=== PATIENT | male | born 1975 | race Caucasian/White ===

== ENCOUNTER 2017-04-09 15:12 | Emergency (ER) | payer SELFPAY ==
[~2017-04-09] VITALS: Ht 177.8 cm; Wt 60.9 kg
[~2017-04-09 15:12] MED LIST: ALBU1AER9 INH
[2017-04-09 15:14] VITALS: TEMP 36.5; Ht 177.8 cm; Wt 60.9 kg
[2017-04-09] MEDS ORDERED: XYLOCAINE 1%/SOD BICARB 20 ML VIAL INFIL ONE ×2 (15:40→15:45)
--- NOTE | 2017-04-09 16:11 | EMERGENCY ROOM VISIT NOTE ---
ED Visit Note First contact with patient: 15:21 CHIEF COMPLAINT: Left forearm laceration HISTORY OF PRESENT ILLNESS: This 41-year-old male patient presents to the emergency department approximately one hour after cutting the left posterior forearm. The patient states his friend was using a chain saw to cut underbrush , when the chainsaw kicked up and cut his posterior left forearm. The bleeding has not stopped, but has slowed significantly. Denies weakness or numbness of the right arm or fingers. The patient rates the pain as throbbing and 9.5/10. The patient denies any other injuries. The patient's Tetanus shot is up to date. REVIEW OF SYSTEMS: A 6 system review of systems was completed with positives and pertinent negatives listed in the HPI. ALLERGIES: None MEDICATIONS: None PMH: None SOCIAL HISTORY: The patient lives locally with family. He denies drug, alcohol use. He does report smoking 1 pack cigarettes per day. PHYSICAL EXAM: Vital Signs: Reviewed Nurse's notes, vital signs stable. GENERAL : 41-year-old male, in no acute distress, well-developed, well-nourished. SKIN : There is a 4 cm long laceration on the posterior aspect of the middle of the left forearm. The edges gape apart with and without traction. There is no foreign material in the wound and it looks clean. There is minimal active bleeding. There is a visible vein noted in the wound, however the vein remains in tact. Muscle is visible, however, the wound did not cut below the fascia. No other deep structures such as tendons or bones are seen in the base of the wound. 2 smaller, 1.5 cm lacerations just proximal to the wound on the forearm. These are not down to the muscle or fascia. Normal strength and movement of the right upper extremity, elbow, wrist, hand. Capillary refill less than 2 seconds. Normal sensation to light and sharp touch. EMERGENCY DEPARTMENT COURSE: I examined the patient. Verbal consent was obtained to perform the procedure. Using sterile technique the wound was cleansed with Betadine. The area was sterilely draped. 10 ml of 1% buffered lidocaine was used to anesthetize the laceration on the posterior left forearm. Once the patient was anesthetized, the wound was copiously irrigated under pressure with sterile saline. The wound was explored and was as described above. The laceration was repaired by our PA student under my direct supervision using 20 simple interrupted 5-0 nylon sutures with the wound edges being well approximated. The patient tolerated the procedure well. Hemostasis was achieved. The area was cleaned with sterile saline and dressed with bacitracin ointment and bandage. The patient was discharged home in good condition. DIFFERENTIAL DIAGNOSIS: Laceration with muscle or tendon involvement, forearm fracture, FB in laceration, laceration with blood vessel involvement, and others. DIAGNOSIS: Left posterior forearm laceration DISCHARGE INSTRUCTIONS & TREATMENT: You have received 20 sutures on your right arm. These sutures are NOT dissolvable and WILL need to be removed by a health care provider in 8-10 days. You can return to the Emergency Department or contact your Primary Care Provider to have the sutures removed. Proper wound care is essential for adequate wound healing and infection prevention. You can shower and clean the wound with soap and water. Do not scour over the wound, pat dry with a towel. Do not submerse the wound (i.e. bathe or dish wash) until the sutures have been removed. You can use an antibiotic ointment with a dressing over the wound for the next 3-4 days. After this time you may leave the wound dry and open to the air. If crust develops over the wound you can use a Q-tip to apply a 1:1 peroxide:water solution to clean the wound. Look for signs of infection of the wound including: increased pain, swelling, foul discharge, streaking, or increased temperature. If any of these are noticed you should return to the Emergency Department for further assessment and treatment. As with any laceration you may have received nerve damage to the surrounding tissues. This damage may or may not be permanent. You should keep the area covered with sunscreen for the first 6 months to 1 year when at risk for exposure to help minimize scarring. You can also use scar reducing creams or Vitamin E oil to help minimize scarring. For pain control, you can use the following kzze-bkn-mevajkh medicines (if >12 yo): - Regular strength (325mg/tab) Tylenol (acetaminophen) 2 tabs every 4-6 hours as needed. Do not exceed 9 tablets in a 24 hour period. Avoid taking more than 3 grams (3000 mg) of Tylenol per day. This includes any other sources of acetaminophen you may take on a regular basis. - Regular strength (200 mg/tab) Advil (ibuprofen) 1-2 tabs every 4-6 hours as needed. Do not exceed a dose of 3200 mg per day. Return to the emergency department if your symptoms worsen despite treatment course outlined above. Current/Historical Medications No Active Prescriptions or Reported Meds Allergies Coded Allergies: No Known Allergies (Unverified , 08/07/15) Vital Signs Date Time Temp Pulse Resp B/P (MAP) Pulse Ox O2 Delivery O2 Flow Rate FiO2 04/09/17 17:20 71 16 136/87 96 04/09/17 15:14 36.5 91 16 131/85 97 Room Air Departure Information Impression Primary Impression: Laceration of upper extremity Dispostion Home / Self-Care Condition GOOD Prescriptions No Active Prescriptions or Reported Meds Referrals No Doctor, Assigned (PCP) Patient Instructions ED Laceration Ext Sutr Stap Tape, DancingAnchovy Additional Instructions You have received 20 sutures on your right arm. These sutures are NOT dissolvable and WILL need to be removed by a health care provider in 8-10 days. You can return to the Emergency Department or contact your Primary Care Provider to have the sutures removed. Proper wound care is essential for adequate wound healing and infection prevention. You can shower and clean the wound with soap and water. Do not scour over the wound, pat dry with a towel. Do not submerse the wound (i.e. bathe or dish wash) until the sutures have been removed. You can use an antibiotic ointment with a dressing over the wound for the next 3-4 days. After this time you may leave the wound dry and open to the air. If crust develops over the wound you can use a Q-tip to apply a 1:1 peroxide:water solution to clean the wound. Look for signs of infection of the wound including: increased pain, swelling, foul discharge, streaking, or increased temperature. If any of these are noticed you should return to the Emergency Department for further assessment and treatment. As with any laceration you may have received nerve damage to the surrounding tissues. This damage may or may not be permanent. You should keep the area covered with sunscreen for the first 6 months to 1 year when at risk for exposure to help minimize scarring. You can also use scar reducing creams or Vitamin E oil to help minimize scarring. For pain control, you can use the following vcwd-kdr-ddwtqdn medicines (if >12 yo): - Regular strength (325mg/tab) Tylenol (acetaminophen) 2 tabs every 4-6 hours as needed. Do not exceed 9 tablets in a 24 hour period. Avoid taking more than 3 grams (3000 mg) of Tylenol per day. This includes any other sources of acetaminophen you may take on a regular basis. - Regular strength (200 mg/tab) Advil (ibuprofen) 1-2 tabs every 4-6 hours as needed. Do not exceed a dose of 3200 mg per day. Return to the emergency department if your symptoms worsen despite treatment course outlined above. Problem Qualifiers Primary Impression: Laceration of upper extremity Encounter type: initial encounter Laterality: left Qualified Codes: S41.112A - Laceration without foreign body of left upper arm, initial encounter
[2017-04-09 17:20] VITALS: BP 136/87; PULSE 71; O2SAT 96
== END 2017-04-09 17:22 | disposition home or self-care (01) ==
LOC: C.EDB 15:14 → C.EDD 17:22
DX: S41.112A Laceration without foreign body of left upper arm, initial encounter (principal); W29.3XXA Contact with powered garden and outdoor hand tools and machinery, initial encounter; F17.200 Nicotine dependence, unspecified, uncomplicated

== ENCOUNTER 2017-04-25 18:47 | Emergency (ER) | payer SELFPAY ==
[~2017-04-25] VITALS: Ht 177.8 cm; Wt 58.5 kg
[2017-04-25 18:49] VITALS: TEMP 36.5; Ht 177.8 cm; Wt 58.5 kg
--- NOTE | 2017-04-25 19:06 | EMERGENCY ROOM VISIT NOTE ---
ED Visit Note First contact with patient: 18:52 CHIEF COMPLAINT: Suture removal HPI: This patient returns to the ED today for removal of sutures that were placed 16 days ago. There has been no swelling, redness, or drainage from the wound. The patient feels like the laceration is healing well. The patient denies fevers, chills, nausea, vomiting, pus, or other concerning symptoms. He states he has late coming in to have the sutures removed because he has been very busy at work. REVIEW OF SYSTEMS: A complete 6 point review of systems was reviewed with the patient with pertinent positives and negatives as per history of present illness. All else were negative. PMH: None MEDS: None Allergies: None SOCIAL HISTORY: The patient lives locally with family. He denies drug, tobacco use. The patient does report socially drinking alcohol. PHYSICAL EXAM: Vital Signs: Reviewed Nurse's notes. There is a sutured wound on the left forearm with no signs of infection. There is no erythema, swelling , or tenderness. EMERGENCY DEPARTMENT COURSE: The 20 sutures were removed without any difficulty and there was no separation of the wound edges. There was a mild amount of drainage from a portion of the wound as the scab came up with the sutures. The wound was bandaged with bacitracin ointment and a Band-Aid. The patient was discharged home in good condition. DIAGNOSIS: Healing laceration and suture removal DISCHARGE INSTRUCTIONS AND TREATMENT: Wash any remaining crusts off of the wound today and resume your normal activities. Current/Historical Medications No Active Prescriptions or Reported Meds Allergies Coded Allergies: No Known Allergies (Unverified , 08/07/15) Vital Signs Date Time Temp Pulse Resp B/P (MAP) Pulse Ox O2 Delivery O2 Flow Rate FiO2 04/25/17 18:49 36.5 98 18 120/79 95 Room Air Departure Information Impression Primary Impression: Encounter for removal of sutures Additional Impression: Laceration of left forearm Dispostion Home / Self-Care Condition GOOD Prescriptions No Active Prescriptions or Reported Meds Referrals No Doctor, Assigned (PCP) Patient Instructions [facility] Additional Instructions Proper wound care is essential for adequate wound healing and infection prevention. You can shower and clean the wound with soap and water. Do not scour over the wound, pat dry with a towel. Do not submerse the wound (i.e. bathe or dish wash) until the wound has fully healed. You can use an antibiotic ointment with a dressing over the wound for the next 3-4 days. After this time you may leave the wound dry and open to the air.\ For pain control, you can use the following tiiz-csg-dgioohm medicines (if >12 yo): - Regular strength (325mg/tab) Tylenol (acetaminophen) 2 tabs every 4-6 hours as needed. Do not exceed 9 tablets in a 24 hour period. Avoid taking more than 3 grams (3000 mg) of Tylenol per day. This includes any other sources of acetaminophen you may take on a regular basis. - Regular strength (200 mg/tab) Advil (ibuprofen) 1-2 tabs every 4-6 hours as needed. Do not exceed a dose of 2400 mg per day. Please return to the emergency department for worsening symptoms including pus, redness, fever, chills, nausea, vomiting, body aches, or other associated symptoms. Problem Qualifiers Additional Impression: Laceration of left forearm Encounter type: subsequent encounter Qualified Codes: S51.812D - Laceration without foreign body of left forearm, subsequent encounter
[2017-04-25 19:17] VITALS: BP 129/89; PULSE 89; O2SAT 93
== END 2017-04-25 19:18 | disposition home or self-care (01) ==
LOC: C.EDB 18:47 → C.EDD 19:18
DX: S51.812D Laceration without foreign body of left forearm, subsequent encounter (principal); X58.XXXD Exposure to other specified factors, subsequent encounter

== ENCOUNTER 2017-11-03 22:48 | Emergency (ER) | payer SELFPAY ==
[~2017-11-03] VITALS: Ht 177.8 cm; Wt 63.8 kg
[2017-11-03 23:03] VITALS: TEMP 36.7; Ht 177.8 cm; Wt 63.8 kg
[2017-11-03] MEDS ORDERED: SODIUM CHLORIDE 0.9% 1000ML 1,000 ML IV STA (23:15)
[2017-11-03 23:30] VITALS: O2SAT 98
[2017-11-03 23:36] LABS: BASO % 0.5 %; BASO ABS # 0.04 K/uL (0-0.2); EOS ABS # 0.45 K/uL (0-0.5); HEMATOCRIT 39.1 % (42-52); HEMOGLOBIN 13.7 g/dL (14.0-18.0); IG# 0.01 K/uL (0.00-0.02); MEAN CELL VOLUME 93.3 fL (80-100); MEAN CORPUSCULAR HEMOGLOBIN 32.7 pg (25-34); MEAN PLATELET VOLUME 9.4 fL (7.4-10.4); MONO % 9.7 %; MONO ABS # 0.72 K/uL (0.11-0.59); NEUT % 44.7 %; NEUT ABS # 3.32 K/uL (1.4-6.5); PLATELET COUNT 270 K/uL (130-400); RED CELL DISTRIBUTION WIDTH CV 12.9 % (11.5-14.5); RED CELL DISTRIBUTION WIDTH SD 43.5 fL (36.4-46.3); WHITE BLOOD COUNT 7.44 K/uL (4.8-10.8)
--- NOTE | 2017-11-03 23:41 | DIAGNOSTIC IMAGING REPORT ---
CT SCAN OF THE BRAIN WITHOUT IV CONTRAST CLINICAL HISTORY: Headache. Blurry vision. COMPARISON STUDY: CT of the brain dated 03/25/2011. TECHNIQUE: Unenhanced axial CT scan of the brain is performed from the vertex to the skull base. A dose lowering technique was utilized adhering to the principles of ALARA. CT DOSE: 537.48 mGy.cm FINDINGS: Brain parenchyma: The brain parenchyma is normal in appearance. There is no hemorrhage, mass effect, or evidence of acute territorial ischemia by CT criteria. Rivero-white matter is preserved. No extra-axial fluid collection is seen. Ventricles, sulci, cisterns: Normal in configuration. Intracranial vasculature: The visualized intracranial vasculature at the skull base is normal in appearance. Calvarium: Unremarkable. Sinuses and mastoids: There is moderate mucosal thickening within air-fluid level seen in the left maxillary antrum. Mild mucosal thickening is seen in the left sphenoid sinus. The remaining visualized paranasal sinuses are clear. The mastoid air cells are well pneumatized. Orbits: The bony orbits are grossly intact. IMPRESSION: 1. No acute intracranial abnormality. 2. Left maxillary sinus disease as above. Electronically signed by: Kelton Thomas M.D. 11/03/2017 11:40 PM Dictated Date/Time: 11/03/2017 11:38 PM
[2017-11-03 23:56] LABS: ALBUMIN 3.7 gm/dl (3.4-5.0); CALCIUM 8.3 mg/dl (8.5-10.1); CREATININE 0.76 mg/dl (0.60-1.40); POTASSIUM 3.7 mmol/L (3.5-5.1)
[2017-11-03 23:59] LABS: TOTAL PROTEIN 7.7 gm/dl (6.4-8.2)
[2017-11-04] MEDS ORDERED: AMOXICIL/CLAVU 875MG HOME PACK PO ONE (00:45)
[2017-11-04] MEDS ORDERED: AMOX875T PO (00:52)
[2017-11-04 01:09] VITALS: BP 110/78; PULSE 78; O2SAT 96
--- NOTE | 2017-11-04 05:45 | EMERGENCY ROOM VISIT NOTE ---
History First contact with patient: 23:08 Chief Complaint: HEADACHE Stated Complaint: HEADACHE,BLURRED VISION,PAIN History of Present Illness The patient is a 42 year old male who presents to the Emergency Room with complaints of intermittent headaches for the past week who drinks alcohol and smokes heavily. Patient also claims of left sinus pain and congestion. Headache described as throbbing, ranging in severity 3 out of 10 that comes and goes. Patient states has been intermittent all week. Patient denies chest pain , dyspnea, fever, chills, localized weakness, numbness, tingling, sore throat, cold symptoms, abdominal pain, earache. Patient is tolerating p.o. fluids and food. Patient states he is only had 3 alcoholic beers before coming in. Review of Systems An 10 system review of systems was completed with positives and pertinent negatives listed in the HPI. Past Medical/Surgical History None Social History Smoking Status: Current Every Day Smoker Alcohol Use: heavy Drug Use: none Marital Status: single Housing Status: lives alone Occupation Status: employed Current/Historical Medications Scheduled Amoxicillin & Pot Clavulanate (Augmentin 875-125 mg), 1 TAB PO BID Physical Exam Vital Signs Date Time Temp Pulse Resp B/P (MAP) Pulse Ox O2 Delivery O2 Flow Rate FiO2 11/04/17 01:09 78 18 110/78 96 Room Air 11/04/17 00:26 72 18 111/80 100 Room Air 11/03/17 23:48 87 11/03/17 23:30 88 18 105/91 96 Room Air 11/03/17 23:30 98 Room Air 11/03/17 23:03 36.7 102 18 130/74 96 Room Air Physical Exam VITALS: Vitals are noted on the nurse's note and reviewed by myself. Vital signs stable. GENERAL: Disheveled white male with EtOH odor and tobacco odor, in no acute distress, nondiaphoretic, well-developed well-nourished. SKIN: The skin was without rashes, erythema, edema, or bruising. There is no tenting of the skin. Capillary reflex less than 2 seconds. HEAD: Normocephalic atraumatic. EARS: External auditory canals clear, tympanic membranes pearly rivero without erythema or effusion bilaterally. EYES: Pupils equal round and reactive to light and accommodation. Conjunctivae without injection, sclerae without icterus. Extraocular movements intact. NOSE: Patent, turbinates without inflammation or discharge. Left maxillary sinus tenderness. MOUTH: Mucous membranes mildly dry. Pharynx without erythema or exudate. Uvula midline. Airway patent. Tongue does not deviate. NECK: Supple without nuchal rigidity. No lymphadenopathy. No thyromegaly. Cervical spine is nontender. No JVD. No meningeal signs HEART: Regular rate and rhythm without murmurs gallops or rubs. LUNGS: Clear to auscultation bilaterally without wheezes, rales or rhonchi. No dullness to percussion. No retractions or accessory muscle use. ABDOMEN: Positive bowel sounds x 4. Normal tympanic percussion. Soft, nontender, without masses or organomegaly. Adhikari sign negative. No guarding or rebound tenderness. MUSCULOSKELETAL: No muscle atrophy, erythema, or edema noted. NEURO: Patient was alert and oriented to person place and time. Normal sensation to light and sharp touch. No focal neurological deficits. Medical Decision & Procedures Laboratory Results 11/03/17 23:25 Red Blood Count 4.19, Mean Corpuscular Volume 93.3, Mean Corpuscular Hemoglobin 32.7, Mean Corpuscular Hemoglobin Concent 35.0, Mean Platelet Volume 9.4, Neutrophils (%) (Auto) 44.7, Lymphocytes (%) (Auto) 39.0, Monocytes (%) (Auto) 9.7, Eosinophils (%) (Auto) 6.0, Basophils (%) (Auto) 0.5, Neutrophils # (Auto) 3.32, Lymphocytes # (Auto) 2.90, Monocytes # (Auto) 0.72, Eosinophils # (Auto) 0.45, Basophils # (Auto) 0.04 11/03/17 23:25 Test 11/03/17 23:25 White Blood Count 7.44 K/uL (4.8-10.8) Red Blood Count 4.19 M/uL (4.7-6.1) Hemoglobin 13.7 g/dL (14.0-18.0) Hematocrit 39.1 % (42-52) Mean Corpuscular Volume 93.3 fL (80-100) Mean Corpuscular Hemoglobin 32.7 pg (25-34) Mean Corpuscular Hemoglobin Concent 35.0 g/dl (32-36) Platelet Count 270 K/uL (130-400) Mean Platelet Volume 9.4 fL (7.4-10.4) Neutrophils (%) (Auto) 44.7 % Lymphocytes (%) (Auto) 39.0 % Monocytes (%) (Auto) 9.7 % Eosinophils (%) (Auto) 6.0 % Basophils (%) (Auto) 0.5 % Neutrophils # (Auto) 3.32 K/uL (1.4-6.5) Lymphocytes # (Auto) 2.90 K/uL (1.2-3.4) Monocytes # (Auto) 0.72 K/uL (0.11-0.59) Eosinophils # (Auto) 0.45 K/uL (0-0.5) Basophils # (Auto) 0.04 K/uL (0-0.2) RDW Standard Deviation 43.5 fL (36.4-46.3) RDW Coefficient of Variation 12.9 % (11.5-14.5) Immature Granulocyte % (Auto) 0.1 % Immature Granulocyte # (Auto) 0.01 K/uL (0.00-0.02) Anion Gap 10.0 mmol/L (3-11) Est Creatinine Clear Calc Drug Dose 113.1 ml/min Estimated GFR () 129.5 Estimated GFR (Non- 111.7 BUN/Creatinine Ratio 10.3 (10-20) Calcium Level 8.3 mg/dl (8.5-10.1) Total Bilirubin 0.6 mg/dl (0.2-1) Direct Bilirubin 0.1 mg/dl (0-0.2) Aspartate Amino Transf (AST/SGOT) 22 U/L (15-37) Alanine Aminotransferase (ALT/SGPT) 24 U/L (12-78) Alkaline Phosphatase 67 U/L (45-117) Total Protein 7.7 gm/dl (6.4-8.2) Albumin 3.7 gm/dl (3.4-5.0) Ethyl Alcohol mg/dL 229.0 mg/dl (0-3) Medications Administered Medications (Trade) Dose Ordered Sig/Donnie Route Start Time Stop Time Status Last Admin Dose Admin Sodium Chloride 1,000 ml @ 999 mls/hr Q1H1M STAT IV 11/03/17 23:15 11/04/17 00:15 DC 11/03/17 23:15 999 MLS/HR Amoxicillin/ Clavulanate Potassium (Augmentin 875MG Home Pack) 1 [facility] UD ONCE PO 11/04/17 00:45 11/04/17 00:49 DC 11/04/17 01:00 1 [facility] ED Course Prior records/ancillary studies reviewed. Additional history obtained from family. Triage Nursing notes reviewed. The patient's history was concerning for headache. Differential diagnosis: Etiologies such as migraine headache, dehydration, alcoholism, meningitis, sinusitis, CO exposure, ICH, SAH, infection, tumor, headache, sinus thrombosis, arterial dissection, as well as others were entertained. Physical examination findings: As above. Non-focal. ER treatment provided: IV fluids, Augmentin On reassessment the patient felt better. Diagnostics interpreted by me: The labs revealed no worrisome leukocytosis. Elevated alcohol Imaging studies: CT SCAN OF THE BRAIN WITHOUT IV CONTRAST CLINICAL HISTORY: Headache. Blurry vision. COMPARISON STUDY: CT of the brain dated 03/25/2011. TECHNIQUE: Unenhanced axial CT scan of the brain is performed from the vertex to the skull base. A dose lowering technique was utilized adhering to the principles of ALARA. CT DOSE: 537.48 mGy.cm FINDINGS: Brain parenchyma: The brain parenchyma is normal in appearance. There is no hemorrhage, mass effect, or evidence of acute territorial ischemia by CT criteria. Rivero-white matter is preserved. No extra-axial fluid collection is seen. Ventricles, sulci, cisterns: Normal in configuration. Intracranial vasculature: The visualized intracranial vasculature at the skull base is normal in appearance. Calvarium: Unremarkable. Sinuses and mastoids: There is moderate mucosal thickening within air-fluid level seen in the left maxillary antrum. Mild mucosal thickening is seen in the left sphenoid sinus. The remaining visualized paranasal sinuses are clear. The mastoid air cells are well pneumatized. Orbits: The bony orbits are grossly intact. IMPRESSION: 1. No acute intracranial abnormality. 2. Left maxillary sinus disease as above. Electronically signed by: Kelton Thomas M.D. This appears to be consistent with dehydration from alcoholism and sinus headache. Patient was tender so he was started on antibiotics for sinus infection. He was strongly encouraged to quit drinking alcohol and smoking. He was advised to follow-up family care for further evaluation and treatment for his ongoing tobacco abuse and alcohol problem. Patient was neurovascular and neurologic intact. His girlfriend was here felt comfortable taking him home. No other complaints were noted by the patient. He was advised to return to ER immediately for headache, fevers, confusion, worsening sinus symptoms or as needed. Patient does have the meningitis. He was stable appearing. By the evaluation outlined above emergent etiologies such as meningitis CO exposure, ICH, SAH, infection, temporal arteritis, tumor, sinus thrombosis, arterial dissection, as well as others were deemed relatively unlikely. The pt informed about the findings as listed above. All questions were answered and pleased with the treatment. Return instructions were outlined and the patient was discharged in stable condition. Outpatient prescription management: Augmentin Referral: The patient was referred back to their primary care physician for follow-up in 2 to 3 days for a recheck of the current condition. Case reviewed with my attending Medical Decision as above Medication Reconcilliation Current Medication List: was personally reviewed by me Blood Pressure Screening Patient's blood pressure: Normal blood pressure Impression Primary Impression: Alcohol intoxication Additional Impression: Sinus headache Departure Information Dispostion Home / Self-Care Condition GOOD Prescriptions Amoxicillin & Pot Clavulanate (Augmentin 875-125 mg) 1 Tab Tab 1 TAB PO BID for 9 Days, #18 TAB Prov: Lennie Valdes .FANY 11/04/17 Forms HOME CARE DOCUMENTATION FORM, IMPORTANT VISIT INFORMATION Patient Instructions Headaches Sinus, My [facility] Additional Instructions Strongly recommend that you quit drinking alcohol in excess and smoking. You need to get checked for COPD/emphysema. Amoxicillin Clavulanate (Augmentin) 875mg: Take one pill twice daily for 10 days for your infection. All antibiotics can cause diarrhea. If this occurs and you feel worse or it does not resolve in 1-2 days follow up with your doctor or return to the Emergency Department as this could be signs of serious underlying problems. Any medication can cause an allergic reaction, stop the pills immediately and return to the ER for rash, hives, breathing difficulties, or swelling. Acetaminophen(Tylenol) may be used for fever or pain. Use 1000mg every six hours as needed. Avoid using more than 3000mg in a 24 hour period. (AND/OR) Ibuprofen(Motrin, Advil) may be used for fever or pain. Use 600mg every six hours as needed. Take with food. Avoid using more than 2400mg in a 24 hour period. Do not use 2400mg per day for more than three consecutive days without physician direction. Prolonged inappropriate use can lead to stomach upset or ulcers. Afrin nasal spray: 2-3 sprays to each nostril twice daily as needed for congestion. Do not use for more than 3-4 days because it can lead to worsening rebound congestion. Pseudoephedrine(Sudaphed): 30-60mg every 6 hours as needed for nasal congestion. Do not take this with other stimulant products or supplements. Rest and drink plenty of fluids. Controlling your fever with Tylenol and Ibuprofen as above will make you feel better. Wash your hands after nose blowing, sneezing, or coughing. Most germs are spread through contact, therefore improper hygiene may result in your close contacts and loved ones becoming ill just like you. Continue current medications. Return to the ER for severe headache, neck stiffness, chest pain, difficulty breathing, fevers, vomiting, worsening of your condition, or as needed. Follow up with your primary physician this week for a recheck of your current condition. Problem Qualifiers
== END 2017-11-04 01:18 | disposition home or self-care (01) ==
LOC: C.EDB 22:51
DX: F10.920 Alcohol use, unspecified with intoxication, uncomplicated (principal); R51 Headache; F17.200 Nicotine dependence, unspecified, uncomplicated

== ENCOUNTER 2021-04-14 16:06 | Inpatient (IN) ==
[2021-04-14] MEDS ORDERED: PANTOprazole 80 MG in DEXTROSE 5% 100 ML IV ONE (16:50)
[2021-04-14] MEDS ORDERED: ONDANSETRON INJ 2 MG/ML 2 ML VIAL IV STA ×2 (16:50→20:03)
[2021-04-14] MEDS ORDERED: cefTRIAXone SODIUM 1,000 MG/50 ML BAG IV STA (16:50)
[2021-04-14] MEDS ORDERED: PANTOPRAZOLE BOLUS/DRIP 1 EA IV STA (16:50)
[2021-04-14 16:52] LABS: Basophils # (auto) 0.03 K/uL (0-0.2); Basophils % (auto) 0.2 %; Eosinophils % (auto) 0.7 %; Hemoglobin 15.3 g/dL (14.0-18.0); Immature Granulocytes # (auto) 0.02 K/uL (0.00-0.02); Immature Granulocytes % (auto) 0.1 %; Lymphocytes # (auto) 1.13 K/uL (1.2-3.4); Lymphocytes % (auto) 8.2 %; Mean Corpuscular Hemoglobin 33.3 pg (25-34); Mean Corpuscular Hgb Conc 34.8 g/dL (32-36); Mean Corpuscular Volume 95.9 fL (80-100); Mean Platelet Volume 9.5 fL (7.4-10.4); Monocytes # (auto) 0.71 K/uL (0.11-0.59); Monocytes % (auto) 5.1 %; Neutrophils % (auto) 85.7 %; Platelet Count 321 K/uL (130-400); RDW Coefficient of Variation 12.9 % (11.5-14.5); RDW Standard Deviation 44.5 fL (36.4-46.3); Red Blood Count 4.59 M/uL (4.7-6.1); White Blood Count 13.79 K/uL (4.8-10.8)
[2021-04-14 16:55] LABS: iSTAT Creatinine 0.9 mg/dl (0.6-1.3); iSTAT Hemoglobin 16.3 g/dl (14.0-18.0); iSTAT Ionized Calcium 1.09 mmol/l (1.12-1.32); iSTAT Potassium 3.6 mmol/L (3.3-5.0)
[2021-04-14 17:10] LABS: Alanine Aminotransferase 56 U/L (12-78); Albumin Level 4.2 gm/dl (3.4-5.0); Aspartate Aminotransferase 66 U/L (15-37); BUN Creatinine Ratio 14.5 (10-20); Blood Urea Nitrogen 14 mg/dl (7-18); Calcium 9.6 mg/dl (8.5-10.1); Carbon Dioxide 25 mmol/L (21-32); Chloride 104 mmol/L (98-107); Creatinine Clr Calc Pharmacy 92.2 ml/min; Est GFR (African American) 112.2 ml/min; Est GFR (Non-African American) 96.8 ml/min; Glucose 94 mg/dl (70-99); Lipase 93 U/L (73-393); Potassium 3.5 mmol/L (3.5-5.1); Sodium 140 mmol/L (136-145)
--- NOTE | 2021-04-14 17:11 | Emergency Department Note ---
Impression & Plan Acute upper gastrointestinal bleeding, Alcohol abuse, Leukocytosis ED Provider Note NAME: CLEMENCIA SIBLEY AGE: 45 SEX: M : 1975 ARRIVES VIA: Walk-In INFORMANT: Patient ED PROVIDER(S): Geovanni Roberts DO CHIEF COMPLAINT: Hematemesis HPI: Patient is a 45-year-old gentleman who drinks about 6 beers a day for the past 20 to 30 years who presents to the ER for vomiting up blood. He notes this started over the past 24 hours. He notes nausea and epigastric abdominal pain. He stopped taking his Eliquis 3 days ago. He notes intermittently when he vomited he noticed some streaks of blood. Denies any dark tarry stools or black stools. No previous endoscopies. No chest pain but mild shortness of breath with the vomiting. He notes his throat is also sore with the vomiting. No dysuria, urgency, or frequency. No other exacerbating or remitting factors. ROS: See above HPI for pertinent positives & negatives. A total of 10 systems reviewed and were otherwise negative. PAST MEDICAL HISTORY:See Below PAST SURGICAL HISTORY:See Below FAMILY HISTORY:See Below SOCIAL HISTORY:See Below HOME MEDICATIONS:See Below ALLERGIES:See Below VITALS:See Below PHYSICAL EXAMINATION: GENERAL: Sitting up in bed, alert, ill-appearing, disheveled EYE EXAM: normal conjunctiva. OROPHARYNX: no exudate, no erythema, lips, buccal mucosa, and tongue normal and mucous membranes are moist NECK: supple, no nuchal rigidity, no adenopathy, non-tender LUNGS: Clear to auscultation. Normal chest wall mechanics HEART: no murmurs, S1 normal and S2 normal ABDOMEN: abdomen soft, tender in the epigastric region, normo-active bowel sounds, no masses, no rebound or guarding. UPPER EXTREMITIES: upper extremities are grossly normal. LOWER EXTREMITIES: No pitting edema. NEURO EXAM: Normal sensorium, cranial nerves II-XII grossly intact, normal speech, no gross weakness of arms, no gross weakness of legs. MEDICAL DECISION MAKING: Patient is a 45-year-old gentleman the presents the ER for hematemesis which is going on for the past 24 hours. He is on a NOAC but stopped his Eliquis about 3 days ago. IV was established blood work was obtained. Labs show leukocytosis of 13,000. No significant anemia. BMP with LFTs was remarkable for slightly elevated T bili at 1.5 and AST of 66. Troponin was negative. Lipase is unremarkable. Patient was typed and screened. Covid was negative. CT abdomen pelvis showed collapsed large Sams with some inflammatory stranding. Patient was placed on a Protonix drip and bolus, given Rocephin and placed on octreotide after discussion with Jonathan Stover from gastroenterology. N.p.o. after midnight and will scope in the morning unless clinical status changes. Triage Nursing notes reviewed. Limited review of prior medical records performed Vital Signs: reviewed and remarkable for HTN Differential diagnosis: Differential diagnoses includes but is not limited to gastritis, peptic ulcer disease, GERD, gallbladder disease, pancreatitis, small bowel obstruction, acute coronary syndrome, pericarditis, ischemic bowel, irritable bowel disease, irrita ble bowel syndrome, appendicitis, diverticulitis, malignancy, hernia, urinary tract infection, torsion, perforation, trauma, infectious. ER treatment provided: See below Diagnostics interpreted by me: ECG: Sinus rhythm rate of 70 Normal axis No PVCs QTC 434 Cardiac Monitoring: An order was placed for continuous cardiac monitoring. The monitor shows a rate of 83 with sinus rhythm. Laboratory studies: As stated above and show below. Imaging studies: CT abdomen pelvis as discussed above Consultation(s): Discussed with Jonathan Stover from GI as discussed above Discussed with the hospitalist Dr. Ramses Castorena and eventually Dr. Kvng Sandhu for admission Critical Care: I have personally spent minutes of critical care time in the direct management of this patient. This includes bedside care, interpretation of diagnostic studies, and testing, discussion with consultants, patient, and family members, and other required patient management activities. This minutes is in excess of all separately billable procedures. Past Med/Surg History Medical History (Updated 04/14/21 @ 21:18 by Geovanni Roberts DO) Acute transient psychotic disorder (03/31/11) Alcohol intoxication Bronchitis Closed cervical spine fracture (2011) Sinus headache Wheezy bronchitis Surgical History (Updated 02/04/21 @ 10:39 by KAUSHIK Corbin) History of neck surgery Family History (Updated 02/04/21 @ 10:40 by KAUSHIK Corbin) Aunt Breast cancer Myocardial infarction Uncle Myocardial infarction Brother Myocardial infarction Denies family history of Ovarian cancer Prostate cancer Colorectal cancer Social History (Updated 02/04/21 @ 10:42 by KAUSHIK Corbin) Smoking Status: Current every day smoker Tobacco Type: Cigarettes packs per day: 0.5; Hx Alcohol Use: Yes Alcohol Intake Frequency: 2-3 x/Week Hx Substance Use: No Preferred Language: Slovenian marital status: Single Current Living Situation: Family current occupational status: employed Feels Safe at Home: Yes caffeine: Yes Dental Care, Regularly: No Physical Activity Frequency: Daily Seatbelt Use: always Sunscreen Use: No Allergies Allergies Allergy/AdvReac Type Severity Reaction Status Date / Time No Known Allergies Allergy Mild Verified 04/14/21 18:08 Home Meds Home Medications Medication Instructions Recorded Confirmed multivitamin 1 tab PO QAM 07/03/20 04/14/21 apixaban 5 mg (74 tabs) tablets in 5 mg PO BID ea 10/08/20 04/14/21 a dose pack (Eliquis) Previous Rx's Medication Instructions Recorded nicotine (polacrilex) 4 mg buccal 4 mg BUCCAL Q8H PRN #72 ea 11/19/20 lozenge clonidine HCl 0.1 mg tablet 0.1 mg PO BID #60 tab 02/04/21 umeclidinium 62.5 mcg-vilanterol 1 ea INHALATION DAILY #60 ea 02/04/21 25 mcg/actuation powdr for inhalation (Anoro Ellipta) varenicline 1 mg tablet (Chantix 1 mg PO BID #56 tab 02/04/21 Continuing Month Box) albuterol sulfate 90 mcg/actuation 2 puff INHALATION Q6H PRN #18 g 04/05/21 aerosol inhaler metoprolol tartrate 25 mg tablet 25 mg PO BID PRN #60 tab 04/05/21 omeprazole 40 mg capsule,delayed 40 mg PO BID #180 cap 04/05/21 release Results & Data (ED) Vital Signs Vital Signs - 24 hr 04/14/21 16:17 04/14/21 16:20 04/14/21 16:30 Temperature 36.1 C L Temperature Source Temporal Artery Scan Pulse Rate 83 72 Pulse Rate [Apical] 75 Pulse Rate [Finger] Pulse Rate from SpO2 Sensor 73 Pulse Rhythm [Apical] Regular Respiratory Rate 20 16 19 Respiratory Effort / Characteristics Non-Labored Spontaneous Non-Labored Respiratory Depth Normal Normal Respiratory Pattern Regular Blood Pressure 149/93 H 155/101 H Blood Pressure [Left Arm] 155/101 H Blood Pressure Mean 111 119 Blood Pressure Mean [Left Arm] 119 Pulse Oximetry 98 99 95 Oxygen Delivery Method Room Air Room Air Sepsis Recent Fever Within 48 Hours No Sepsis New/Unexplained Change in Mental Status No Sepsis Action Taken by Nursing No Action Required 04/14/21 16:42 04/14/21 17:06 04/14/21 17:36 Temperature Temperature Source Pulse Rate 68 Pulse Rate [Apical] 82 Pulse Rate [Finger] Pulse Rate from SpO2 Sensor Pulse Rhythm [Apical] Respiratory Rate 16 Respiratory Effort / Characteristics Non-Labored Respiratory Depth Normal Respiratory Pattern Blood Pressure Blood Pressure [Left Arm] 145/94 H Blood Pressure Mean Blood Pressure Mean [Left Arm] 111 Pulse Oximetry 99 96 Oxygen Delivery Method Room Air Room Air Sepsis Recent Fever Within 48 Hours Sepsis New/Unexplained Change in Mental Status Sepsis Action Taken by Nursing 04/14/21 18:00 04/14/21 18:30 04/14/21 19:00 Temperature Temperature Source Pulse Rate 84 85 81 Pulse Rate [Apical] 80 Pulse Rate [Finger] Pulse Rate from SpO2 Sensor 86 88 75 Pulse Rhythm [Apical] Regular Respiratory Rate 16 24 18 Respiratory Effort / Characteristics Non-Labored Respiratory Depth Normal Respiratory Pattern Blood Pressure 152/101 H 161/105 H 167/104 H Blood Pressure [Left Arm] 161/105 H Blood Pressure Mean 118 123 125 Blood Pressure Mean [Left Arm] 123 Pulse Oximetry 97 100 98 Oxygen Delivery Method Room Air Sepsis Recent Fever Within 48 Hours Sepsis New/Unexplained Change in Mental Status Sepsis Action Taken by Nursing 04/14/21 19:30 04/14/21 19:43 04/14/21 20:01 Temperature Temperature Source Pulse Rate 90 107 H Pulse Rate [Apical] Pulse Rate [Finger] 80 Pulse Rate from SpO2 Sensor 92 H 112 H Pulse Rhythm [Apical] Respiratory Rate 26 H 20 19 Respiratory Effort / Characteristics Non-Labored Spontaneous Respiratory Depth Respiratory Pattern Blood Pressure 152/93 H Blood Pressure [Left Arm] Blood Pressure Mean 112 Blood Pressure Mean [Left Arm] Pulse Oximetry 100 99 93 Oxygen Delivery Method Room Air Sepsis Recent Fever Within 48 Hours Sepsis New/Unexplained Change in Mental Status Sepsis Action Taken by Nursing Laboratory Data Result diagrams: 04/14/21 16:32 04/14/21 16:32 Lab Results 04/14/21 04/14/21 04/14/21 Range/Units 16:32 16:32 16:32 WBC 13.79 H (4.8-10.8) K/uL RBC 4.59 L (4.7-6.1) M/uL Hgb 15.3 (14.0-18.0) g/dL POC Hgb (14.0-18.0) g/dl Hct 44.0 (42-52) % POC Hct (42-52) % MCV 95.9 (80-100) fL MCH 33.3 (25-34) pg MCHC 34.8 (32-36) g/dL RDW Std Deviation 44.5 (36.4-46.3) fL RDW Coeff of Marguerite 12.9 (11.5-14.5) % Plt Count 321 (130-400) K/uL MPV 9.5 (7.4-10.4) fL Immature Gran % (Auto) 0.1 % Neut % (Auto) 85.7 % Lymph % (Auto) 8.2 % Morgan % (Auto) 5.1 % Eos % (Auto) 0.7 % Baso % (Auto) 0.2 % Neut # (Auto) 11.80 H (1.4-6.5) K/uL Lymph # (Auto) 1.13 L (1.2-3.4) K/uL Morgan # (Auto) 0.71 H (0.11-0.59) K/uL Eos # (Auto) 0.10 (0-0.5) K/uL Baso # (Auto) 0.03 (0-0.2) K/uL Immature Gran # (Auto) 0.02 (0.00-0.02) K/uL POC Sodium (135-144) mmol/L Sodium 140 (136-145) mmol/L POC Potassium (3.3-5.0) mmol/L Potassium 3.5 (3.5-5.1) mmol/L POC Chloride (101-112) mmol/L Chloride 104 (98-107) mmol/L Carbon Dioxide 25 (21-32) mmol/L POC Total CO2 (24-31) mmol/L Anion Gap 11.0 (3-11) POC Anion Gap (16-25) mmol/L POC BUN (7-18) mg/dl BUN 14 (7-18) mg/dl Creatinine 0.94 (0.6-1.4) mg/dl POC Creatinine (0.6-1.3) mg/dl Est Cr Clr Drug Dosing 92.2 ml/min Est GFR ( Amer) 112.2 ml/min Est GFR (Non-Af Amer) 96.8 ml/min BUN/Creatinine Ratio 14.5 (10-20) Glucose 94 (70-99) mg/dl POC Glucose (other) (70-99) mg/dl Calcium 9.6 (8.5-10.1) mg/dl POC Ioniz Calcium Paloma (1.12-1.32) mmol/l Total Bilirubin 1.5 H (0.2-1) mg/dl AST 66 H (15-37) U/L ALT 56 (12-78) U/L Alkaline Phosphatase 92 (45-117) U/L Troponin I < 0.015 (0-0.045) ng/ml Total Protein 8.7 H (6.4-8.2) gm/dl Albumin 4.2 (3.4-5.0) gm/dl Globulin 4.5 H (2.5-4.0) gm/dl Albumin/Globulin Ratio 0.9 (0.9-2) Lipase 93 (73-393) U/L COVID-19 Eval Order SARS-CoV-2 (PCR) (Negative) Blood Type O Negative Antibody Screen NEGATIVE 04/14/21 04/14/21 04/14/21 Range/Units 16:42 18:14 18:14 WBC (4.8-10.8) K/uL RBC (4.7-6.1) M/uL Hgb (14.0-18.0) g/dL POC Hgb 16.3 (14.0-18.0) g/dl Hct (42-52) % POC Hct 48 (42-52) % MCV (80-100) fL MCH (25-34) pg MCHC (32-36) g/dL RDW Std Deviation (36.4-46.3) fL RDW Coeff of Marguerite (11.5-14.5) % Plt Count (130-400) K/uL MPV (7.4-10.4) fL Immature Gran % (Auto) % Neut % (Auto) % Lymph % (Auto) % Morgan % (Auto) % Eos % (Auto) % Baso % (Auto) % Neut # (Auto) (1.4-6.5) K/uL Lymph # (Auto) (1.2-3.4) K/uL Morgan # (Auto) (0.11-0.59) K/uL Eos # (Auto) (0-0.5) K/uL Baso # (Auto) (0-0.2) K/uL Immature Gran # (Auto) (0.00-0.02) K/uL POC Sodium 143 (135-144) mmol/L Sodium (136-145) mmol/L POC Potassium 3.6 (3.3-5.0) mmol/L Potassium (3.5-5.1) mmol/L POC Chloride 101 (101-112) mmol/L Chloride (98-107) mmol/L Carbon Dioxide (21-32) mmol/L POC Total CO2 22 L (24-31) mmol/L Anion Gap (3-11) POC Anion Gap 24.0 (16-25) mmol/L POC BUN 14 (7-18) mg/dl BUN (7-18) mg/dl Creatinine (0.6-1.4) mg/dl POC Creatinine 0.9 (0.6-1.3) mg/dl Est Cr Clr Drug Dosing ml/min Est GFR ( Amer) ml/min Est GFR (Non-Af Amer) ml/min BUN/Creatinine Ratio (10-20) Glucose (70-99) mg/dl POC Glucose (other) 96 (70-99) mg/dl Calcium (8.5-10.1) mg/dl POC Ioniz Calcium Paloma 1.09 L (1.12-1.32) mmol/l Total Bilirubin (0.2-1) mg/dl AST (15-37) U/L ALT (12-78) U/L Alkaline Phosphatase (45-117) U/L Troponin I (0-0.045) ng/ml Total Protein (6.4-8.2) gm/dl Albumin (3.4-5.0) gm/dl Globulin (2.5-4.0) gm/dl Albumin/Globulin Ratio (0.9-2) Lipase (73-393) U/L COVID-19 Eval Order Covid19 at [facility] SARS-CoV-2 (PCR) NEGATIVE (Negative) Blood Type Antibody Screen Administered Medications Pantoprazole Sodium 40 mg/ (Dextrose) 100 mls @ 20 mls/hr IV Q5H KEMAR Stop: 05/14/21 17:14 Last Admin: 04/14/21 18:11 Dose: 8 mg/hr, 20 mls/hr Documented by: [id number] Octreotide Acetate 500 mcg/ (Sodium Chloride) 105 mls @ 10.5 mls/hr IV .Q10H KEMAR Stop: 05/14/21 17:29 Last Admin: 04/14/21 18:50 Dose: 50 mcg/hr, 10.5 mls/hr Documented by: [id number] Discontinued Medications Al Hydrox/Mg Hydrox/Simethicone (Gi Cocktail Ed Use) 1 dose PO ONE ONE Stop: 04/14/21 18:55 Last Admin: 04/14/21 19:40 Dose: 1 dose Documented by: [id number] Albuterol (Albut/Ipratrop 3mg/0.5mg Neb 3 Ml Vial) 3 ml NEB NOW STA Stop: 04/14/21 19:30 Last Admin: 04/14/21 19:40 Dose: 3 ml Documented by: [id number] Pantoprazole Sodium 80 mg/ (Dextrose) 120 mls @ 400 mls/hr IV NOW ONE Stop: 04/14/21 17:07 Last Infusion: 04/14/21 18:13 Dose: 0 mls/hr Documented by: [id number] Admin: 04/14/21 17:43 Dose: 400 mls/hr Documented by: [id number] Ceftriaxone Sodium (Rocephin) 1,000 mg in 50 mls @ 100 mls/hr IV NOW STA Stop: 04/14/21 17:19 Last Infusion: 04/14/21 18:13 Dose: 0 mls/hr Documented by: [id number] Admin: 04/14/21 17:42 Dose: 100 mls/hr Documented by: [id number] Sodium Chloride (Nss 1000ml) 2,000 mls @ 999 mls/hr IV .Q2H1M ONE Stop: 04/14/21 19:20 Last Infusion: 04/14/21 19:46 Dose: 0 mls/hr Documented by: [id number] Admin: 04/14/21 17:39 Dose: 999 mls/hr Documented by: [id number] Octreotide Acetate 50 mcg/ (Syringe) 10 mls @ 3 mls/min IV ONE STA Stop: 04/14/21 17:23 Last Admin: 04/14/21 18:50 Dose: 3 mls/min Documented by: [id number] Ioversol (Optiray 320 100ml) 94 ml IV ONCE ONE Stop: 04/14/21 17:28 Last Admin: 04/14/21 17:28 Dose: 94 ml Documented by: [id number] Methylprednisolone (Methylprednisolone 40 Mg/Ml Vial) 40 mg IV NOW STA Stop: 04/14/21 18:54 Last Admin: 04/14/21 19:40 Dose: 40 mg Documented by: [id number] Morphine Sulfate (Morphine Sulfate 4 Mg/Ml 1 Ml Carp\Vial) 4 mg IV NOW STA Stop: 04/14/21 17:22 Last Admin: 04/14/21 17:44 Dose: 4 mg Documented by: [id number] Ondansetron HCl (Ondansetron Inj 2 Mg/Ml 2 Ml Vial) 4 mg IV NOW STA Stop: 04/14/21 16:51 Last Admin: 04/14/21 16:56 Dose: 4 mg Documented by: [id number] Ondansetron HCl (Ondansetron Inj 2 Mg/Ml 2 Ml Vial) 4 mg IV NOW STA Stop: 04/14/21 20:04 Last Admin: 04/14/21 20:06 Dose: 4 mg Documented by: [id number] Ondansetron HCl (Ondansetron Inj 2 Mg/Ml 2 Ml Vial) Confirm Administered Dose 4 mg .ROUTE .STK-MED ONE Stop: 04/14/21 20:05 Last Admin: 04/14/21 20:06 Dose: Not Given Documented by: [id number] Imaging Data Radiologist's Impression: Abdomen/Pelvis CT 04/14/21 16:50 CT abd pelvis IV con only CLINICAL HISTORY: abd pain vomiting blood COMPARISON STUDY: None. TECHNIQUE: A dose lowering technique was utilized adhering to the principles of ALARA. CT DOSE: 379.44 mGycm FINDINGS: Lower chest: Limited evaluation of lung bases shows no evidence of acute abnormalities.. Liver: The contrast-enhanced liver is normal in size and contour. Diffuse decrease in attenuation of the hepatic parenchyma is seen without focal lesions or intrahepatic biliary dilatation.. Gallbladder: Unremarkable. Spleen: Normal in size and attenuation. Pancreas: Unremarkable. Adrenal glands: Unremarkable. Kidneys: There is symmetric renal cortical enhancement. The kidneys are normal in size without hydronephrosis. Pelvic viscera: The bladder, and pelvic viscera are unremarkable. Bowel: Small hiatal hernia is seen. Bowel loops are nondilated. Appendix is nondilated. Large bowel is collapsed. Mild diffuse hypoattenuating thickening of the colonic wall might represent sequela from prior inflammatory process. Mild fat stranding is seen surrounding the transverse and proximal descending loop of bowel and might represent inflammatory process/developing colitis. Large amount of stool is seen within rectum. Peritoneum: There is no intraperitoneal free air or abdominal ascites. Vasculature: The abdominal aorta is normal in course and caliber. Incidental findings of left retroaortic renal vein. Adenopathy: None. Skeletal structures: No destructive osseous lesions are seen. IMPRESSION: 1. Collapsed large bowel with fatty prominence of its wall which could represent sequela from prior inflammatory process. Focal areas of surrounding fat stranding is seen at the focal portion of the transverse colon and in proximal aspect of descending colon which might represent developing colitis. 2. Normal appendix. 3. Small hiatal hernia. 4. Hepatic steatosis. 5. The rest of findings as above. ACT 112: Negative or not required by law. The above report was generated using voice recognition software. It may contain grammatical, syntax or spelling errors. Electronically signed by: Jennifer Connolly DO 04/14/2021 5:59 PM Discharge Plan Visit Data Chief Complaint: Vomiting Stated Complaint: VOMITING BLOOD ALL DAY ED Provider: Geovanni Roberts Discharge Problem: Acute upper gastrointestinal bleeding, Alcohol abuse, Leukocytosis Forms Stand Alone Forms: [facility] Prescriptions Prescriptions: No Action omeprazole 40 mg capsule,delayed release(DR/EC) 40 mg PO BID Qty: 180 RF: 3 metoprolol tartrate 25 mg tablet 25 mg PO BID PRN (Reason: palpitations) Qty: 60 RF: 8 albuterol sulfate 90 mcg/actuation HFA aerosol inhaler 2 puff inhalation Q6H PRN (Reason: Shortness Of Breath Or Wheezing) Qty: 18 RF: 3 clonidine HCl 0.1 mg tablet 0.1 mg PO BID Qty: 60 RF: 5 Eliquis 5 mg (74 tabs) tablets,dose pack 5 mg PO BID RF: 0 Chantix Continuing Month Box 1 mg tablet 1 mg PO BID Qty: 56 RF: 5 Anoro Ellipta 62.5-25 mcg/actuation blister with device 1 ea INHALATION DAILY Qty: 60 RF: 11 nicotine (polacrilex) 4 mg lozenge 4 mg buccal Q8H PRN (Reason: nicotine cravings) Qty: 72 RF: 1 multivitamin [One A Day] Tablet 1 tab PO QAM RF: 0 Referrals Referrals: Eddy Wylie DO [Primary Care Provider] - Discharge Problem: Leukocytosis Qualifiers: Leukocytosis type: unspecified Qualified Code(s): D72.829 - Elevated white blood cell count, unspecified
[2021-04-14 17:14] LABS: Albumin Globulin Ratio 0.9 (0.9-2); Alkaline Phosphatase 92 U/L (45-117); Bilirubin,Total 1.5 mg/dl (0.2-1); Globulin 4.5 gm/dl (2.5-4.0); Total Protein 8.7 gm/dl (6.4-8.2); Troponin I < 0.015 ng/ml (0-0.045)
[2021-04-14] MEDS ORDERED: SODIUM CHLORIDE 0.9% 1000ML 2,000 ML IV ONE (17:20)
[2021-04-14] MEDS ORDERED: OCTREOTIDE ACETATE 50 MCG in SYRINGE 9.5 ML IV STA (17:20)
[2021-04-14] MEDS ORDERED: MoRPHine SULFATE 4 MG/ML 1 ML CARP\\VIAL IV STA (17:21)
[2021-04-14] MEDS ORDERED: OPTIRAY 320 100ml IV ONE (17:27)
--- NOTE | 2021-04-14 18:01 | CT Scan Report ---
CT abd pelvis IV con only CLINICAL HISTORY: abd pain vomiting blood COMPARISON STUDY: None. TECHNIQUE: A dose lowering technique was utilized adhering to the principles of ALARA. CT DOSE: 379.44 mGycm FINDINGS: Lower chest: Limited evaluation of lung bases shows no evidence of acute abnormalities.. Liver: The contrast-enhanced liver is normal in size and contour. Diffuse decrease in attenuation of the hepatic parenchyma is seen without focal lesions or intrahepatic biliary dilatation.. Gallbladder: Unremarkable. Spleen: Normal in size and attenuation. Pancreas: Unremarkable. Adrenal glands: Unremarkable. Kidneys: There is symmetric renal cortical enhancement. The kidneys are normal in size without hydron ephrosis. Pelvic viscera: The bladder, and pelvic viscera are unremarkable. Bowel: Small hiatal hernia is seen. Bowel loops are nondilated. Appendix is nondilated. Large bowel i s collapsed. Mild diffuse hypoattenuating thickening of the colonic wall might represent sequela fro m prior inflammatory process. Mild fat stranding is seen surrounding the transverse and proximal desc ending loop of bowel and might represent inflammatory process/developing colitis. Large amount of sto ol is seen within rectum. Peritoneum: There is no intraperitoneal free air or abdominal ascites. Vasculature: The abdominal aorta is normal in course and caliber. Incidental findings of left retroaortic renal vein. Adenopathy: None. Skeletal structures: No destructive osseous lesions are seen. IMPRESSION: 1. Collapsed large bowel with fatty prominence of its wall which could represent sequela from prior inflammatory process. Focal areas of surrounding fat stranding is seen at the focal portion of the tr ansverse colon and in proximal aspect of descending colon which might represent developing colitis. 2. Normal appendix. 3. Small hiatal hernia. 4. Hepatic steatosis. 5. The rest of findings as above. ACT 112: Negative or not required by law. The above report was generated using voice recognition software. It may contain grammatical, syntax o r spelling errors. Electronically signed by: Jennifer Connolly DO 04/14/2021 5:59 PM
[2021-04-14] MEDS: PANTOprazole 40 MG in DEXTROSE 5% 100 ML IV SCH ×2 (18:11→22:55)
[2021-04-14] MEDS: OCTREOTIDE ACETATE 500 MCG in 0.9 % SODIUM CHLORIDE 100 ML IV SCH (18:50)
[2021-04-14] MEDS ORDERED: GI COCKTAIL ED USE PO ONE (18:54)
[2021-04-14] MEDS ORDERED: ALBUT/IPRATROP 3MG/0.5MG NEB 3 ML VIAL NEB STA (19:29)
--- NOTE | 2021-04-14 19:34 | History & Physical Report ---
Date of Service April 14, 2021 Assessment & Plan (1) Hematemesis: Plan: Mr. Quintero is a 45 yo gentleman who presented for evaluation of hematemesis. - Hemodynamically stable - Hgb normal at 15.3. Trend Q4h. Transfuse < 7 - Previously on eliquis, however this was discontinued 72 hours QUANTITATIVE CONSULTANT - Given concurrent liver disease and alcohol use disorder, suspect etiology is esophageal varices - GI consult placed, NPO in the event of possible endoscopy - continue PPI drip and octreotide - avoid NDSAIDs (2) COPD with emphysema: Plan: - diffuse wheezing present on exam - 40mg IV methylprednisolone given in ED - DuoNeb ordered - continue home Anoro inhaler (3) Liver disease, alcoholic: Plan: - hepatic steatosis noted on A/P cat scan - Total bili elevated to 1.5 - AST elevated to 66 - suspect secondary to alcohol, as patient has consumed at least 6 beers per day for the last 20-30 years. Recommend discussion on cessation - MELD score 8 (4) Current smoker: Plan: - recommend cessation - continue home dose varenicline - nicotine patch prn while inpatient (5) GERD (gastroesophageal reflux disease): Plan: - hold home omeprazole on while PPI drip (6) HTN (hypertension): Plan: - hold home metoprolol tartrate and clonidine given acute GI bleed - will order catapres patch to replace clonidine (7) Leukocytosis: Plan: - WBC elevated to 13 - suspect reactive to vomiting - trend CBC (8) Alcohol use disorder: Plan: - 6 beers per day - AWSS protocol ordered with oral ativan Dvt ppx: chemo contraindicated in setting of acute GI bleed Diet: NPO in the event of possible endoscopy Dispo: Med/Surg with tele Code: Full, I discussed with patient History of Present Illness Primary Care Provider: Eddy Wylie, Mr. Quintero is a 45 yo gentleman with a PMHx of alcohol use disorder who presented for evaluation of hematemesis. Mr. Quintero reports at least 8 episodes of vomiting over the past 24 hours- he estimates he threw up ~ 32 ounces of blood. He did vomit once in the emergency department. Of note, he had been on Eliquis for a pulmonary embolism, but this was discont inued [address] Watkins. His PCP sent him to Dr. Watkins for hematologic evaluation - ie because his pulmonary embolism was unexpected. He is not on an anti-platelet agent. He denies any dark, tarry stools. No hematuria, or nosebleeds. He denies any chest pain, but does report being mildly short of breath. No fevers/chills, congestion, diarrhea, urinary symptoms. This is his first time every vomiting blood. He has never had an endoscopy. He denies any sick contacts. Social Hx: He drinks 6 beers per day. He denies ever going into alcohol withdrawal. He is a current, everyday smoker. In the ED, he was afebrile and hemodynamically stable. His Hgb was 15.3. Platelets were WNL. WBC was mildly elevated to 13. Cr at 0.94, BUN at 14. AST at 66, ALT at 56. T bili at 1.5. Lipase not elevated. COVID 19 neg. A cat scan of his abdomen and pelvis showed a possible developing colitis, hepatic steatosis and a small hiatal hernia. He was give a protonix bolus followed by a drip. He was placed on octreotide. He was given a dose of Ceftriaxone, 40mg IV methylprednisone and 4mg of morphine. Allergies Allergy/AdvReac Type Severity Reaction Status Date / Time No Known Allergies Allergy Mild Verified 04/14/21 18:08 Home Medications Medication Instructions Recorded Confirmed Type multivitamin 1 tab PO QAM 07/03/20 04/14/21 History apixaban 5 mg (74 tabs) tablets in 5 mg PO BID ea 10/08/20 04/14/21 History a dose pack (Eliquis) nicotine (polacrilex) 4 mg buccal 4 mg BUCCAL Q8H PRN #72 ea 11/19/20 04/14/21 Rx lozenge clonidine HCl 0.1 mg tablet 0.1 mg PO BID #60 tab 02/04/21 04/14/21 Rx umeclidinium 62.5 mcg-vilanterol 1 ea INHALATION DAILY #60 ea 02/04/21 04/14/21 Rx 25 mcg/actuation powdr for inhalation (Anoro Ellipta) varenicline 1 mg tablet (Chantix 1 mg PO BID #56 tab 02/04/21 04/14/21 Rx Continuing Month Box) albuterol sulfate 90 mcg/actuation 2 puff INHALATION Q6H PRN #18 g 04/05/21 04/14/21 Rx aerosol inhaler metoprolol tartrate 25 mg tablet 25 mg PO BID PRN #60 tab 04/05/21 04/14/21 Rx omeprazole 40 mg capsule,delayed 40 mg PO BID #180 cap 04/05/21 04/14/21 Rx release pantoprazole 40 mg tablet,delayed 40 mg PO BID 30 Days #60 tab 04/15/21 Rx release (Protonix) Past Med/Surg History Medical History (Updated 04/15/21 @ 11:12 by Malathi Carey PA-C) Acute transient psychotic disorder (03/31/11) Acute upper gastrointestinal bleeding Alcohol abuse Alcohol intoxication Bronchitis Closed cervical spine fracture (2011) COPD with emphysema Current smoker GERD (gastroesophageal reflux disease) Hematemesis HTN (hypertension) Labile hypertension Liver disease, alcoholic Pulmonary embolism Sinus headache Wheezy bronchitis Surgical History (Updated 02/04/21 @ 10:39 by KAUSHIK Corbin) History of neck surgery Family History (Updated 02/04/21 @ 10:40 by KAUSHIK Corbin) Aunt Breast cancer Myocardial infarction Uncle Myocardial infarction Brother Myocardial infarction Denies family history of Ovarian cancer Prostate cancer Colorectal cancer Social History (Updated 02/04/21 @ 10:42 by KAUSHIK Corbin) Smoking Status: Current every day smoker Tobacco Type: Cigarettes packs per day: 0.5; Cigarettes Per Day: 10; Hx Alcohol Use: Yes Alcohol type: beer Alcohol Intake Frequency: 2-3 x/Week Hx Substance Use: No Preferred Language: Portuguese Communication Ability: Effective Beliefs That Will Affect Care: None marital status: Current Living Situation: Significant Other current occupational status: employed Feels Safe at Home: Yes caffeine: Yes Dental Care, Regularly: No Physical Activity Frequency: Daily Seatbelt Use: always Sunscreen Use: No Assistive Devices: None Review of Systems Review of Systems: as per HPI Physical Exam Constitutional: WD/WN, vitals as above cooperative and comfortable; no acute distress Eyes: + anicteric sclerae ENMT: external ear and nose normal, oropharynx normal Neck: trachea midline Respiratory: normal respiratory effort; no respiratory distress, no labored breathing, no cough and not tachypneic Auscultation: + wheezes (diffusely throughout lung eli) Cardiovascular: RRR, no murmur, no edema Heart Sounds: normal S1 and normal S2 Extremities: no pedal edema Gastrointestinal (Abdomen): normal bowel sounds, soft, nontender, no hepatosplenomegaly Musculoskeletal: Head/Neck/Chest: normocephalic and head atraumatic Skin: no rashes, warm and dry Neurologic: moves all extremities Psychiatric: A+Ox3, euthymic affect Results & Data Results & Data ([facility]) Vital Signs (Past 12 Hours) Vital Signs Temp Pulse Pulse Resp BP BP Pulse Ox 04/14/21 18:00 80 16 161/105 H 98 04/14/21 17:06 82 16 145/94 H 96 04/14/21 16:42 99 04/14/21 16:20 75 16 155/101 H 99 04/14/21 16:17 36.1 C L 83 20 149/93 H 98 Supervising Physician Co-Signing Physician Notes Attending addendum: I have physically seen this patient, have supervised the medical residents activities, and agree with the H&P unless as otherwise noted. Assessment and Plan: Hematemesis- Hemoglobin normal at 15.3 upon admission H&H's every 4 hours Previously on Eliquis, which has been discontinued 3 days ago, continue to hold NPO Consult gastroenterology PPI drip and octreotide started in ED due to concern regarding possible variceal bleeding due to alcoholic history Alcoholic liver disease//hepatic steatosis- Meld score 8 Follow labs serially COPD exacerbation- Duonebs every 4 hours while awake and every 2 hours when necessary. Methylprednisolone 40 mg IV every 8 hours Azithromycin 500 mg IV daily Remaining orders and notations as noted Resident Activity Tracking Resident Involvement: Resident Care Provided Care Provided: Adult Hospital Medicine
[2021-04-14] MEDS ORDERED: ONDANSETRON INJ 2 MG/ML 2 ML VIAL ONE (20:04)
[2021-04-14] MEDS ORDERED: LORazepam 1 MG TAB PO PRN ×2 (22:03)
[2021-04-14] MEDS ORDERED: ALBUTEROL HFA 8 GM INHALER INH PRN (22:03)
[2021-04-14] MEDS ORDERED: cloNIDine HCL 0.1 MG/24 HR TRANSDERM SYS TD SCH (22:30)
[2021-04-14] MEDS: NSS + 20MEQ KCL 20 MEQ/1,000 ML BAG IV SCH (22:55)
[2021-04-14] MEDS: VARENICLINE 1 MG TAB PO SCH (22:57)
[2021-04-14 23:33] LABS: Hematocrit (blood only) 42.5 % (42-52); Hemoglobin 14.6 g/dL (14.0-18.0)
[2021-04-14 23:42] LABS: Prothrombin Time 10.2 Seconds (9.0-12.0)
[2021-04-15] MEDS: CHECK CLONIDINE PATCH PLACEMENT SCH ×3 (01:02→16:04)
[2021-04-15] MEDS: OCTREOTIDE ACETATE 500 MCG in 0.9 % SODIUM CHLORIDE 100 ML IV SCH ×2 (03:37→15:53)
[2021-04-15] MEDS: PANTOprazole 40 MG in DEXTROSE 5% 100 ML IV SCH ×4 (03:37→21:14)
[2021-04-15 04:19] LABS: Appearance Urine Clear (Clear); Bacteria Urine Automated Negative (Negative); Bilirubin Urine Negative (Negative); Blood Urine Negative (Negative); Color Urine Dark Yellow; Glucose Urine UA Negative (Negative); Ketones Urine 3+ (Negative); Leukocyte Esterase Urine Negative (Negative); Nitrite Urine Negative (Negative); Protein Urine 1+ (Negative); RBC Urine Automated 0-4 /hpf (0-4); Specific Gravity Urine > 1.045 (1.000-1.030); Urobilinogen Urine Negative (Negative)
[2021-04-15] MEDS ORDERED: MoRPHine SULFATE 2 MG/ML CARP IV STA (05:50)
[2021-04-15 06:04] LABS: Basophils # (auto) 0.01 K/uL (0-0.2); Basophils % (auto) 0.1 %; Hematocrit (blood only) 40.5 % (42-52); Hemoglobin 13.7 g/dL (14.0-18.0); Immature Granulocytes # (auto) 0.05 K/uL (0.00-0.02); Immature Granulocytes % (auto) 0.3 %; Lymphocytes # (auto) 0.52 K/uL (1.2-3.4); Lymphocytes % (auto) 3.4 %; Mean Corpuscular Hemoglobin 33.7 pg (25-34); Mean Corpuscular Hgb Conc 33.8 g/dL (32-36); Mean Corpuscular Volume 99.8 fL (80-100); Monocytes # (auto) 0.29 K/uL (0.11-0.59); Monocytes % (auto) 1.9 %; Neutrophils # (auto) 14.52 K/uL (1.4-6.5); Neutrophils % (auto) 94.3 %; Platelet Count 241 K/uL (130-400); RDW Coefficient of Variation 13.2 % (11.5-14.5); RDW Standard Deviation 47.9 fL (36.4-46.3); Red Blood Count 4.06 M/uL (4.7-6.1); White Blood Count 15.39 K/uL (4.8-10.8)
[2021-04-15] MEDS: NSS + 20MEQ KCL 20 MEQ/1,000 ML BAG IV SCH (06:06)
[2021-04-15 06:42] LABS: Albumin Globulin Ratio 0.8 (0.9-2); BUN Creatinine Ratio 16.4 (10-20); Bilirubin,Total 1.5 mg/dl (0.2-1); Calcium 7.9 mg/dl (8.5-10.1); Creatinine Clr Calc Pharmacy 91.9 ml/min; Est GFR (African American) 112.2 ml/min; Est GFR (Non-African American) 96.8 ml/min; Globulin 3.8 gm/dl (2.5-4.0); Potassium 4.7 mmol/L (3.5-5.1); Total Protein 6.8 gm/dl (6.4-8.2)
[2021-04-15] MEDS: UMECLIDINIUM/VILANTEROL 62.5/25MCG 7 PUFFS/INHALER INH SCH (08:23)
--- NOTE | 2021-04-15 10:17 | Gastrointestinal Consultation ---
Date of Consultation April 15, 2021 Assessment & Plan (1) Hematemesis: -Keep NPO for EGD today -Continue Protonix gtt -Continue to monitor H/H -Further recommendations pending results of testing (2) Abnormal CT scan, colon: -If patient develops diarrhea, consider stool studies -Continue to monitor symptoms, suspect viral given nausea & vomiting as well Supervising Physician Co-Signing Physician Notes I personally evaluated the patient and agree with the findings as documented by Malathi Carey, PAC Exam: abd: soft, nt, nd Proceed with EGD. History of Present Illness Attending Physician: Geovanni Dumas DO History of Present Illness Patient is a 45 yo male with a PMH of alcohol abuse, tobacco abuse, DVT & PE, GERD, COPD, & HTN. Patient notes that he has been experiencing nausea & vomiting for 24 hours prior to presenting to the ER. The patient notes that yesterday he began experiencing hematemesis. Patient notes he had been on Eliquis for a PE but this was discontinued 4 days ago. He reports worsening acid reflux. He denies melena. He drinks 6-10 alcohol beverages daily x 20 years. He is a daily smoker. He denies a history of endoscopy. He does not use NSAIDs. H/H is 13.7/40.5. WBC 15,390. A CT scan of the abdomen/pelvis indicated fatty liver, and questioned a developing colitis. Patient denies diarrhea or lower abdominal cramping. No pertinent family history. Cr at 0.94, BUN at 14. AST at 66, ALT at 56. T bili at 1.5. Lipase not elevated. COVID 19 neg. He was given a Protonix bolus followed by a drip in the ED. He was placed on octreotide. He is NPO. Allergies Allergy/AdvReac Type Severity Reaction Status Date / Time No Known Allergies Allergy Mild Verified 04/14/21 18:08 Home Medications Medication Instructions Recorded Confirmed Type multivitamin 1 tab PO QAM 07/03/20 04/14/21 History apixaban 5 mg (74 tabs) tablets in 5 mg PO BID ea 10/08/20 04/14/21 History a dose pack (Eliquis) nicotine (polacrilex) 4 mg buccal 4 mg BUCCAL Q8H PRN #72 ea 11/19/20 04/14/21 Rx lozenge clonidine HCl 0.1 mg tablet 0.1 mg PO BID #60 tab 02/04/21 04/14/21 Rx umeclidinium 62.5 mcg-vilanterol 1 ea INHALATION DAILY #60 ea 02/04/21 04/14/21 Rx 25 mcg/actuation powdr for inhalation (Anoro Ellipta) varenicline 1 mg tablet (Chantix 1 mg PO BID #56 tab 02/04/21 04/14/21 Rx Continuing Month Box) albuterol sulfate 90 mcg/actuation 2 puff INHALATION Q6H PRN #18 g 04/05/21 04/14/21 Rx aerosol inhaler metoprolol tartrate 25 mg tablet 25 mg PO BID PRN #60 tab 04/05/21 04/14/21 Rx omeprazole 40 mg capsule,delayed 40 mg PO BID #180 cap 04/05/21 04/14/21 Rx release Patient History Medical History (Updated 04/15/21 @ 11:12 by Malathi Carey PA-C) Acute transient psychotic disorder (03/31/11) Acute upper gastrointestinal bleeding Alcohol abuse Alcohol intoxication Bronchitis Closed cervical spine fracture (2011) COPD with emphysema Current smoker GERD (gastroesophageal reflux disease) Hematemesis HTN (hypertension) Labile hypertension Liver disease, alcoholic Pulmonary embolism Sinus headache Wheezy bronchitis Surgical History (Updated 02/04/21 @ 10:39 by KAUSHIK Corbin) History of neck surgery Family History (Updated 02/04/21 @ 10:40 by KAUSHIK Corbin) Aunt Breast cancer Myocardial infarction Uncle Myocardial infarction Brother Myocardial infarction Denies family history of Ovarian cancer Prostate cancer Colorectal cancer Social History (Updated 02/04/21 @ 10:42 by KAUSHIK Corbin) Smoking Status: Current every day smoker Tobacco Type: Cigarettes packs per day: 0.5; Cigarettes Per Day: 10; Hx Alcohol Use: Yes Alcohol type: beer Alcohol Intake Frequency: 2-3 x/Week Hx Substance Use: No Preferred Language: Urdu Communication Ability: Effective Beliefs That Will Affect Care: None marital status: Current Living Situation: Significant Other current occupational status: employed Feels Safe at Home: Yes caffeine: Yes Dental Care, Regularly: No Physical Activity Frequency: Daily Seatbelt Use: always Sunscreen Use: No Assistive Devices: None Review of Systems Constitutional: no fever and no chills Respiratory: no cough and no dyspnea Cardiovascular: no chest pain Gastrointestinal: + abdominal pain, + heartburn, + nausea, + vomiting and + hematemesis Musculoskeletal: no problem reported Psychiatric: + substance abuse Physical Exam Constitutional: WD/WN, vitals as above Respiratory: normal respiratory effort, lungs clear to auscultation Cardiovascular: RRR, no murmur, no edema Gastrointestinal (Abdomen): Inspection/Auscultation: abdomen normal to inspection and normal bowel sounds Percussion/Palpation: + abdomen tender and abdomen soft Musculoskeletal: Head/Neck/Chest: normocephalic Psychiatric: Orientation: alert and oriented x 3 Results & Data ([facility]) Vital Signs (Past 12 Hours) Vital Signs Temp Pulse Pulse Resp BP BP Pulse Ox 04/15/21 09:53 66 04/15/21 07:52 36.7 C 69 18 130/81 96 04/15/21 04:00 37.3 C 71 18 115/66 93 04/15/21 00:34 76 04/14/21 22:12 37.5 C 87 16 155/88 H 94 PG Care Time/CCT Total # of Minutes Spent Total Time Spent with Patient: Total time spent is greater than 50% in coordination of care (as documented) at patient's floor/unit and/or counseling patient: Coding Level of Care Code 52779 Inpt Consult Level 4 Diagnoses Hematemesis K92.[address] scan, colon R93.3
--- NOTE | 2021-04-15 10:56 | Anesthesiology Consultation ---
Date of Service April 15, 2021 Assessment & Plan (1) Encounter for pre-operative examination: Chart Review Chart Review: Acceptable Risk for Surgery, Patient NOT seen in Pre Admission Testing and entry level sales consultant initiated Consults Requested none Proposed Anesthesia Risk / Benefits Reviewed With: PT / POA / Parent / Guardian, Accepts Plan and Informed Consent Obtained History Surgery Operation Date: 04/15/21 16:45 Proposed Procedures p Esophagogastroduodenoscopy Dr. Damian - Juan Damian MD Height/Weight Height: 5 ft 10 in Weight: 66.2 kg Allergies Allergy/AdvReac Type Severity Reaction Status Date / Time No Known Allergies Allergy Mild Verified 04/14/21 18:08 Medications Home Medications Medication Instructions Recorded Confirmed Last Taken multivitamin 1 tab PO QAM 07/03/20 04/14/21 04/13/21 apixaban 5 mg (74 tabs) tablets in 5 mg PO BID ea 10/08/20 04/14/21 04/13/21 a dose pack (Eliquis) nicotine (polacrilex) 4 mg buccal 4 mg BUCCAL Q8H PRN #72 ea 11/19/20 04/14/21 Unknown lozenge clonidine HCl 0.1 mg tablet 0.1 mg PO BID #60 tab 02/04/21 04/14/21 04/13/21 umeclidinium 62.5 mcg-vilanterol 1 ea INHALATION DAILY #60 ea 02/04/21 04/14/21 04/13/21 25 mcg/actuation powdr for inhalation (Anoro Ellipta) varenicline 1 mg tablet (Chantix 1 mg PO BID #56 tab 02/04/21 04/14/21 04/13/21 Continuing Month Box) albuterol sulfate 90 mcg/actuation 2 puff INHALATION Q6H PRN #18 g 04/05/21 04/14/21 Unknown aerosol inhaler metoprolol tartrate 25 mg tablet 25 mg PO BID PRN #60 tab 04/05/21 04/14/21 Unknown omeprazole 40 mg capsule,delayed 40 mg PO BID #180 cap 04/05/21 04/14/21 04/13/21 release Active Medications Generic Name Dose Route Start Last Admin Trade Name Freq PRN Reason Stop Dose Admin Clonidine HCl 1 patch 04/14/21 22:30 04/14/21 22:56 Clonidine Hcl 0.1 Mg/24 Hr Transderm Sys TD 05/14/21 22:29 1 patch Q7D KEMAR Administration Pantoprazole Sodium 40 mg/ 100 mls @ 20 mls/hr 04/14/21 17:15 04/15/21 08:28 Dextrose IV 05/14/21 17:14 8 mg/hr Q5H KEMAR 20 mls/hr Administration 8 MG/HR Octreotide Acetate 500 mcg/ 105 mls @ 10.5 mls/hr 04/14/21 17:30 04/15/21 03:37 Sodium Chloride IV 05/14/21 17:29 50 mcg/hr .Q10H KEMAR 10.5 mls/hr Administration 50 MCG/HR Potassium Chloride/Sodium Chloride 20 meq in 1,000 mls @ 125 mls/hr 04/14/21 22:30 04/15/21 06:06 Normal Saline W/20 Meq Kcl IV 04/15/21 14:29 125 mls/hr .Q8H KEMAR Administration Miscellaneous 1 ea 04/14/21 22:29 04/14/21 22:56 Remove Clonidine Patch N/A 05/14/21 22:28 1 ea CQWK KEMAR Administration Miscellaneous 1 ea 04/15/21 00:00 04/15/21 08:25 Check Clonidine Patch Placement N/A 05/15/21 00:00 1 ea QS KEMAR Administration Umeclidinium/Vilanterol 1 puffs 04/15/21 09:00 04/15/21 08:23 Umeclidinium/Vilanterol 62.5/25mcg 7 Puffs/Inhaler INH 05/15/21 08:59 1 puffs DAILY KEMAR Administration Varenicline 1 mg 04/14/21 23:00 04/14/21 22:57 Varenicline 1 Mg Tab PO 05/14/21 22:59 Not Given BID KEMAR Past Medical History Medical History (Updated 04/15/21 @ 11:01 by Leobardo Rodriguez MD) Acute transient psychotic disorder (03/31/11) Acute upper gastrointestinal bleeding Alcohol abuse Alcohol intoxication Bronchitis Closed cervical spine fracture (2011) COPD with emphysema Current smoker GERD (gastroesophageal reflux disease) Hematemesis HTN (hypertension) Labile hypertension Liver disease, alcoholic Pulmonary embolism Sinus headache Wheezy bronchitis Past Family History Family History (Updated 02/04/21 @ 10:40 by KAUSHIK Corbin) Aunt Breast cancer Myocardial infarction Uncle Myocardial infarction Brother Myocardial infarction Denies family history of Ovarian cancer Prostate cancer Colorectal cancer Past Surgical History Surgical History (Updated 02/04/21 @ 10:39 by KAUSHIK Corbin) History of neck surgery Social History Smoking Status: Current every day smoker tobacco type: cigarettes Smoking cigarettes per day: 10 Hx Alcohol Use: Yes Alcohol type: beer alcohol intake frequency: 3 or more drinks per day Hx Substance Use: No Physical Exam Vital Signs Last Vital Signs Temp 36.7 C 04/15/21 07:52 Pulse 66 04/15/21 09:53 Resp 18 04/15/21 07:52 BP 130/81 04/15/21 07:52 Pulse Ox 96 04/15/21 07:52 Testing Laboratory Results 04/15/21 05:42 04/15/21 05:42 PT 10.2 Seconds (9.0-12.0) 04/14/21 23:19 INR 1.0 (0.9-1.1) 04/14/21 23:19 Urine Color Dark Yellow 04/15/21 04:01 Urine Appearance Clear (Clear) 04/15/21 04:01 Urine pH 7.0 (4.5-7.5) 04/15/21 04:01 Ur Specific [place] > 1.045 (1.000-1.030) H 04/15/21 04:01 Urine Protein 1+ (Negative) H 04/15/21 04:01 Urine Glucose (UA) Negative (Negative) 04/15/21 04:01 Urine Ketones 3+ (Negative) H 04/15/21 04:01 Urine Nitrite Negative (Negative) 04/15/21 04:01 Ur Leukocyte Esterase Negative (Negative) 04/15/21 04:01 Urine WBC (Auto) 1-5 /hpf (0-5) 04/15/21 04:01 Urine RBC (Auto) 0-4 /hpf (0-4) 04/15/21 04:01 U Hyaline Cast (Auto) 1-5 /lpf (0-5) 04/15/21 04:01 U Epithel Cells (Auto) 5-10 /lpf (0-5) H 04/15/21 04:01 Urine Bacteria (Auto) Negative (Negative) 04/15/21 04:01 Blood Type O Negative 04/14/21 16:32 Antibody Screen NEGATIVE 04/14/21 16:32 Electrocardiogram Date: 04/14/2114-Apr-2021 16:35:21 [facility]-EDSTAT ROUTINE RETRIEVAL Normal sinus rhythm Normal ECG When compared with ECG of 03-JUL-2020 11:36, Nonspecific T wave abnormality now evident in Anterior leads
[2021-04-15] MEDS ORDERED: LIDOCAINE 2% 2 ML VIAL/AMP(20MG/ML) INFIL ONE (12:35)
[2021-04-15] MEDS ORDERED: PROPOFOL IV EMULSION 10 MG/ML 20 ML VIAL IV ONE (12:35)
--- NOTE | 2021-04-15 12:53 | Procedure Note ---
Procedure Note Date of Service April 15, 2021 Note GI brief procedure note EGD findings: LA Grade C esophagitis, gastrititis, no bleeding nor varices noted. biopsies taken. Recs: protonix 40 mg BID for 3 months then daily thereafter diet as tolerated repeat EGD in 3 months supportive care f/u path results rest as per primary team Juan Damian MD Gastroenterology Coding
--- NOTE | 2021-04-15 13:07 | GI REPORT ---
Patient Name: Gerry Quintero Procedure Date: 04/15/2021 12:25 PM Date of : 1975 Admit Type: Inpatient Age: 45 Gender: Male Attending MD: Juan Damian MD Procedure: Upper GI endoscopy Providers: Juan Damian MD Referring MD: Annalisa Diaz Indications: Hematemesis Medicines: Monitored Anesthesia Care Complications: No immediate complications. Estimated blood loss: None. Estimated Blood Loss: Estimated blood loss: none. Procedure: Pre-Anesthesia Assessment: - Prior Anticoagulants: The patient has taken no previous anticoagulant or antiplatelet agents. - ASA Grade Assessment: II - A patient with mild systemic disease. After obtaining informed consent, the endoscope was passed under direct vision. Throughout the procedure, the patient's blood pressure, pulse, and oxygen saturations were monitored continuously. The Scope was introduced through the mouth, and advanced to the second part of duodenum. The upper GI endoscopy was accomplished without difficulty. The patient tolerated the procedure well. Findings: LA Grade C (one or more mucosal breaks continuous between tops of 2 or more mucosal folds, less than 75% circumference) esophagitis with no bleeding was found. Estimated blood loss: none. Diffuse mild inflammation characterized by erythema was found in the stomach. Biopsies were taken with a cold forceps for Helicobacter pylori testing. Estimated blood loss: none. No evidence of varices throughout entire exam The duodenal bulb and second portion of the duodenum were normal. Impression: - LA Grade C reflux esophagitis. - Gastritis. Biopsied. - Normal duodenal bulb and second portion of the duodenum. Recommendation: - Resume previous diet today. - Await pathology results. -protonix 40 mg BID for 3 months, then daily thereafter -repeat EGD in 3 months to reassess - [facility]. Juan Damian MD 04/15/2021 1:07:32 PM This report has been signed electronically. Note Initiated On: 04/15/2021 12:25 PM Number of Addenda: 0 I attest to the content of the Intraoperative Record and orders documented therein, exceptions below {[id number]}
--- NOTE | 2021-04-15 13:59 | Anesthesiology Progress Note ---
Date of Service April 15, 2021 Anesthesia Post Procedure Vital Signs Vital Signs: Temp Pulse Pulse Pulse Resp BP BP 04/15/21 13:09 62 20 04/15/21 12:54 62 20 04/15/21 12:39 96 H 20 04/15/21 11:31 37.4 C 60 16 04/15/21 09:53 66 04/15/21 07:52 36.7 C 69 18 04/15/21 04:00 37.3 C 71 18 04/15/21 00:34 76 04/14/21 22:12 37.5 C 87 16 155/88 H 04/14/21 21:00 86 18 135/89 04/14/21 20:30 93 H 20 04/14/21 20:01 107 H 19 04/14/21 19:43 80 20 04/14/21 19:30 90 26 H 152/93 H 04/14/21 19:00 81 18 167/104 H 04/14/21 18:30 85 24 161/105 H 04/14/21 18:00 84 80 16 152/101 H 161/105 H 04/14/21 17:36 68 04/14/21 17:06 82 16 145/94 H 04/14/21 16:42 04/14/21 16:30 72 19 155/101 H 04/14/21 16:20 75 16 155/101 H 04/14/21 16:17 36.1 C L 83 20 149/93 H BP Pulse Ox 04/15/21 13:09 118/83 95 04/15/21 12:54 106/75 96 04/15/21 12:39 111/80 97 04/15/21 11:31 125/78 96 04/15/21 09:53 04/15/21 07:52 130/81 96 04/15/21 04:00 115/66 93 04/15/21 00:34 04/14/21 22:12 94 04/14/21 21:00 97 04/14/21 20:30 04/14/21 20:01 93 04/14/21 19:43 99 04/14/21 19:30 100 04/14/21 19:00 98 04/14/21 18:30 100 04/14/21 18:00 97 04/14/21 17:36 04/14/21 17:06 96 04/14/21 16:42 99 04/14/21 16:30 95 04/14/21 16:20 99 04/14/21 16:17 98 Pain Intensity Abdomen: Pain Intensity: 5 Transfer of Care Handoff Completed per policy Notes Mental Status: alert / awake / arousable and participated in evaluation Patient Amnestic to Procedure: Yes Nausea / Vomiting: adequately controlled Pain: adequately controlled Airway Patency, RR, SpO2: stable & adequate BP & HR: stable & adequate Hydration State: stable & adequate Anesthetic Complications: no major complications apparent and Pt Satisfied with anesthetic care
[2021-04-15] MEDS: VARENICLINE 1 MG TAB PO SCH ×2 (14:01→19:57)
--- NOTE | 2021-04-15 15:29 | Hospitalist Progress Note ---
Date of Service April 15, 2021 Assessment & Plan (1) Hematemesis: Plan: Mr. Quintero is a 45 yo M PMH of COPD, previous PE, significant alcohol and tobacco use who presented for evaluation of hematemesis 8x episodes - Differential included bleeding GI ulcer, esophageal varices, esophagitis, Silvia-Fraga tear - Hemodynamically stable, Hgb on admission of 14.6, currently 13.7, no transfusions required. Transfuse if Hgb < 7 - Eliquis discontinued on admission due to acute blood loss - EGD 04/15- LA-C esophagitis, started Protonix 40 mg BID, recommended repeat EGD in 3 months with GI - Continue PPI drip, added Famotidine 20 mg IV - Discontinued octreotide and ceftriaxone due to lack of varices on EGD, no evidence of cirrhosis on imaging or exam, low suspicion for development of spontaneous bacterial peritonitis - PRN Zofran, Sucralfate - Pt currently stable, will likely be discharged in AM if tolerating breakfast without emesis (2) COPD with emphysema: Plan: - 40mg IV methylprednisolone given in ED - Albuterol PRN - Continue home Anoro inhaler (3) Liver disease, alcoholic: Plan: - Hepatic steatosis noted on CTAP but exam non-concerning for cirrhosis at this time - MELD score 8 (4) Current smoker: Plan: - Briefly discussed smoking cessation with patient, currently in contemplative stage - Continue home varenicline - Nicotine patch PRN (5) GERD (gastroesophageal reflux disease): Plan: -PPI drip -Holding home omeprazole (6) HTN (hypertension): Plan: - Held home metoprolol tartrate and clonidine on admission given acute blood loss - Catapres patch to replace clonidine (7) Leukocytosis: Plan: - WBC elevated at 15.39, likely reactive to vomiting and not acute infectious etiology - trend CBC (8) Alcohol use disorder: Plan: - 6 beers per day - AWSS protocol ordered with oral ativan Dvt ppx: low-risk Diet: Regular Dispo: Home tomorrow AM if tolerating breakfast Code: Full Admission and Anticipated Discharge Date Admission Date: April 14, 2021 Supervising Physician Co-Signing Physician Notes I personally examined the patient and verified all jesus points of history and exam, discussed case, and agree with decision making with Dr Jones. Feeling okay post EGD. Unfortunately vomited later whenever he tried to eat. No other new complaints. No further bleeding. Vitals noted, in general he is awake and alert pleasant no distress. HEENT normocephalic atraumatic mucous membranes moist. Breathing unlabored no acce ssory muscle use good effort. Skin shows no rashes no pallor or icterus. Neuro without focal deficits. Esophagitis/upper GI bleedingfortunately not much of any acute blood loss anemia of significance. EGD noted, input appreciated. Discussed alcohol cessation. His last drink was several days ago. Protonix 40 mg twice daily for now. Additional supportive care given that he had ongoing vomiting. Alcohol abuselast drink was about 3 days ago, fortunately no signs or symptoms of withdrawal. Discussed the direct relationship of drinking with esophagitis, also discussed that he appears to have alcoholic steatohepatitis, which runs the risk of progression to cirrhosis. He expressed good understanding of this, it seems that he drinks more out of habit and stress reliefto that end we di scussed other stress relief techniques and the ideal of quitting versus potentially a more rational (for him) dramatic cutting back with close follow- up. Alcoholic steatohepatitissee above. Definitely continue to follow LFTs as an outpatient. We discussed absolute cessation would be the best, but if he were to cut back instead, would definitely want serial labs to ensure that the steatohepatitis picture appears to be improving. Leukocytosisnonspecific, no overt infections. Otherwise as above. Subjective Pt denied acute complaints in morning, did not have any emesis on floor. Denies abdominal pain, nausea, heartburn, chest pain or dyspnea. Later in afternoon after EGD, pt reportedly vomited once again immediately after trying to eat lunch, though non-bloody. Review of Systems Review of Systems: All systems reviewed & are unremarkable except as noted in Subjective Cardiovascular: no chest pain Gastrointestinal: + nausea and + vomiting Psychiatric: + substance abuse Physical Exam Constitutional: WD/WN, vitals as above cooperative and comfortable; no acute distress Eyes: + anicteric sclerae ENMT: external ear and nose normal, oropharynx normal Mouth: + dentition abnormality (Missing) and + chipped teeth; no loose teeth Mallampati Class: II Neck: trachea midline Respiratory: normal respiratory effort, lungs clear to auscultation normal respiratory effort; no respiratory distress, no labored breathing, no cough and not tachypneic Auscultation: + wheezes (diffusely throughout lung eli) Cardiovascular: RRR, no murmur, no edema Rate/Rhythm: regular rate and regular rhythm Heart Sounds: normal S1 and normal S2 Extremities: no pedal edema Gastrointestinal (Abdomen): normal bowel sounds, soft, nontender, no hepatosplenomegaly Inspection/Auscultation: abdomen normal to inspection and normal bowel sounds Percussion/Palpation: + abdomen tender and abdomen soft Musculoskeletal: Head/Neck/Chest: normocephalic and head atraumatic Skin: no rashes, warm and dry Neurologic: moves all extremities Psychiatric: A+Ox3, euthymic affect Orientation: alert and oriented x 3 Results & Data Results & Data ([facility]) Vital Signs (Past 12 Hours) Vital Signs Temp Pulse Pulse Pulse Resp BP BP 04/15/21 15:10 36.5 C 99 H 16 143/88 H 04/15/21 14:13 37.4 C 80 62 20 155/88 H 118/83 04/15/21 13:09 62 20 118/83 04/15/21 12:54 62 20 106/75 04/15/21 12:39 96 H 20 111/80 04/15/21 11:31 37.4 C 60 16 125/78 04/15/21 09:53 66 04/15/21 07:52 36.7 C 69 18 130/81 04/15/21 04:00 37.3 C 71 18 115/66 Pulse Ox 04/15/21 15:10 95 04/15/21 14:13 95 04/15/21 13:09 95 04/15/21 12:54 96 04/15/21 12:39 97 04/15/21 11:31 96 04/15/21 09:53 04/15/21 07:52 96 04/15/21 04:00 93 Resident Activity Tracking Resident Involvement: Resident Care Provided Care Provided: Adult Hospital Medicine
[2021-04-15] MEDS ORDERED: FAMOTIDINE 20 MG in SYRINGE 3 ML IV ONE (15:30)
[2021-04-15] MEDS ORDERED: ALUMINUM/MAGNESIUM/SIMETH (MAALOX MAX) 30 ML UDC PO STA (15:34)
[2021-04-15] MEDS ORDERED: ondansetron HCL 8 MG in DEXTROSE 5% 50 ML IV ONE (15:35)
[2021-04-15] MEDS ORDERED: cefTRIAXone SODIUM 1,000 MG in DEXTROSE 5% 50 ML IV SCH (17:00)
--- NOTE | 2021-04-15 18:34 | Billing Data ---
Date of Service April 15, 2021 Coding Level of Care Code 84310 Subseq Hosp Care Lvl 3
--- NOTE | 2021-04-15 18:35 | Billing Data ---
Date of Service April 15, 2021 Coding Level of Care Code 81966 Subseq Hosp Care Lvl 3
[2021-04-16] MEDS: CHECK CLONIDINE PATCH PLACEMENT SCH ×4 (00:05→22:57)
[2021-04-16] MEDS: PANTOprazole 40 MG in DEXTROSE 5% 100 ML IV SCH ×6 (02:19→22:57)
--- NOTE | 2021-04-16 05:33 | Billing Data ---
Date of Service April 16, 2021 Coding Level of Care Code 72474 Initial Inpt Care Lvl 3
--- NOTE | 2021-04-16 06:19 | Electrocardiogram Report ---
Test Reason : Blood Pressure : / mmHG Vent. Rate : 070 BPM Atrial Rate : 070 BPM P-R Int : 122 ms QRS Dur : 086 ms QT Int : 402 ms P-R-T Axes : 064 068 060 degrees QTc Int : 434 ms Normal sinus rhythm Normal ECG When compared with ECG of 03-JUL-2020 11:36, T wave amplitude has decreased in Anterior leads Confirmed by Charly Chambers ([id number] on 04/16/2021 6:19:05 AM Referred By: REFERRED SELF Confirmed By:Charly Chambers
[2021-04-16 06:26] LABS: Hematocrit (blood only) 38.7 % (42-52); Hemoglobin 12.7 g/dL (14.0-18.0); Mean Corpuscular Hemoglobin 32.7 pg (25-34); Mean Corpuscular Hgb Conc 32.8 g/dL (32-36); Mean Corpuscular Volume 99.7 fL (80-100); Platelet Count 213 K/uL (130-400); RDW Standard Deviation 47.4 fL (36.4-46.3); Red Blood Count 3.88 M/uL (4.7-6.1); White Blood Count 10.13 K/uL (4.8-10.8)
[2021-04-16 07:05] LABS: Albumin Level 2.9 gm/dl (3.4-5.0); BUN Creatinine Ratio 22.3 (10-20); Calcium 8.1 mg/dl (8.5-10.1); Creatinine Clr Calc Pharmacy 104.9 ml/min; Est GFR (African American) 121.1 ml/min; Est GFR (Non-African American) 104.5 ml/min; Potassium 4.3 mmol/L (3.5-5.1)
[2021-04-16 07:08] LABS: Albumin Globulin Ratio 0.8 (0.9-2); Bilirubin,Total 1.1 mg/dl (0.2-1); Globulin 3.6 gm/dl (2.5-4.0); Total Protein 6.5 gm/dl (6.4-8.2)
[2021-04-16] MEDS: VARENICLINE 1 MG TAB PO SCH ×2 (08:08→20:09)
[2021-04-16] MEDS: UMECLIDINIUM/VILANTEROL 62.5/25MCG 7 PUFFS/INHALER INH SCH (08:08)
[2021-04-16] MEDS: ACETAMINOPHEN 1,000 MG/100 ML VIAL IV PRN ×2 (08:09→20:09)
[2021-04-16] MEDS: ONDANSETRON INJ 2 MG/ML 2 ML VIAL IV PRN ×2 (08:38→17:58)
[2021-04-16] MEDS: ALUMINUM/MAGNESIUM/SIMETH (MAALOX MAX) 30 ML UDC PO PRN (17:09)
--- NOTE | 2021-04-16 17:40 | Hospitalist Progress Note ---
Date of Service April 16, 2021 Assessment & Plan (1) Hematemesis: Plan: Mr. Quintero is a 45 yo M PMH of COPD, previous PE, significant alcohol and tobacco use who presented for evaluation of hematemesis 8x episodes - EGD 04/15 showed LA grade C esophagitis, started on Protonix 40 mg BID, recommended repeat EGD in 3 months with GI - pt failed tolerating breakfast, as well as lunch (cramping pain, nausea) - Mylanta before meals - PPI drip - added Pepcid BID yulissa - PRN Zofran - Pt currently stable, will attempt another trial of breakfast tomorrow, possibly lunch (2) COPD with emphysema: Plan: - 40mg IV methylprednisolone given in ED - Albuterol PRN - Continue home Anoro inhaler (3) Current smoker: Plan: - Briefly discussed smoking cessation with patient, currently in contemplative stage - Continue home varenicline - Nicotine patch PRN (4) Liver disease, alcoholic: Plan: - Hepatic steatosis noted on CTAP but exam non-concerning for cirrhosis at this time - MELD score 8 (5) GERD (gastroesophageal reflux disease): Plan: -PPI drip -adding Pepcid BID yulissa, plus Mylanta before meals to reduce GI irritation (6) HTN (hypertension): Plan: - Held home metoprolol tartrate and clonidine on admission given acute blood loss - Catapres patch to replace clonidine (7) Leukocytosis: Plan: - WBC down to 10.13 from 15 yesterday. likely resolving - trend CBC (8) Alcohol use disorder: Plan: - 6 beers per day - AWSS protocol ordered with oral ativan Dvt ppx: low-risk Diet: Regular Dispo: Home tomorrow AM if tolerating breakfast Code: Full Admission and Anticipated Discharge Date Admission Date: April 14, 2021 Supervising Physician Co-Signing Physician Notes I personally examined the patient and verified all jesus points of history and exam, discussed case, and agree with decision making with Dr Musa. Feeling better than yesterday evening, but still with some discomfort after eating. Little bit of nausea after eating. Some cramping pain after eating. No vomiting since last night. Has had a bit more of a cough, inhaler helps. Has known diagnosis of COPD. Vitals noted, in general he is awake and alert pleasant no distress. HEENT normocephalic atraumatic mucous membranes moist. Breathing unlabored no accessory muscle use good effort lungs are overall clear to auscultation, faint rales base right that sounds fairly mucousy, otherwise no rales rhonchi or wheezes good effort no accessory muscle use. Abdomen is soft but he does have some epigastric tenderness no guarding or rigidity.. Skin shows no rashes no pallor or icterus. Neuro without focal deficits. Esophagitis/upper GI bleedingfortunately not much of any acute blood loss anemia of significance. EGD noted, input appreciated. Continue Protonix. For now he is not really able to tolerate p.o. well enough to be safe at homecontinue to titrate symptom controlling medicines until he is eating and drinking well enough to be safe on his own. Alcohol abuselast drink was about 4 days ago, fortunately no signs or symptoms of withdrawal. Previously discussed the direct relationship of drinking with esophagitis, also discussed that he appears to have alcoholic steatohepatitis, which runs the risk of progression to cirrhosis. He expressed good unders tanding of this, it seems that he drinks more out of habit and stress reliefto that end we discussed other stress relief techniques and the ideal of quitting versus potentially a more rational (for him) dramatic cutting back with close follow-up. Alcoholic steatohepatitissee above. Definitely continue to follow LFTs as an outpatient. We discussed absolute cessation would be the best, but if he were to cut back instead, would definitely want serial labs to ensure that the steatohepatitis picture appears to be improving. Leukocytosisnonspecific, no overt infections. Given that this improved, almost certainly demargination from vomiting. COPDcontinue inhalers, as needed albuterol. No evidence of clear COPD exacerbation at this time. Continue to follow. Otherwise as above. Subjective Pt. was awake and alert this morning, as he had just attempted to eat breakfast. He mostly declined to eat, due to cramping sensation he experienced with his initial trial of food. He reports feeling SOB last night, with wheezing and cough (clear phlegm). He received albuterol in the morning, which helped his symptoms. He admitted to some nausea but denied vomiting. Review of Systems Review of Systems: See HPI Physical Exam Constitutional: WD/WN, vitals as above Respiratory: Auscultation: lungs clear to auscultation bilaterally Cardiovascular: RRR, no murmur, no edema Gastrointestinal (Abdomen): normal bowel sounds, soft, nontender, no hepatosplenomegaly Results & Data Results & Data ([facility]) Vital Signs (Past 12 Hours) Vital Signs Temp Pulse Pulse Resp BP Pulse Ox Pulse Ox 04/16/21 15:39 36.7 C 72 18 144/89 H 96 04/16/21 11:47 36.6 C 61 18 138/73 97 04/16/21 11:04 96 04/16/21 07:35 37.0 C 66 19 122/73 96 04/16/21 07:28 62 04/16/21 07:01 64 17 96 04/16/21 07:00 37.0 C 66 19 122/73 96 Resident Activity Tracking Resident Involvement: Resident Care Provided Care Provided: Adult Hospital Medicine
--- NOTE | 2021-04-16 18:38 | Billing Data ---
Date of Service April 16, 2021 Coding Level of Care Code 45756 Subseq Hosp Care Lvl 3
[2021-04-16] MEDS: FAMOTIDINE 20 MG TAB PO SCH (20:09)
[2021-04-17] MEDS: PANTOprazole 40 MG in DEXTROSE 5% 100 ML IV SCH ×2 (04:04→09:26)
[2021-04-17] MEDS: ONDANSETRON INJ 2 MG/ML 2 ML VIAL IV PRN (04:34)
[2021-04-17] MEDS: VARENICLINE 1 MG TAB PO SCH (08:10)
[2021-04-17] MEDS: FAMOTIDINE 20 MG TAB PO SCH (08:10)
[2021-04-17] MEDS: UMECLIDINIUM/VILANTEROL 62.5/25MCG 7 PUFFS/INHALER INH SCH (08:11)
[2021-04-17] MEDS: CHECK CLONIDINE PATCH PLACEMENT SCH (08:12)
[2021-04-17] MEDS: ALUMINUM/MAGNESIUM/SIMETH (MAALOX MAX) 30 ML UDC PO PRN ×3 (08:21→12:03)
--- NOTE | 2021-04-17 10:51 | Hospitalist Progress Note ---
Date of Service April 17, 2021 Assessment & Plan (1) Hematemesis: Plan: Mr. Quintero is a 45 yo M PMH of COPD, previous PE, significant alcohol and tobacco use who presented for evaluation of hematemesis 8x episodes, likely from esophagitis (EGD) - PPI drip - Pepcid BID yulissa - PRN Zofran - premeal Maalox - Pt successfully tolerated dinner, and breakfast - Anticipate d/c if pt tolerates lunch as well (2) COPD with emphysema: Plan: - Albuterol PRN - Continue home Anoro inhaler (3) Current smoker: Plan: - Continue home varenicline - Nicotine patch PRN (4) Liver disease, alcoholic: Plan: - Hepatic steatosis noted on CTAP but exam non-concerning for cirrhosis at this time - MELD score 8 (5) GERD (gastroesophageal reflux disease): Plan: -PPI drip -Pepcid BID yulissa -Mylanta before meals (6) HTN (hypertension): Plan: - Held home metoprolol tartrate and clonidine on admission given acute blood loss - Catapres patch to replace clonidine (7) Leukocytosis: Plan: resolved (8) Alcohol use disorder: Admission and Anticipated Discharge Date Admission Date: April 14, 2021 Subjective Mr. Quintero reports greater toleration of dinner yesterday with the premeal Maalox with mild cramping and nausea afterward but no vomiting. He received Zofran for the nausea, which helped. He tolerated breakfast (cereal and pineapples) much better today, suffering only brief nausea and heartburn (15 minutes) that is now resolved. He denied any cramping this morning with breakfast. He further denied SOB, chest pain, headaches, dizziness, or vomiting. Review of Systems Review of Systems: See HPI Physical Exam Constitutional: WD/WN, vitals as above Respiratory: Auscultation: + crackles (heard at the right lower lung field, and on the middle left lung field) Cardiovascular: RRR, no murmur, no edema Gastrointestinal (Abdomen): Inspection/Auscultation: abdomen normal to inspection Percussion/Palpation: abdomen soft (minimally tender to palpation) Results & Data Results & Data ([facility]) Vital Signs (Past 12 Hours) Vital Signs Temp Pulse Resp BP BP Pulse Ox 04/17/21 08:04 36.6 C 71 19 142/96 H 96 0808/21 03:00 36.8 C 69 20 129/82 96 04/16/21 23:00 36.9 C 80 20 139/87 94 Resident Activity Tracking Resident Involvement: Resident Care Provided Care Provided: Adult Hospital Medicine
--- NOTE | 2021-04-17 16:38 | Discharge Summary ---
Date of Service April 17, 2021 Admission HPI Per Admitting Provider Mr. Quintero is a 45 yo gentleman with a PMHx of alcohol use disorder who presented for evaluation of hematemesis. Mr. Quintero reports at least 8 episodes of vomiting over the past 24 hours- he estimates he threw up ~ 32 ounces of blood. He did vomit once in the emergency department. Of note, he had been on Eliquis for a pulmonary embolism, but this was discontinued [address] Watkins. His PCP sent him to Dr. Watkins for hematologic evaluation - ie because his pulmonary embolism was unexpected. He is not on an anti-platelet agent. He denies any dark, tarry stools. No hematuria, or nosebleeds. He denies any chest pain, but does report being mildly short of breath. No fevers/chills, congestion, diarrhea, urinary symptoms. This is his first time every vomiting blood. He has never had an endoscopy. He denies any sick contacts. Social Hx: He drinks 6 beers per day. He denies ever going into alcohol withdrawal. He is a current, everyday smoker. In the ED, he was afebrile and hemodynamically stable. His Hgb was 15.3. Platelets were WNL. WBC was mildly elevated to 13. Cr at 0.94, BUN at 14. AST at 66, ALT at 56. T bili at 1.5. Lipase not elevated. COVID 19 neg. A cat scan of his abdomen and pelvis showed a possible developing colitis, hepatic steatosis and a small hiatal hernia. He was give a protonix bolus followed by a drip. He was placed on octreotide. He was given a dose of Ceftriaxone, 40mg IV methylprednisone and 4mg of morphine. Principal Diagnosis Esophagitis Discharge Exam In general he is awake and alert oriented, pleasant no distress. HEENT normocephalic atraumatic mucous members moist. Breathing unlabored no accessory muscle use good effort. Skin shows no rashes no pallor or icterus. Neuro without focal deficits. Discharge Data Allergies Allergy/AdvReac Type Severity Reaction Status Date / Time No Known Allergies Allergy Mild Verified 04/14/21 18:08 Consultations 04/14/21 18:06 ED Decision to Admit Stat 04/14/21 22:03 Consult Gastroenterology Routine Procedures Performed Operation Date: 04/15/21 16:45 Actual Procedures p Esophagogastroduodenoscopy - Juan Damian MD Ordered Studies 04/14/21 16:50 CT abd pelvis IV con only Stat Hospital Course (1) Hematemesis: Fortunately never showed any significant acute blood loss anemia. Scope showed the culprit to be fairly diffuse esophagitis. -Treated with Protonix 40 mg twice dailywe will continue this until follow- up/instructed to start reducing, anticipate repeat EGD in approximately 3 months -This alone was not enough to affect symptom controlfor now Pepcid 20 mg twice daily as well as Mylanta/Maalox approximately 30 mL before every mealuntil he no longer needs ithopefully only over the next week or so. -Alcohol cessation discussed multiple times. As it relates to his esophagitis, he understands that any amount of alcohol is likely to hurt a lot when he drinks it, as well as worsening esophagitis. See below as it relates to his liver disease. (2) COPD with emphysema: - (3) Current smoker: - Briefly discussed smoking cessation with patient, currently in contemplative stage - Continue home varenicline - Nicotine patch PRN (4) Liver disease, alcoholic: - Hepatic steatosis noted on CTAP but exam non-concerning for cirrhosis at this time -Discussed alcohol use in the context of his liver disease as well, noting that he really seems to fit with alcoholic steatohepatitis at this time, but nothing that appears to truly be cirrhotic. We discussed that cessation would likely lead to the anticipation of marked improvement/normalization of liver, but ongoing drinking at his current rate would likely start to lead to scarring/bridging/fibrosis/cirrhosis. As it relates to his esophagitis, right now absolute abstinence is required, down the road, given that he seems to drink more for relaxation and stress relief than addiction, but it was a habit that has gradually escalated, we discussed if absolute cessation is not an option/not viable how to stay within a safer range of moderation, but even with that, would likely require ongoing imaging and lab follow-up to ensure he is not subtly doing liver damage. (5) GERD (gastroesophageal reflux disease): Treatment for esophagitis, alcohol cessation should help (6) HTN (hypertension): Home on home meds (7) Leukocytosis: Was probably demargination (8) Alcohol use disorder: See above under esophagitis and alcoholic liver disease. For now it seems that his plan will be absolute cessation, at least for the time being. 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 Vomiting blood -You were hospitalized for vomiting blood multiple times. We tried to find the cause of your symptoms through a procedure called an EGD, which involved using a scope to examine the inside of your esophagus. The EGD found there were areas of your esophagus which were inflamed, which was likely due to cigarette smoke and alcohol damaging the lining of the esophagus. The best way to prevent further episodes of vomiting blood would be stopping alcohol and tobacco use, though we understand this is a very difficult thing to do. You should attempt to gradually cut back on your alcohol and cigarette use. Cutting back on alcohol will also improve the health of your liver, which our examination in the hospital found to also be inflamed by alcohol damage. The damage to your esophagus can be fixed by continuing to take Protonix, the new medication you were prescribed, as well as reducing your alcohol and cigarette use. A discharge summary will be sent to your primary care physician to ensure continuity of care. Please bring this discharge summary with you to your next office appointment so that your provider can review it at that time. Follow-up appointments: Make a follow-up appointment with your PCP within the next week. It is very important that you follow up with them shortly after discharge from the hospital. You should also schedule an appointment with a director trust for continued treatment of your esophagitis. Your PCP can help you find a director trust and set up an appointment. Medications: Your medication list has been reviewed and reconciled upon discharge to ensure accuracy and continuity of care. An updated list of all your medications is included with your hospital discharge paperwork. Please review this list closely, and make note of any changes. We sent a new medication called Protonix to your pharmacy, [facility]. Take Protonix 40 mg twice a day until your PCP recommends you discontinue the medication. Take your medications as instructed; do not skip a dose of your medicines. Make sure all of your doctors know every medicine you are taking (including nryd-[id number]-sexmaxv medicines, vitamins, and supplements). Call your primary care provider before taking any new medicines (including tcrq-[id number] medicines, vitamins, and supplements), because some of these may interact with your current medications, or may make your symptoms worse. Tell your primary care provider if you cannot afford your medications. CONTACT YOUR PRIMARY CARE PROVIDER OR GO TO THE EMERGENCY ROOM if you experience any of the following: Vomiting with or without blood Bloody stools- bright red blood or dark black stool Persistent cough Difficulty swallowing food or drink Difficulty breathing Difficulty following your treatment plan, or difficulty taking medications CALL 911 OR GO TO THE EMERGENCY DEPARTMENT if you experience any of the following: Sudden, severe abdominal pain or nausea/vomiting Severe chest pain, or chest pain that radiates (moves) to your jaw or arm Sudden, severe shortness of breath or difficulty breathing Thank you for allowing us to participate in your care. Pending Studies at Discharge: No Stand-Alone Forms: [facility] Bariatrics, Smoking Cessation Medications and DC Order Prescriptions: New pantoprazole [Protonix] 40 mg tablet,delayed release (DR/EC) 40 mg PO BID 30 Days Qty: 60 RF: 3 Continued metoprolol tartrate 25 mg tablet 25 mg PO BID PRN (Reason: palpitations) Qty: 60 RF: 8 albuterol sulfate 90 mcg/actuation HFA aerosol inhaler 2 puff inhalation Q6H PRN (Reason: Shortness Of Breath Or Wheezing) Qty: 18 RF: 3 clonidine HCl 0.1 mg tablet 0.1 mg PO BID Qty: 60 RF: 5 Eliquis 5 mg (74 tabs) tablets,dose pack 5 mg PO BID RF: 0 Chantix Continuing Month Box 1 mg tablet 1 mg PO BID Qty: 56 RF: 5 Anoro Ellipta 62.5-25 mcg/actuation blister with device 1 ea INHALATION DAILY Qty: 60 RF: 11 nicotine (polacrilex) 4 mg lozenge 4 mg buccal Q8H PRN (Reason: nicotine cravings) Qty: 72 RF: 1 multivitamin Tablet 1 tab PO QAM RF: 0 Discontinued omeprazole 40 mg capsule,delayed release(DR/EC) 40 mg PO BID Qty: 180 RF: 3 Discharge Orders: Discharge Order (Routine); Ordered 04/17/21 Ordered By: Mitra Musa Admission Data Admit Date/Time: 04/14/21 19:21 Attending Provider: Geovanni Dumas Admit Provider: Annalisa Diaz Primary Care Provider: Eddy Wylie Other Providers: Kvng Rodriguez ; Juan Damian Other Interventions: Discharge Summary Assessment (RN) Last Done: 04/17/21 15:14 Coding Level of Care Code D/C DAY MANAGEMENT <30 MINS Diagnoses Hematemesis K92.0 COPD with emphysema J43.9 Current smoker F17.200 Liver disease, alcoholic K70.9 GERD (gastroesophageal reflux disease) K21.9 HTN (hypertension) I10 Leukocytosis D72.829 Alcohol use disorder
--- NOTE | 2021-04-18 10:25 | Communication Note ---
Date of Service: April 18, 2021 Pharmacy contacted facility manager, Emely Nunez, and asked that an attending call in the Protonix 40mg po bid as they could not accept the resident's Rx. I sent Protonix 40mg po bid x 30 day supply in to his pharmacy in lieu of Dr. Dumas who was not working today.
== END 2021-04-17 16:05 | disposition home or self-care (01) | DRG 370 ==
LOC: ED 16:06 → SUATTDRO 19:21 → 2N 19:21
DX: Z20.822 Contact with and (suspected) exposure to COVID-19; J43.9 Emphysema, unspecified; A08.4 Viral intestinal infection, unspecified; K75.89 Other specified inflammatory liver diseases; K21.01 Gastro-esophageal reflux disease with esophagitis, with bleeding; K76.0 Fatty (change of) liver, not elsewhere classified; I10 Essential (primary) hypertension; Z79.899 Other long term (current) drug therapy; K29.70 Gastritis, unspecified, without bleeding; F17.210 Nicotine dependence, cigarettes, uncomplicated; D72.829 Elevated white blood cell count, unspecified; Z86.711 Personal history of pulmonary embolism; F10.10 Alcohol abuse, uncomplicated

== ENCOUNTER 2022-09-13 15:44 | Inpatient (IN) ==
[2022-09-13] MEDS ORDERED: ONDANSETRON INJ 2 MG/ML 2 ML VIAL IV STA (15:51)
[2022-09-13] MEDS ORDERED: SODIUM CHLORIDE 0.9% 500 ML IV STA (15:51)
[2022-09-13] MEDS ORDERED: SODIUM CHLORIDE 0.9% 1000ML 1,000 ML IV ONE (16:09)
[2022-09-13] MEDS ORDERED: MULTI-VITAMIN INFUSION 10 ML, THIAMINE HCL 100 MG, FOLIC ACID 1 MG in SODIUM CHLORIDE 0... IV ONE (16:09)
[2022-09-13] MEDS ORDERED: PANTOprazole 80 MG in DEXTROSE 5% 100 ML IV ONE (16:09)
[2022-09-13] MEDS ORDERED: LORazepam 1 MG TAB SL STA (16:11)
[2022-09-13 16:14] LABS: Basophils # (auto) 0.06 K/uL (0-0.2); Basophils % (auto) 0.5 %; Eosinophils # (auto) 0.11 K/uL (0-0.50); Eosinophils % (auto) 0.8 %; Hematocrit (blood only) 40.8 % (40.1-51.0); Hemoglobin 14.7 g/dl (14.0-18.0); Immature Granulocytes # (auto) 0.05 K/uL (0.00-0.02); Immature Granulocytes % (auto) 0.4 %; Lymphocytes # (auto) 1.34 K/uL (1.2-3.4); Lymphocytes % (auto) 10.1 %; Mean Corpuscular Hemoglobin 33.7 pg (25.0-34.0); Mean Corpuscular Volume 93.6 fL (80.0-100.0); Monocytes # (auto) 0.81 K/uL (0.24-0.82); Monocytes % (auto) 6.1 %; Neutrophils # (auto) 10.94 K/uL (1.4-6.5); Neutrophils % (auto) 82.1 %; Platelet Count 255 K/uL (130-400); RDW Coefficient of Variation 11.9 % (11.5-14.5); RDW Standard Deviation 41.6 fL (36.4-46.3); Red Blood Count 4.36 M/uL (4.63-6.08); White Blood Count 13.31 K/ul (4.8-10.8)
[2022-09-13] MEDS ORDERED: diphenhydrAMINE 50 MG/ML VIAL IV STA (16:22)
[2022-09-13] MEDS ORDERED: METOCLOPRAMIDE HCL INJ 5 MG/ML 2 ML VIAL IV ONE (16:22)
[2022-09-13 16:33] LABS: Partial Thromboplastin Time 26.8 Seconds (21.0-31.0); Prothrombin Time 10.4 Seconds (9.0-12.0)
[2022-09-13 16:36] LABS: Alanine Aminotransferase 30 U/L (7-52); Albumin Globulin Ratio 1.4 (0.9-2); Albumin Level 4.5 gm/dl (3.4-5.0); Alkaline Phosphatase 62 U/L (34-104); Anion Gap 9 (3-11); Aspartate Aminotransferase 35 U/L (13-39); BUN Creatinine Ratio 16.8 (10-20); Blood Urea Nitrogen 16 mg/dl (6-23); Calcium 9.5 mg/dl (8.5-10.1); Carbon Dioxide 32 mmol/L (21-32); Chloride 100 mmol/L (98-107); Est GFR (African American) 109.3 ml/min; Est GFR (Non-African American) 94.3 ml/min; Globulin 3.3 gm/dl (2.5-4.0); Glucose 117 mg/dl (70-99(Fasting)); Lipase 13 U/L (11-82); Potassium 3.9 mmol/L (3.5-5.1); Sodium 141 mmol/L (136-145); Total Protein 7.8 gm/dl (6.0-8.3)
[2022-09-13 16:53] LABS: Influenza A virus by PCR Negative (Neg); Influenza B virus by PCR Negative (Neg); RSV by PCR Negative (Neg); SARS CoV2 RNA(COVID-19) Ceph NEGATIVE (Negative)
--- NOTE | 2022-09-13 16:57 | XRay Report ---
PA CHEST WITH ABDOMINAL SERIES CLINICAL HISTORY: Vomiting. FINDINGS: 2 PA chest radiographs are correlated with chest CT dated 07/18/2021. The cardiomediastinal silhouette is unremarkable. The lungs and pleural spaces are clear. No pneumothorax is seen. The bony thorax is grossly intact. Fusion hardware is noted in the lower cervical spine. Supine and erect abdominal radiographs are correlated with abdominal CT dated 04/14/2021. There is a no nobstructed abdominal bowel gas pattern. No evidence of intraperitoneal free air is seen. There are n o abnormal abdominal calcifications. The lumbosacral spine and bony pelvis appear intact. IMPRESSION: 1. No active disease in the chest. 2. Nonobstructed abdominal bowel gas pattern. ACT 112: Negative or not required by law. Electronically signed by: Kelton Thomas M.D. 09/13/2022 4:56 PM
--- NOTE | 2022-09-13 17:12 | History & Physical Report ---
Date of Service September 13, 2022 Assessment & Plan (1) Hematemesis: Plan: - 1- 2 weeks of occasional hematemesis with acute worsening over the past day with ongoing alcohol use. - Suspect gastritis/duodenitis from recent alcohol binge. - Hgb 14.7, patient hemodynamically stable, trend H/H. - Suspect elevated WBC is reactive from frequent vomiting, no evidence of infection, no history of SBP, no ascites on exam. - NPO, start PPI drip w/ bolus. - Has received multiple agents for nausea, vomiting, will continue. - Continue IVF. - GI consulted, appreciate their recommendations and assistance with this patient. - EGD 08/30: Reflux esophagitis, gastritis, no esophageal varices noted. (2) Alcohol use disorder: Plan: - Patient reports recent binge of alcohol, normally drinks range of 26 beers p er day, has gone 1 or 2 days without drinking and denies any withdrawal symptoms such as shaking, seizures, hallucinations. - AWSS at risk protocol. - Received banana bag in ED, will continue with daily folate, thiamine supplementation. (3) Liver disease, alcoholic: Plan: - Documented history of hepatic steatosis on a previous CT scan. - T bili 2.0 today, without other LFT abnormalities. - Patient states he is cut down on his alcohol intake, recommend total cessation. (4) COPD (chronic obstructive pulmonary disease): Plan: - No evidence of acute exacerbation. Continue home inhalers. (5) HTN (hypertension): Plan: - Continue clonidine, metoprolol. (6) GERD (gastroesophageal reflux disease): Plan: - On PO PPI, transition to IV PPI as above for suspected gastritis. Plan - Admit to PCU. - SCDs for VTE PPx, holding chemo PPx given hematemesis. - Full code. History of Present Illness Chief Complaint: ongoing hematemesis x weeks Primary Care Provider: Eddy Wylie DO eGrry Quintero is a 47-year-old male with a past medical history significant for alcohol abuse, COPD, GERD, hypertension and prior PE is presenting today with vomiting and lightheadedness. Patient has history of alcohol abuse and prior upper GI bleed about 1 year ago. States he has been drinking couple beers a day for the past couple weeks and has ongoing dark brown, coffee emesis that had been manageable up until today when it became much more frequent. He is visibly shaking in the room and actively vomiting, with a paint can full of coffee- ground emesis at the bedside. He is complaining of abdominal pain throughout, but worse in his upper abdomen. Does not radiate to the back. He has been unable to keep any food or drinks down over the past 12 hours. He has not had any fever or chills. States he has significantly cut down from drinking since his last hospitalization and has gone a day or 2 without alcohol recently without having any shakes, hallucinations, or seizures. Upon presentation, he is moderately hypertensive and borderline tachycardic, otherwise vital signs within normal limits. Labs notable for a white count of 13 with left shift, hemoglobin within normal limits and stable at 14.7. Also notable is T bili 2.0, no other LFT derangements, no electrolyte abnormalities, renal function at baseline. Lipase 13. Chest/abdomen XR shows no acute disease process, nonobstructive abdominal bowel gas pattern is noted Allergies Allergy/AdvReac Type Severity Reaction Status Date / Time No Known Allergies Allergy Mild Verified 08/29/21 13:44 Home Medications Medication Instructions Recorded Confirmed Type multivitamin 1 tab PO QAM 07/03/20 08/29/21 History calcium carb 1,200 mg-mag hydrox 10 ml PO AC #355 mL 04/18/21 08/29/21 Rx 270 mg-simeth 80 mg/10 mL oral susp (Mylanta Coat-Cool) nicotine 14 mg/24 hr daily 1 patch transdermal DAILY #28 ea 07/13/21 08/29/21 Rx transdermal patch nicotine 21 mg/24 hr daily 1 patch transdermal DAILY #28 ea 07/13/21 08/29/21 Rx transdermal patch nicotine 7 mg/24 hr daily 1 patch transdermal Q24H #28 ea 07/13/21 08/29/21 Rx transdermal patch albuterol sulfate 90 mcg/actuation 2 puff inhalation Q6H PRN 07/25/21 08/29/21 Rx aerosol inhaler Shortness Of Breath Or Wheezing #18 grams amitriptyline 25 mg tablet 25 mg PO DAILY #30 tabs 08/29/21 08/29/21 Rx clonidine HCl 0.1 mg tablet 0.1 mg PO BID #60 tabs 12/15/21 Rx metoprolol tartrate 25 mg tablet 25 mg PO BID PRN palpitations #60 12/15/21 Rx tabs pantoprazole 40 mg tablet,delayed 40 mg PO DAILY #30 tabs 12/15/21 Rx release (Protonix) umeclidinium 62.5 mcg-vilanterol 1 ea inhalation QAM #60 ea 12/15/21 Rx 25 mcg/actuation powdr for inhalation (Anoro Ellipta) Past Med/Surg History Medical History Alcohol abuse Alcohol intoxication Closed cervical spine fracture (2011) COPD with emphysema Current smoker GERD (gastroesophageal reflux disease) Heart palpitations follows with Dr. Jean HTN (hypertension) Labile hypertension Liver disease, alcoholic Pulmonary embolism (06/2020) was on blood thinners was taken off roughly a few months now Surgical History History of esophagogastroduodenoscopy (EGD) 04/15/21 Dr. Juan Damian at [facility] History of fusion of cervical spine History of tooth extraction History of wisdom tooth extraction Family History Aunt Myocardial infarction Breast cancer Uncle Myocardial infarction Brother Myocardial infarction Other No family history of adverse response to anesthesia Denies family history of Ovarian cancer Prostate cancer Colorectal cancer Social History Smoking Status: Current every day smoker Tobacco Type: Cigarettes packs per day: 0.5; Cigarettes Per Day: 15; Second Hand Exposure: Yes; Hx Alcohol Use: Yes Alcohol type: beer Alcohol Intake Frequency: 2-3 x/Week Hx Substance Use: No Preferred Language: [place] Communication Ability: Effective 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 Beliefs That Will Affect Care: None marital status: Current Living Situation: Significant Other Current Living Situation Comment: lives with dtr current occupational status: employed Feels Safe at Home: Yes caffeine: Yes Dental Care, Regularly: No Physical Activity Frequency: Daily Seatbelt Use: always Sunscreen Use: No Assistive Devices: Glasses Review of Systems Review of Systems: Constitutional: No fever/chills, weakness, fatigue, myalgias, anorexia, night sweats Eyes: No diplopia, no worsening or blurred vision ENT: normal hearing, no trouble swallowing Respiratory: No cough, sputum, dyspnea at rest or on exertion Cardiovascular: No chest pain, tightness or palpitations Abdomen: upper abdominal pain with nausea and coffee ground emesis x weeks, worse today : Denies dysuria, hematuria, increased urgency/frequency, urinary retention Musculoskeletal: No joint pain, calf pain, swelling Neurologic: No weakness, numbness/tingling, or balance problems Psychiatric: No anxiety or depression Skin: No rash or itch Physical Exam Physical Exam: General: awake, alert, tremulous, vomiting up foam/clear emesis frequently on visit Head: Normocephalic, atraumatic ENT: PERRL, EOMI, no pharyngeal exudate, mucous membranes moist Chest: Clear to auscultation, on room air, no adventitious breath sounds Cardiac: Regular rate and rhythm, no murmur, no JVD, normal peripheral pulses, good capillary refill Abdominal: TTP in epigastrium, RUQ; NABS x 4 quadrants, soft, no rebound, guarding or tenderness Extremities: Normal inspection, no peripheral edema or erythema, calfs nontender to palpation Psych: Normal mood and affect Neuro: AAO x 3, strength intact bilaterally and rated 5/5, no motor deficits, speech is clear, no peripheral sensory deficits Skin: no rash or erythema Results & Data Results & Data ([facility]) Vital Signs (Past 12 Hours) Vital Signs Temp Pulse Resp BP Pulse Ox O2 Del Method 09/13/22 15:47 36.3 C L 97 H 20 147/102 H 98 Room Air Laboratory Results Abnormal lab results 09/13/22 09/13/22 Range/Units 15:57 15:57 WBC 13.31 H (4.8-10.8) K/ul RBC 4.36 L (4.63-6.08) M/uL Neut # (Auto) 10.94 H (1.4-6.5) K/uL Immature Gran # (Auto) 0.05 H (0.00-0.02) K/uL Glucose 117 H (70-99(Fasting)) mg/dl Total Bilirubin 2.0 H (0.2-1.0) mg/dl Diagnostic Findings Chest/Abdomen X-ray 09/13/22 16:09 PA CHEST WITH ABDOMINAL SERIES CLINICAL HISTORY: Vomiting. FINDINGS: 2 PA chest radiographs are correlated with chest CT dated 07/18/2021. The cardiomediastinal silhouette is unremarkable. The lungs and pleural spaces are clear. No pneumothorax is seen. The bony thorax is grossly intact. Fusion hardware is noted in the lower cervical spine. Supine and erect abdominal radiographs are correlated with abdominal CT dated 04/14/2021. There is a nonobstructed abdominal bowel gas pattern. No evidence of intraperitoneal free air is seen. There are no abnormal abdominal calcifications. The lumbosacral spine and bony pelvis appear intact. IMPRESSION: 1. No active disease in the chest. 2. Nonobstructed abdominal bowel gas pattern. ACT 112: Negative or not required by law. Electronically signed by: Kelton Thomas M.D. 09/13/2022 4:56 PM ECG Additional Comments: Poor data quality, interpretation may be adversely affected Normal sinus rhythm with sinus arrhythmia Possible Left atrial enlargement Borderline ECG W hen compared with ECG of 14-APR-2021 16:35, No significant change was found. Code Status & VTE Plan Code Status Full code Supervising Physician Co-Signing Physician Notes Patient seen and examined, chart reviewed, case discussed with Sherita Bird PA-C and I agree with the assessment and plan as above except as otherwise noted Labs and images reviewed 47-year-old male with history of alcohol abuse, GERD, COPD, hypertension, PE who presented with vomiting/lightheadedness. History of GI bleed.? Hematemesis given dark coffee-ground appearance of emesis. On exam breathing is unlabored, patient is regular but tachycardic, and has epigastric tenderness. Feels nauseous during exam. Several beers per day of alcohol intake. No bright red blood after vomiting/retching. Agree with evaluation for GI bleed in the setting of alcohol use, ulcerative disease versus EtOH induced gastritis hemodynamically stable. GI consulted. Continue PPI drip. Trend H&H, currently with normal hemoglobin and no hypotension on admission. AWSS protocol. No known esophageal or evidence of varices on prior imaging. NPO. Agree with management above. PG Care Time/CCT Total # of Minutes Spent Total Time Spent with Patient: Total time spent is greater than 50% in coordination of care (as documented) at patient's floor/unit and/or counseling patient: Coding Level of Care Code 67534 INT INP/OBS CARE 375MIN Diagnoses Hematemesis K92.0 Alcohol use disorder F19.90 Liver disease, alcoholic K70.9 COPD (chronic obstructive pulmonary disease) J44.9 HTN (hypertension) I10 GERD (gastroesophageal reflux disease) K21.9
[2022-09-13] MEDS: PANTOprazole 40 MG in DEXTROSE 5% 100 ML IV SCH ×2 (17:33→22:55)
[2022-09-13] MEDS ORDERED: LORazepam 2 MG/1 ML VIAL IV PRN (18:29)
[2022-09-13] MEDS ORDERED: METOPROLOL TARTRATE 25 MG TAB PO PRN (18:29)
[2022-09-13] MEDS ORDERED: ALBUTEROL HFA 8 GM INHALER INH PRN (18:29)
--- NOTE | 2022-09-13 19:06 | Emergency Department Note ---
History of Present Illness General Chief complaint: Vomiting Stated complaint: VOMITING BLOOD, SHIVERING, LIGHT HEADED Time Seen by Provider: 09/13/22 16:03 History of Present Illness Provider Complaint: + nausea, + vomiting and + abdominal pain Onset (ago): day(s) 1 Description of Vomiting: + bloody and + coffee grounds Description of Diarrhea: + none Location of pain: + epigastric Severity: moderate Maximum Pain Intensity: 9 Quality: + stabbing and + sharp Pain Consistency: + intermittent Relieved By: + none Exacerbated By: + vomiting Context: + alcohol abuse; no sick contacts, no history of abdominal surgery, no anticoagulant use, no NSAID use, no self induced, no smoking or no marijuana use Associated symptoms: no chest pain, no cough, no diaphoresis, no fever/chills, no headaches, no rash, no dysuria, no syncope, no weakness, no fecal incontinence, no tenesmus, no altered mental status, no anxiety, no fatigue or no numbness Home Medications Medication Instructions Recorded Confirmed Type multivitamin 1 tab PO QAM 07/03/20 08/29/21 History calcium carb 1,200 mg-mag hydrox 10 ml PO AC #355 mL 04/18/21 08/29/21 Rx 270 mg-simeth 80 mg/10 mL oral susp (Mylanta Coat-[employer]) nicotine 14 mg/24 hr daily 1 patch transdermal DAILY #28 ea 07/13/21 08/29/21 Rx transdermal patch nicotine 21 mg/24 hr daily 1 patch transdermal DAILY #28 ea 07/13/21 08/29/21 Rx transdermal patch nicotine 7 mg/24 hr daily 1 patch transdermal Q24H #28 ea 07/13/21 08/29/21 Rx transdermal patch albuterol sulfate 90 mcg/actuation 2 puff inhalation Q6H PRN 07/25/21 08/29/21 Rx aerosol inhaler Shortness Of Breath Or Wheezing #18 grams amitriptyline 25 mg tablet 25 mg PO DAILY #30 tabs 08/29/21 08/29/21 Rx clonidine HCl 0.1 mg tablet 0.1 mg PO BID #60 tabs 12/15/21 Rx metoprolol tartrate 25 mg tablet 25 mg PO BID PRN palpitations #60 12/15/21 Rx tabs pantoprazole 40 mg tablet,delayed 40 mg PO DAILY #30 tabs 12/15/21 Rx release (Protonix) umeclidinium 62.5 mcg-vilanterol 1 ea inhalation QAM #60 ea 12/15/21 Rx 25 mcg/actuation powdr for inhalation (Anoro Ellipta) Allergies Allergy/AdvReac Type Severity Reaction Status Date / Time No Known Allergies Allergy Mild Verified 08/29/21 13:44 Past Med/Surg History Medical History Alcohol abuse Alcohol intoxication Closed cervical spine fracture (2011) COPD with emphysema Current smoker GERD (gastroesophageal reflux disease) Heart palpitations follows with Dr. Jean HTN (hypertension) Labile hypertension Liver disease, alcoholic Pulmonary embolism (06/2020) was on blood thinners was taken off roughly a few months now Surgical History History of esophagogastroduodenoscopy (EGD) 04/15/21 Dr. Juan Damian at [facility] History of fusion of cervical spine History of tooth extraction History of wisdom tooth extraction Family History Aunt Myocardial infarction Breast cancer Uncle Myocardial infarction Brother Myocardial infarction Other No family history of adverse response to anesthesia Denies family history of Ovarian cancer Prostate cancer Colorectal cancer Social History Smoking Status: Current every day smoker Tobacco Type: Cigarettes packs per day: 0.5; Cigarettes Per Day: 10; Second Hand Exposure: Yes; Hx Alcohol Use: Yes Alcohol type: beer Alcohol Intake Frequency: 2-3 x/Week Hx Substance Use: No Preferred Language: Portuguese Communication Ability: Effective Home Health Lvn Required: No Beliefs That Will Affect Care: None marital status: Current Living Situation: Significant Other Current Living Situation Comment: Lives with fiance and daughter current occupational status: employed Feels Safe at Home: Yes caffeine: Yes Dental Care, Regularly: No Physical Activity Frequency: Daily Seatbelt Use: always Sunscreen Use: No Assistive Devices: None Physical Exam Vital Signs: Vital Signs - 24 hr 09/13/22 15:47 09/13/22 15:45 Temperature 36.3 C L Temperature Source Temporal Artery Sc an Pulse Rate 97 H Pulse Rate [Apical ] 111 H Pulse Rhythm Regular Pulse Rhythm [Apic al] Regular Pulse Strength [Ap ical] Normal Respiratory Rate 20 22 Respiratory Effort / Characteristics Non-Labored Sponta neous Non-Labored Respiratory Depth Normal Normal Respiratory Patter n Regular Blood Pressure 147/102 H Blood Pressure [Ri ght Arm] 168/98 H Blood Pressure Penelope n 117 Blood Pressure Penelope n [Right Arm] 121 Blood Pressure Pos ition [Right Arm] Lying Pulse Oximetry 98 98 Oxygen Delivery Me thod Room Air Room Air Sepsis Recent Feve r Within 48 Hours No Sepsis New/Unexpla ined Change in Men donna Status No Sepsis Action Take n by Nursing No Action Required Physical Exam: Physical Exam GENERAL: Patient is clutching a bucket full of coffee-ground emesis. HENT: Exam performed. - Head: Normocephalic and atraumatic. - Right Ear: External ear normal. No mastoid tenderness. - Left Ear: External ear normal. No mastoid tenderness. - Mouth/Throat: The oropharynx is clear and moist. No trismus in the jaw. No dental abscesses or uvula swelling. No oropharyngeal exudate or tonsillar abscesses. EYES: Conjunctivae and EOM are normal. Pupils are equal, round, and reactive to light. Right eye exhibits no discharge. Left eye exhibits no discharge. No scleral icterus. NECK: Normal range of motion. Neck supple. No JVD present. No spinous process tenderness present. No carotid bruit present. No rigidity. No tracheal deviation and normal range of motion present. No Brudzinski's sign and no Kernig's sign noted. CV: Tachycardic rate, regular rhythm, normal heart sounds and intact distal pulses. There is no peripheral edema. Palpable radial pulses bue. PULM/CHEST: Effort normal and breath sounds normal. No respiratory distress. No stridor. He has no wheezes. He has no rales. - Chest Wall: He exhibits no tenderness. ABD: The abdomen is soft. Bowel sounds are normal. He has no distension. No mass is present. There is no tenderness. There is no rebound, no guarding, no Adhikari's sign and no tenderness at McBurney's point. Rovsig negative. MUSC/SKEL: Normal range of motion. There is no peripheral edema, tenderness or deformity. LYMPH: No cervical adenopathy. NEURO: He is alert and oriented to person, place, and time. He has normal strength. No cranial nerve deficit or sensory deficit. Coordination and gait normal. GCS eye subscore is 4. GCS verbal subscore is 5. GCS motor subscore is 6. Cerebellar tests wnl. SKIN: Skin is warm and dry. He is not diaphoretic. PSYCH: He has a normal mood and affect. Behavior is normal. Judgment and thought content normal. Course Course 160: The patient was evaluated in room C2B. A complete history and physical exam was performed Cardiac monitoring: An order was placed for continuous cardiac monitoring. The monitor shows a rate of 100 with sinus rhythm External medical records reviewed. Patient was admitted to this facility in A ugust 2020 for similar episodes of hematemesis. Patient had an EGD done in April and July 2021 which showed no varices but did show gastritis/esophagitis. Labs and imaging will be conducted and the patient be started on Protonix given his coffee-ground emesis. 1705: Vital signs stable. Labs and imaging within normal limits with exception of leukocytosis of 13 which is thought to be reactive. Bilirubin level elevated 2. Patient reports feeling better after receiving Reglan Benadryl and Zofran in the emergency department. IV fluids and banana bag started in the emergency department. [facility] Administered Medications Pantoprazole Sodium 40 mg/ (Dextrose) 100 mls @ 20 mls/hr IV Q5H KEMAR Stop: 10/13/22 16:14 Last Admin: 09/13/22 17:33 Dose: 20 mls/hr Documented By: NAGA Discontinued Medications Diphenhydramine HCl (Diphenhydramine 50 Mg/Ml Vial) 25 mg IV NOW STA Stop: 09/13/22 16:23 Last Admin: 09/13/22 16:25 Dose: 25 mg Documented By: NAGA Sodium Chloride (Nss) 500 mls @ 999 mls/hr IV .Q31M STA Stop: 09/13/22 16:21 Last Admin: 09/13/22 17:10 Dose: Not Given Documented By: NAGA Sodium Chloride (Nss 1000ml) 1,000 mls @ 999 mls/hr IV .Q1H1M ONE Stop: 09/13/22 17:09 Last Admin: 09/13/22 18:16 Dose: 999 mls/hr Documented By: SARA Pantoprazole Sodium 80 mg/ (Dextrose) 120 mls @ 400 mls/hr IV NOW ONE Stop: 09/13/22 16:26 Last Admin: 09/13/22 17:02 Dose: 400 mls/hr Documented By: NAGA Multivitamins 10 ml/ Thiamine HCl 100 mg/ Folic Acid 1 mg/Sodium Chloride 1,011.2 mls @ 1,011.2 mls/hr IV .Q1H ONE Stop: 09/13/22 17:08 Last Infusion: 09/13/22 18:17 Dose: 0 mls/hr Documented By: Admin: 09/13/22 16:52 Dose: 1,011.2 mls/hr Documented By: NAGA Lorazepam (Lorazepam 1 Mg Tab) 1 mg SL NOW STA Stop: 09/13/22 16:12 Last Admin: 09/13/22 16:20 Dose: 1 mg Documented By: NAGA Metoclopramide HCl (Metoclopramide Hcl Inj 5 Mg/Ml 2 Ml Vial) 5 mg IV ONE ONE Stop: 09/13/22 16:23 Last Admin: 09/13/22 16:25 Dose: 5 mg Documented By: NAGA Ondansetron HCl (Ondansetron Inj 2 Mg/Ml 2 Ml Vial) 4 mg IV NOW STA Stop: 09/13/22 15:52 Last Admin: 09/13/22 16:02 Dose: 4 mg Documented By: TYRESE Medical Decision Making Laboratory Data Attestation: I reviewed the patient's lab results. Result diagrams: 09/13/22 15:57 09/13/22 15:57 Lab Results 09/13/22 09/13/22 09/13/22 Range/Units 15:57 15:57 15:57 WBC 13.31 H (4.8-10.8) K/ul RBC 4.36 L (4.63-6.08) M/uL Hgb 14.7 (14.0-18.0) g/dl Hct 40.8 (40.1-51.0) % MCV 93.6 (80.0-100.0) fL MCH 33.7 (25.0-34.0) pg MCHC 36.0 (32.0-36.0) g/dL RDW Std Deviation 41.6 (36.4-46.3) fL RDW Coeff of Marguerite 11.9 (11.5-14.5) % Plt Count 255 (130-400) K/uL MPV 10.0 (9.4-12.4) fL Immature Gran % (Auto) 0.4 % Neut % (Auto) 82.1 % Lymph % (Auto) 10.1 % Park % (Auto) 6.1 % Eos % (Auto) 0.8 % Baso % (Auto) 0.5 % Neut # (Auto) 10.94 H (1.4-6.5) K/uL Lymph # (Auto) 1.34 (1.2-3.4) K/uL Park # (Auto) 0.81 (0.24-0.82) K/uL Eos # (Auto) 0.11 (0-0.50) K/uL Baso # (Auto) 0.06 (0-0.2) K/uL Immature Gran # (Auto) 0.05 H (0.00-0.02) K/uL PT 10.4 (9.0-12.0) Seconds INR 1.0 (0.9-1.1) APTT 26.8 (21.0-31.0) Seconds PTT Ratio 1.0 Sodium 141 (136-145) mmol/L Potassium 3.9 (3.5-5.1) mmol/L Chloride 100 (98-107) mmol/L Carbon Dioxide 32 (21-32) mmol/L Anion Gap 9 (3-11) BUN 16 (6-23) mg/dl Creatinine 0.95 (0.6-1.4) mg/dl Est Cr Clr Drug Dosing Not Reportable Est GFR ( Amer) 109.3 ml/min Est GFR (Non-Af Amer) 94.3 ml/min BUN/Creatinine Ratio 16.8 (10-20) Glucose 117 H (70-99(Fasting)) mg/dl Calcium 9.5 (8.5-10.1) mg/dl Magnesium (1.7-2.4) mg/dl Total Bilirubin 2.0 H (0.2-1.0) mg/dl AST 35 (13-39) U/L ALT 30 (7-52) U/L Alkaline Phosphatase 62 (34-104) U/L Total Protein 7.8 (6.0-8.3) gm/dl Albumin 4.5 (3.4-5.0) gm/dl Globulin 3.3 (2.5-4.0) gm/dl Albumin/Globulin Ratio 1.4 (0.9-2) Lipase 13 (11-82) U/L Blood Type Antibody Screen 09/13/22 09/13/22 Range/Units 15:57 16:04 WBC (4.8-10.8) K/ul RBC (4.63-6.08) M/uL Hgb (14.0-18.0) g/dl Hct (40.1-51.0) % MCV (80.0-100.0) fL MCH (25.0-34.0) pg MCHC (32.0-36.0) g/dL RDW Std Deviation (36.4-46.3) fL RDW Coeff of Marguerite (11.5-14.5) % Plt Count (130-400) K/uL MPV (9.4-12.4) fL Immature Gran % (Auto) % Neut % (Auto) % Lymph % (Auto) % Park % (Auto) % Eos % (Auto) % Baso % (Auto) % Neut # (Auto) (1.4-6.5) K/uL Lymph # (Auto) (1.2-3.4) K/uL Park # (Auto) (0.24-0.82) K/uL Eos # (Auto) (0-0.50) K/uL Baso # (Auto) (0-0.2) K/uL Immature Gran # (Auto) (0.00-0.02) K/uL PT (9.0-12.0) Seconds INR (0.9-1.1) APTT (21.0-31.0) Seconds PTT Ratio Sodium (136-145) mmol/L Potassium (3.5-5.1) mmol/L Chloride (98-107) mmol/L Carbon Dioxide (21-32) mmol/L Anion Gap (3-11) BUN (6-23) mg/dl Creatinine (0.6-1.4) mg/dl Est Cr Clr Drug Dosing Est GFR ( Amer) ml/min Est GFR (Non-Af Amer) ml/min BUN/Creatinine Ratio (10-20) Glucose (70-99(Fasting)) mg/dl Calcium (8.5-10.1) mg/dl Magnesium 1.5 L (1.7-2.4) mg/dl Total Bilirubin (0.2-1.0) mg/dl AST (13-39) U/L ALT (7-52) U/L Alkaline Phosphatase (34-104) U/L Total Protein (6.0-8.3) gm/dl Albumin (3.4-5.0) gm/dl Globulin (2.5-4.0) gm/dl Albumin/Globulin Ratio (0.9-2) Lipase (11-82) U/L Blood Type O Negative Antibody Screen NEGATIVE Imaging Data Radiologist's Impression: Chest/Abdomen X-ray 09/13/22 16:09 PA CHEST WITH ABDOMINAL SERIES CLINICAL HISTORY: Vomiting. FINDINGS: 2 PA chest radiographs are correlated with chest CT dated 07/18/2021. The cardiomediastinal silhouette is unremarkable. The lungs and pleural spaces are clear. No pneumothorax is seen. The bony thorax is grossly intact. Fusion tirado rdware is noted in the lower cervical spine. Supine and erect abdominal radiographs are correlated with abdominal CT dated 04/14/2021. There is a nonobstructed abdominal bowel gas pattern. No evidence of intraperitoneal free air is seen. There are no abnormal abdominal calcifications. The lumbosacral spine and bony pelvis appear intact. IMPRESSION: 1. No active disease in the chest. 2. Nonobstructed abdominal bowel gas pattern. ACT 112: Negative or not required by law. Electronically signed by: Kelton Thomas M.D. 09/13/2022 4:56 PM ECG Data Attestation: I personally reviewed and interpreted this ECG as follows: Indication: vomiting Rate (beats per minute): 99 Rhythm: normal sinus Findings: + peaked T-waves; no ST depression, no ST elevation or no prolonged QT MDM Narrative 1603: The patient was evaluated in room C2B. A complete history and physical exam was performed Cardiac monitoring: An order was placed for continuous cardiac monitoring. The monitor shows a rate of 100 with sinus rhythm External medical records reviewed. Patient was admitted to this facility in April 2021 for similar episodes of hematemesis. Patient had an EGD done in April and July 2021 which showed no varices but did show gastritis/esophagitis. Labs and imaging will be conducted and the patient be started on Protonix given his coffee-ground emesis. 1705: Vital signs stable. Labs and imaging within normal limits with exception of leukocytosis of 13 which is thought to be reactive. Bilirubin level elevated 2. Patient reports feeling better after receiving Reglan Benadryl and Zofran in the emergency department. IV fluids and banana bag started in the emergency department. [facility] Impression & Plan UGIB (upper gastrointestinal bleed), Alcohol use disorder Discharge Plan Visit Data Chief Complaint: Vomiting Stated Complaint: VOMITING BLOOD, SHIVERING, LIGHT HEADED ED Provider: Ken Yang Discharge Problem: UGIB (upper gastrointestinal bleed), Alcohol use disorder Patient Disposition: Admitted As Inpatient Discharge Instructions Interventions: ED Discharge Assessment Last Done: 09/13/22 18:31
[2022-09-13] MEDS: LACTATED RINGER'S 1,000 ML IV SCH (19:41)
[2022-09-13] MEDS: cloNIDine HCL 0.1 MG TAB PO SCH (21:13)
[2022-09-13 23:28] LABS: Hematocrit (blood only) 35.4 % (40.1-51.0); Hemoglobin 12.4 g/dl (14.0-18.0)
[2022-09-14] MEDS: LACTATED RINGER'S 1,000 ML IV SCH ×3 (03:19→19:35)
[2022-09-14] MEDS: PANTOprazole 40 MG in DEXTROSE 5% 100 ML IV SCH ×3 (03:58→15:47)
[2022-09-14] MEDS: ONDANSETRON INJ 2 MG/ML 2 ML VIAL IV PRN ×2 (04:16→19:42)
[2022-09-14 04:51] LABS: Basophils # (auto) 0.06 K/uL (0-0.2); Basophils % (auto) 0.5 %; Eosinophils # (auto) 0.09 K/uL (0-0.50); Eosinophils % (auto) 0.8 %; Hematocrit (blood only) 34.8 % (40.1-51.0); Hemoglobin 12.2 g/dl (14.0-18.0); Immature Granulocytes # (auto) 0.07 K/uL (0.00-0.02); Immature Granulocytes % (auto) 0.6 %; Lymphocytes # (auto) 1.78 K/uL (1.2-3.4); Lymphocytes % (auto) 15.3 %; Mean Corpuscular Hemoglobin 33.7 pg (25.0-34.0); Mean Corpuscular Hgb Conc 35.1 g/dL (32.0-36.0); Mean Corpuscular Volume 96.1 fL (80.0-100.0); Mean Platelet Volume 10.4 fL (9.4-12.4); Monocytes # (auto) 1.05 K/uL (0.24-0.82); Neutrophils # (auto) 8.62 K/uL (1.4-6.5); Neutrophils % (auto) 73.8 %; Platelet Count 191 K/uL (130-400); RDW Coefficient of Variation 12.3 % (11.5-14.5); RDW Standard Deviation 43.8 fL (36.4-46.3); Red Blood Count 3.62 M/uL (4.63-6.08); White Blood Count 11.67 K/ul (4.8-10.8)
[2022-09-14 05:22] LABS: Albumin Globulin Ratio 1.3 (0.9-2); Albumin Level 3.2 gm/dl (3.4-5.0); Bilirubin,Total 1.9 mg/dl (0.2-1.0); Calcium 8.2 mg/dl (8.5-10.1); Est GFR (African American) 122.4 ml/min; Est GFR (Non-African American) 105.6 ml/min; Globulin 2.4 gm/dl (2.5-4.0); Magnesium 1.4 mg/dl (1.7-2.4); Potassium 3.5 mmol/L (3.5-5.1); Total Protein 5.6 gm/dl (6.0-8.3)
[2022-09-14] MEDS: UMECLIDINIUM/VILANTEROL 62.5/25MCG 7 PUFFS/INHALER INH SCH (08:41)
[2022-09-14] MEDS: THIAMINE HCL 100 MG TAB PO SCH (08:42)
[2022-09-14] MEDS: AMITRIPTYLINE HCL 25 MG TAB PO SCH (08:42)
[2022-09-14] MEDS: NICOTINE 14 MG/24 HR PATCH TD SCH (08:42)
[2022-09-14] MEDS: FOLIC ACID 1 MG TAB PO SCH (08:42)
[2022-09-14] MEDS: cloNIDine HCL 0.1 MG TAB PO SCH ×2 (08:43→22:37)
--- NOTE | 2022-09-14 10:11 | Hospitalist Progress Note ---
Date of Service September 14, 2022 Assessment & Plan (1) Hematemesis: Plan: - 1- 2 weeks of occasional hematemesis with acute worsening over the past day with ongoing alcohol use. - Suspect gastritis/duodenitis from recent alcohol use. - Hgb 14.7->12.4 ->12.2, patient hemodynamically stable, trend H/H. - Suspect elevated WBC is reactive from frequent vomiting, no evidence of infection, no history of SBP, no ascites on exam. - Initially was on PPI gtt, since transitioned to PPI IV BID. - Has received multiple agents for nausea, vomiting, will continue. - Start clear liquid diet. - GI consulted, appreciate their recommendations: trend H/H and consider EGD if worsening Hgb; case discussed with GI. - EGD 08/30: Reflux esophagitis, gastritis, no esophageal varices noted. (2) Alcohol use disorder: Plan: - Patient reports recent binge of alcohol, normally drinks range of 26 beers per day, has gone 1 or 2 days without drinking and denies any withdrawal symptoms such as shaking, seizures, hallucinations. No evidence of withdrawal on exam. - AWSS at risk protocol. - Received banana bag in ED, will continue with daily folate, thiamine supplementation. (3) Liver disease, alcoholic: Plan: - Documented history of hepatic steatosis on a previous CT scan. - T bili elevated to 1.9, without other LFT abnormalities. - Patient states he is cut down on his alcohol intake, recommend total cessation. (4) COPD (chronic obstructive pulmonary disease): Plan: - No evidence of acute exacerbation. - Continue home inhalers. Duoneb x1 for intermittent diffuse wheezing. (5) HTN (hypertension): Plan: - Continue clonidine, metoprolol. (6) GERD (gastroesophageal reflux disease): Plan: - On PO PPI, transition to IV PPI as above for suspected gastritis. (7) Hypomagnesemia: Plan: - Mg 1.4, replete with Mag Sulfate 4g IV. Plan - Tele status - SCDs for VTE PPx, holding chemo PPx given hematemesis. - Full code - clear liquid diet Admission and Anticipated Discharge Date Admission Date: September 13, 2022 Subjective Patient complaints of some throat discomfort from vomiting. No further episodes of vomiting at this time. No trouble breathing, some epigastric area abdominal pain, no other complaints. Review of Systems Review of Systems: All systems reviewed & are unremarkable except as noted in Subjective Physical Exam Constitutional: WD/WN, vitals as above Respiratory: expiratory wheezes diffuse throughout Cardiovascular: RRR, no murmur, no edema Gastrointestinal (Abdomen): normal bowel sounds, abdomen soft, mild epigastric tenderness, no rebound or guarding Skin: no rashes, warm and dry Psychiatric: A+Ox3, euthymic affect Results & Data Results & Data ([facility]) Vital Signs (Past 12 Hours) Vital Signs Pulse Resp BP Pulse Ox Pulse Ox O2 Del Method O2 Del Method 09/14/22 08:00 77 19 121/75 99 Room Air 09/14/22 07:30 76 18 117/83 98 Room Air 09/14/22 07:00 89 16 119/86 92 09/14/22 06:30 84 17 125/85 09/14/22 06:00 85 18 152/90 H 09/14/22 04:30 77 22 130/82 09/14/22 03:00 75 124/87 09/14/22 04:47 95 Room Air 09/14/22 04:10 97 Room Air 09/14/22 02:00 112/81 95 09/14/22 01:01 110/81 96 09/14/22 00:30 123/83 95 09/14/22 00:01 128/79 86 L 09/13/22 23:01 127/88 94 09/13/22 22:30 90 128/90 09/14/22 00:00 92 Nasal Cannula O2 Flow Rate O2 Flow Rate 09/14/22 08:00 09/14/22 07:30 09/14/22 07:00 09/14/22 06:30 09/14/22 06:00 09/14/22 04:30 09/14/22 03:00 09/14/22 04:47 09/14/22 04:10 2 09/14/22 02:00 09/14/22 01:01 09/14/22 00:30 09/14/22 00:01 09/13/22 23:01 09/13/22 22:30 09/14/22 00:00 2 PG Care Time/CCT Total # of Minutes Spent Total Time Spent with Patient: Total time spent is greater than 50% in coordination of care (as documented) at patient's floor/unit and/or counseling patient: Coding Level of Care Code 35487 SUB INP/OBS CARE MIN Diagnoses Hematemesis K92.0 Alcohol use disorder F19.90 Liver disease, alcoholic K70.9 COPD (chronic obstructive pulmonary disease) J44.9 HTN (hypertension) I10 GERD (gastroesophageal reflux disease) K21.9 Hypomagnesemia E83.42
--- NOTE | 2022-09-14 11:31 | Gastrointestinal Consultation ---
Date of Consultation September 14, 2022 Assessment & Plan (1) UGIB (upper gastrointestinal bleed): Patient with coffee-ground emesis, now resolved. History of esophagitis in 2020. Unclear if compliant with ongoing PPI therapy. H/H with initial drop of 2 gms, but now stable. Patient does not have any active bleeding at present. Discussed with Dr. Damian. Given resolution of abdominal discomfort & no ongoing bleeding at present, can continue with IV Protonix at the present time. Would give 40 mg IV BID and continue to monitor H/H and patient's symptoms. Given known history of esophagitis, if he continues to improve with conservative measures we can defer EGD to be done soon in the outpatient setting, but if patient bleeds again or H/H drops, would move forward with inpatient evaluation. Ok to advance to clear liquids at this time and monitor. History of Present Illness Reason for Consultation: ?UGI bleed Attending Physician: Afsaneh Osorio, DO History of Present Illness Patient is a 47 yo male with PMH of alcohol abuse, COPD, GERD, HTN, and history of PE 2 years ago who presented to the ED with vomiting and lightheadedness. The patient has a history of significant alcohol abuse. In 2020, he underwent an EGD for concerns of an upper GI bleed and was noted to have esophagitis. He has a history of hepatic steatosis on CT imaging from 2020 as well. He notes that when he drinks a lot at home, he will have some visible blood in his emesis. Upon presentation he did have an episode of coffee-ground emesis. He notes that he had upper abdominal pain when initially hospitalized, but this has subsided since initiation of PPI therapy. It is unclear if he is taking the PPI he is prescribed at home. He notes he is hungry at present. He reports he is drinking "less than before" but does not quantify that further. Upon presentation to the hospital, he had an H/H of 14.7/40.8. He then declined to 12.2/34.8. No further hematemesis. No melena or hematochezia. Denies NSAID use or pertinent family history. Also notable is T bili 2.0, no other LFT derangements and has never had a direct bili obtained, no electrolyte abnormalities, renal function at baseline. Lipase 13. Chest/abdomen XR shows no acute disease process, nonobstructive abdominal bowel gas pattern is noted. Allergies Allergy/AdvReac Type Severity Reaction Status Date / Time No Known Allergies Allergy Mild Verified 08/29/21 13:44 Home Medications Medication Instructions Recorded Confirmed Type multivitamin 1 tab PO QAM 07/03/20 08/29/21 History calcium carb 1,200 mg-mag hydrox 10 ml PO AC #355 mL 04/18/21 08/29/21 Rx 270 mg-simeth 80 mg/10 mL oral susp (Mylanta Coat-Cool) nicotine 14 mg/24 hr daily 1 patch transdermal DAILY #28 ea 07/13/21 08/29/21 Rx transdermal patch nicotine 21 mg/24 hr daily 1 patch transdermal DAILY #28 ea 07/13/21 08/29/21 Rx transdermal patch nicotine 7 mg/24 hr daily 1 patch transdermal Q24H #28 ea 07/13/21 08/29/21 Rx transdermal patch albuterol sulfate 90 mcg/actuation 2 puff inhalation Q6H PRN 07/25/21 08/29/21 Rx aerosol inhaler Shortness Of Breath Or Wheezing #18 grams amitriptyline 25 mg tablet 25 mg PO DAILY #30 tabs 08/29/21 08/29/21 Rx clonidine HCl 0.1 mg tablet 0.1 mg PO BID #60 tabs 12/15/21 Rx metoprolol tartrate 25 mg tablet 25 mg PO BID PRN palpitations #60 12/15/21 Rx tabs pantoprazole 40 mg tablet,delayed 40 mg PO DAILY #30 tabs 12/15/21 Rx release (Protonix) umeclidinium 62.5 mcg-vilanterol 1 ea inhalation QAM #60 ea 12/15/21 Rx 25 mcg/actuation powdr for inhalation (Anoro Ellipta) Patient History Medical History Alcohol abuse Alcohol intoxication Closed cervical spine fracture (2011) COPD with emphysema Current smoker GERD (gastroesophageal reflux disease) Heart palpitations follows with Dr. Jean HTN (hypertension) Labile hypertension Liver disease, alcoholic Pulmonary embolism (06/2020) was on blood thinners was taken off roughly a few months now Surgical History History of esophagogastroduodenoscopy (EGD) 04/15/21 Dr. Juan Damian at [facility] History of fusion of cervical spine History of tooth extraction History of wisdom tooth extraction Family History Aunt Myocardial infarction Breast cancer Uncle Myocardial infarction Brother Myocardial infarction Other No family history of adverse response to anesthesia Denies family history of Ovarian cancer Prostate cancer Colorectal cancer Social History Smoking Status: Current every day smoker Tobacco Type: Cigarettes packs per day: 0.5; Cigarettes Per Day: 15; Second Hand Exposure: Yes; Do You Dip or Chew Tobacco: No; Hx Alcohol Use: Yes Alcohol type: beer Alcohol Intake Frequency: 2-3 x/Week Hx Substance Use: No Preferred Language: Romansh Communication Ability: Effective 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 Beliefs That Will Affect Care: None marital status: Current Living Situation: Significant Other Current Living Situation Comment: lives with dtr current occupational status: employed Feels Safe at Home: Yes Safety Concerns: Feels Safe At This Time caffeine: Yes Dental Care, Regularly: No Physical Activity Frequency: Daily Seatbelt Use: always Sunscreen Use: No Assistive Devices: Glasses Review of Systems Constitutional: no chills Respiratory: no cough and no dyspnea Gastrointestinal: + coffee ground emesis (since resolved) Integumentary: no problem reported Psychiatric: + substance abuse Physical Exam Constitutional: well developed Respiratory: normal respiratory effort Cardiovascular: Rate/Rhythm: regular rate Gastrointestinal (Abdomen): normal bowel sounds, soft, nontender, no hepatosplenomegaly Musculoskeletal: Head/Neck/Chest: normocephalic Psychiatric: Orientation: alert and oriented x 3 Results & Data ([facility]) Vital Signs (Past 12 Hours) Vital Signs Pulse Resp BP Pulse Ox Pulse Ox O2 Del Method O2 Del Method 09/14/22 08:00 77 19 121/75 99 Room Air 09/14/22 07:30 76 18 117/83 98 Room Air 09/14/22 07:00 89 16 119/86 92 09/14/22 06:30 84 17 125/85 09/14/22 06:00 85 18 152/90 H 09/14/22 04:30 77 22 130/82 09/14/22 03:00 75 124/87 09/14/22 04:47 95 Room Air 09/14/22 04:10 97 Room Air 09/14/22 02:00 112/81 95 09/14/22 01:01 110/81 96 09/14/22 00:30 123/83 95 09/14/22 00:01 128/79 86 L 09/14/22 00:00 92 Nasal Cannula O2 Flow Rate O2 Flow Rate 09/14/22 08:00 09/14/22 07:30 09/14/22 07:00 09/14/22 06:30 09/14/22 06:00 09/14/22 04:30 09/14/22 03:00 09/14/22 04:47 09/14/22 04:10 2 09/14/22 02:00 09/14/22 01:01 09/14/22 00:30 09/14/22 00:01 09/14/22 00:00 2 PG Care Time/CCT Total # of Minutes Spent Total Time Spent with Patient: Total time spent is greater than 50% in coordination of care (as documented) at patient's floor/unit and/or counseling patient: Coding Level of Care Code INP/OBS CONSULT LVL 4, 60 MIN Diagnoses UGIB (upper gastrointestinal bleed) K92.2
[2022-09-14] MEDS ORDERED: COUGH DROP (SUGAR FREE) LOZ 24 LOZ/1 BOX BUCCAL STA (19:37)
[2022-09-14] MEDS ORDERED: guaiFENesin/DEXTROM SYRUP 100MG/10MG 5ML UDC PO PRN (20:17)
--- NOTE | 2022-09-14 21:26 | Electrocardiogram Report ---
Test Reason : Blood Pressure : / mmHG Vent. Rate : 099 BPM Atrial Rate : 099 BPM P-R Int : 112 ms QRS Dur : 088 ms QT Int : 358 ms P-R-T Axes : 093 082 072 degrees QTc Int : 459 ms Poor data quality, interpretation may be adversely affected Normal sinus rhythm with sinus arrhythmia Possible Left atrial enlargement Borderline ECG When compared with ECG of 14-APR-2021 16:35, No significant change was found Confirmed by Charly Chambers ([id number]) on 09/14/2022 9:26:27 PM Referred By: REFERRED SELF Confirmed By:Charly Chambers
[2022-09-14] MEDS ORDERED: ALBUT/IPRATROP 3MG/0.5MG NEB 3 ML VIAL NEB ONE (22:35)
[2022-09-14] MEDS: PANTOprazole 40 MG in SYRINGE 0 ML IV SCH (22:37)
[2022-09-14] MEDS: MAGNESIUM SULFATE / D5W 1 GM/100 ML BAG IV SCH (23:59)
[2022-09-15] MEDS: MAGNESIUM SULFATE / D5W 1 GM/100 ML BAG IV SCH ×3 (01:53→05:32)
[2022-09-15 07:14] LABS: Hematocrit (blood only) 34.7 % (40.1-51.0); Hemoglobin 12.3 g/dl (14.0-18.0)
[2022-09-15 07:46] LABS: Albumin Globulin Ratio 1.1 (0.9-2); Albumin Level 3.2 gm/dl (3.4-5.0); Bilirubin,Total 2.8 mg/dl (0.2-1.0); Calcium 7.6 mg/dl (8.5-10.1); Est GFR (African American) 122.4 ml/min; Est GFR (Non-African American) 105.6 ml/min; Globulin 2.8 gm/dl (2.5-4.0); Magnesium 2.2 mg/dl (1.7-2.4); Potassium 3.4 mmol/L (3.5-5.1)
[2022-09-15] MEDS: PANTOprazole 40 MG in SYRINGE 0 ML IV SCH ×2 (08:00→20:10)
[2022-09-15] MEDS: cloNIDine HCL 0.1 MG TAB PO SCH ×2 (08:12→20:10)
[2022-09-15] MEDS: UMECLIDINIUM/VILANTEROL 62.5/25MCG 7 PUFFS/INHALER INH SCH (08:12)
[2022-09-15] MEDS: FOLIC ACID 1 MG TAB PO SCH (08:12)
[2022-09-15] MEDS: AMITRIPTYLINE HCL 25 MG TAB PO SCH (08:12)
[2022-09-15] MEDS: NICOTINE 14 MG/24 HR PATCH TD SCH (08:12)
[2022-09-15] MEDS: THIAMINE HCL 100 MG TAB PO SCH (08:12)
--- NOTE | 2022-09-15 11:15 | Gastroenterology Progress Note ---
Date of Service September 15, 2022 Assessment & Plan (1) UGIB (upper gastrointestinal bleed): Plan: Patient is a 47 yo male with history of esophagitis who presented with coffee- ground emesis. He is no longer bleeding since initiation of PPI therapy. His H/H is stable at 12.3/34.7. He notes that he feels that he needs a nebulizer treatment due to a cough that is worsening beyond his baseline. Given this, we discussed the risks vs benefits of deferring an EGD to the outpatient setting. We discussed compliance with PPI therapy. Would defer decisions regarding nebulizer to primary team. If no ongoing bleeding we can defer EGD to the outpatient setting, however if his H/H worsens or he begins to bleed again, would need to move forward. Continue IV PPI therapy at present. Admission and Anticipated Discharge Date Admission Date: September 13, 2022 Subjective Patient is a 47 yo male with coffee-ground emesis. Patient notes that after our conversation yesterday he can recognize that he was not taking his PPI as an outpatient which was prescribed for esophagitis. He notes that he is feeling better today. He denies hematemesis, melena, coffee-ground emesis. Stool is unremarkable. His H/H remained stable overnight at 12.3/34.7. He notes a productive cough and says that this is a new change beyond his baseline COPD. He is requesting a nebulizer treatment. Review of Systems Constitutional: no fever and no chills Respiratory: no cough and no dyspnea Cardiovascular: no chest pain Gastrointestinal: no abdominal pain, no coffee ground emesis, no hematemesis, no blood in stools and no melena Physical Exam Constitutional: well developed Respiratory: normal respiratory effort Cardiovascular: Rate/Rhythm: regular rate Gastrointestinal (Abdomen): normal bowel sounds, soft, nontender, no hepatosplenomegaly Musculoskeletal: Head/Neck/Chest: normocephalic Psychiatric: Orientation: alert and oriented x 3 Results & Data Results & Data ([facility]) Vital Signs (Past 12 Hours) Vital Signs Temp Pulse Resp BP Pulse Ox O2 Del Method 09/15/22 08:15 Room Air 09/15/22 07:12 36.6 C 84 16 130/89 92 Room Air 09/15/22 04:49 37.3 C 81 20 117/72 93 Room Air 09/14/22 23:18 36.5 C 98 H 16 139/90 93 Room Air PG Care Time/CCT Total # of Minutes Spent Total Time Spent with Patient: Total time spent is greater than 50% in coordination of care (as documented) at patient's floor/unit and/or counseling patient: Coding Level of Care Code 58184 SUB INP/OBS CARE 3/50MIN Diagnoses UGIB (upper gastrointestinal bleed) K92.2
--- NOTE | 2022-09-15 11:29 | Hospitalist Progress Note ---
Date of Service September 15, 2022 Assessment & Plan (1) Hematemesis: Plan: -Patient was admitted to hospital on account of hematemesis, which got worse - Suspect gastritis/duodenitis from recent alcohol use. - Hgb stable - Initially was on PPI gtt, since transitioned to PPI IV BID. - Has received multiple agents for nausea, vomiting, will continue. However, still unable to tolerate clears, still feels nauseous - GI consulted, appreciate their recommendations, plan is possible outpatient EGD if no more hematemesis here in the hospital - EGD done on 08/30 showed Reflux esophagitis, gastritis, no esophageal varices noted. -Continue to monitor, advance diet as tolerated (2) Alcohol use disorder: Plan: - Patient reports recent binge of alcohol, normally drinks range of 26 beers per day, has gone 1 or 2 days without drinking and denies any withdrawal symptoms such as shaking, seizures, hallucinations. No evidence of withdrawal on exam. - AWSS at risk protocol. - Received banana bag in ED, will continue with daily folate, thiamine supplementation. (3) Liver disease, alcoholic: Plan: - Documented history of hepatic steatosis on a previous CT scan. - T bili elevated to 1.9, without other LFT abnormalities. - Patient states he is cut down on his alcohol intake, recommend total cessation. (4) COPD (chronic obstructive pulmonary disease): Plan: - No evidence of acute exacerbation. - Continue home inhalers. Duoneb x1 for intermittent diffuse wheezing. (5) HTN (hypertension): Plan: - Continue clonidine, metoprolol. (6) GERD (gastroesophageal reflux disease): Plan: - On PO PPI, transition to IV PPI as above for suspected gastritis. (7) Hypomagnesemia: Plan: - replace Plan - Continue hospitalization until he tolerates diet - SCDs for VTE PPx, holding chemo PPx given hematemesis. - Full code - clear liquid diet Admission and Anticipated Discharge Date Admission Date: September 13, 2022 Subjective patient seen and examined, no more hematemesis, however, patient still unable to tolerate clears Review of Systems Review of Systems: The patient is awake, alert and oriented 3, well developed and well nourished, normocephalic and atraumatic, lying in bed and in no acute distress. HEENT--PERRL, EOMI, mucous membranes and oropharynx mildly dry Neck--supple. No JVD. No bruits. Thyroid normal, trachea midline, no adenopathy. Heart--normal S1 and S2. No murmurs, rubs or gallops. Lungs--clear bilaterally, no respiratory distress, no accessory muscle use. Abdomen--normal bowel sounds and soft. Mild epigastric and left sided abdominal pain Extremities--no cyanosis or clubbing. No edema. Dermatologic--normal skin turgor, normal color, no abnormal lymph nodes, no rash. Neurologic--cranial nerves II through XII grossly intact. Rheumatologic--normal range of motion. Psychiatric--normal affect. Physical Exam Physical Exam: The patient is awake, alert and oriented 3, well developed and well nourished, normocephalic and atraumatic, lying in bed and in no acute distress. HEENT--PERRL, EOMI, mucous membranes and oropharynx mildly dry Neck--supple. No JVD. No bruits. Thyroid normal, trachea midline, no adenopathy. Heart--normal S1 and S2. No murmurs, rubs or gallops. Lungs--clear bilaterally, no respiratory distress, no accessory muscle use. Abdomen--normal bowel sounds and soft. Mild epigastric and left sided abdominal pain Extremities--no cyanosis or clubbing. No edema. Dermatologic--normal skin turgor, normal color, no abnormal lymph nodes, no rash. Neurologic--cranial nerves II through XII grossly intact. Rheumatologic--normal range of motion. Psychiatric--normal affect. Results & Data Results & Data ([facility]) Vital Signs (Past 12 Hours) Vital Signs Temp Pulse Resp BP Pulse Ox O2 Del Method 09/15/22 08:15 Room Air 09/15/22 07:12 97.9 F 84 16 130/89 92 Room Air 09/15/22 04:49 99.1 F 81 20 117/72 93 Room Air PG Care Time/CCT Total # of Minutes Spent Total Time Spent with Patient: Total time spent is greater than 50% in coordination of care (as documented) at patient's floor/unit and/or counseling patient: Coding Level of Care Code 21631 SUB INP/OBS CARE 2/35MIN Medical Decision Making Moderate Complexity Diagnoses Hematemesis K92.0 Alcohol use disorder F19.90 Liver disease, alcoholic K70.9 COPD (chronic obstructive pulmonary disease) J44.9 HTN (hypertension) I10 GERD (gastroesophageal reflux disease) K21.9 Hypomagnesemia E83.42 CPT Codes SUBSEQUENT HOSP INP/OBS CARE LVL 2, 35 MIN - 52831 ([id number]) Time Spent (min) 35
[2022-09-15] MEDS: SUCRALFATE 1 GM/10 ML UDC PO SCH ×3 (13:17→20:10)
[2022-09-15] MEDS: FAMOTIDINE 20 MG TAB PO SCH (20:10)
[2022-09-16 06:45] LABS: Hematocrit (blood only) 33.7 % (40.1-51.0); Hemoglobin 12.1 g/dl (14.0-18.0); Mean Corpuscular Hemoglobin 33.7 pg (25.0-34.0); Mean Corpuscular Hgb Conc 35.9 g/dL (32.0-36.0); Mean Corpuscular Volume 93.9 fL (80.0-100.0); Mean Platelet Volume 10.5 fL (9.4-12.4); Platelet Count 163 K/uL (130-400); RDW Coefficient of Variation 11.6 % (11.5-14.5); RDW Standard Deviation 39.9 fL (36.4-46.3); Red Blood Count 3.59 M/uL (4.63-6.08); White Blood Count 5.32 K/ul (4.8-10.8)
[2022-09-16 07:12] LABS: BUN Creatinine Ratio 10.1 (10-20); Calcium 7.9 mg/dl (8.5-10.1); Creatinine Clr Calc Pharmacy 98.8 ml/min; Est GFR (African American) 123.1 ml/min; Est GFR (Non-African American) 106.2 ml/min; Potassium 3.5 mmol/L (3.5-5.1)
[2022-09-16] MEDS: PANTOprazole 40 MG in SYRINGE 0 ML IV SCH (09:21)
[2022-09-16] MEDS: UMECLIDINIUM/VILANTEROL 62.5/25MCG 7 PUFFS/INHALER INH SCH (09:22)
[2022-09-16] MEDS: FAMOTIDINE 20 MG TAB PO SCH (09:22)
[2022-09-16] MEDS: NICOTINE 14 MG/24 HR PATCH TD SCH (09:22)
[2022-09-16] MEDS: AMITRIPTYLINE HCL 25 MG TAB PO SCH (09:22)
[2022-09-16] MEDS: THIAMINE HCL 100 MG TAB PO SCH (09:23)
[2022-09-16] MEDS: SUCRALFATE 1 GM/10 ML UDC PO SCH (09:23)
[2022-09-16] MEDS: FOLIC ACID 1 MG TAB PO SCH (09:23)
[2022-09-16] MEDS: cloNIDine HCL 0.1 MG TAB PO SCH (10:39)
--- NOTE | 2022-09-16 12:59 | Discharge Summary ---
Date of Service September 16, 2022 Admission HPI Per Admitting Provider Gerry Quintero is a 47-year-old male with a past medical history significant for alcohol abuse, COPD, GERD, hypertension and prior PE is presenting today with vomiting and lightheadedness. Patient has history of alcohol abuse and prior upper GI bleed about 1 year ago. States he has been drinking couple beers a day for the past couple weeks and has ongoing dark brown, coffee emesis that had been manageable up until today when it became much more frequent. He is visibly shaking in the room and actively vomiting, with a paint can full of coffee- ground emesis at the bedside. He is complaining of abdominal pain throughout, but worse in his upper abdomen. Does not radiate to the back. He has been unable to keep any food or drinks down over the past 12 hours. He has not had any fever or chills. States he has significantly cut down from drinking since his last hospitalization and has gone a day or 2 without alcohol recently without having any shakes, hallucinations, or seizures. Upon presentation, he is moderately hypertensive and borderline tachycardic, otherwise vital signs within normal limits. Labs notable for a white count of 13 with left shift, hemoglobin within normal limits and stable at 14.7. Also notable is T bili 2.0, no other LFT derangements, no electrolyte abnormalities, renal function at baseline. Lipase 13. Chest/abdomen XR shows no acute disease process, nonobstructive abdominal bowel gas pattern is noted Principal Diagnosis Gastritis Discharge Exam The patient is awake, alert and oriented 3, well developed and well nourished, normocephalic and atraumatic, lying in bed and in no acute distress. HEENT--PERRL, EOMI, mucous membranes and oropharynx mildly dry Neck--supple. No JVD. No bruits. Thyroid normal, trachea midline, no adenopathy. Heart--normal S1 and S2. No murmurs, rubs or gallops. Lungs--clear bilaterally, no respiratory distress, no accessory muscle use. Abdomen--normal bowel sounds and soft. Mild epigastric and left sided abdominal pain Extremities--no cyanosis or clubbing. No edema. Dermatologic--normal skin turgor, normal color, no abnormal lymph nodes, no rash. Neurologic--cranial nerves II through XII grossly intact. Rheumatologic--normal range of motion. Psychiatric--normal affect. Discharge Data Allergies Allergy/AdvReac Type Severity Reaction Status Date / Time No Known Allergies Allergy Mild Verified 08/29/21 13:44 Consultations 09/13/22 17:07 ED Decision to Admit Stat 09/13/22 18:29 Consult Gastroenterology Routine Hospital Course (1) Hematemesis: -Patient was admitted to hospital on account of hematemesis, which got worse - Suspect gastritis/duodenitis from recent alcohol use. - Hgb stable - Initially was on PPI gtt, since transitioned to PPI IV BID. - Has received multiple agents for nausea, vomiting, will continue. However, still unable to tolerate clears, still feels nauseous - GI consulted, appreciate their recommendations, plan is possible outpatient EGD if no more hematemesis here in the hospital - EGD done on 08/30 showed Reflux esophagitis, gastritis, no esophageal varices noted. -Continue to monitor, advance diet as tolerated (2) Alcohol use disorder: - Patient reports recent binge of alcohol, normally drinks range of 26 beers per day, has gone 1 or 2 days without drinking and denies any withdrawal symptoms such as shaking, seizures, hallucinations. No evidence of withdrawal on exam. - AWSS at risk protocol. - Received banana bag in ED, will continue with daily folate, thiamine supplementation. (3) Liver disease, alcoholic: - Documented history of hepatic steatosis on a previous CT scan. - T bili elevated to 1.9, without other LFT abnormalities. - Patient states he is cut down on his alcohol intake, recommend total cessation. (4) COPD (chronic obstructive pulmonary disease): - No evidence of acute exacerbation. - Continue home inhalers. Duoneb x1 for intermittent diffuse wheezing. (5) HTN (hypertension): - Continue clonidine, metoprolol. (6) GERD (gastroesophageal reflux disease): - On PO PPI, transition to IV PPI as above for suspected gastritis. (7) Hypomagnesemia: - replace Plan - Continue hospitalization until he tolerates diet - SCDs for VTE PPx, holding chemo PPx given hematemesis. - Full code - clear liquid diet Total Time Total Time Spent Total Time Spent (In Minutes): 35 Discharge Plan Discharge Items Patient Disposition: Home - Self-Care Reason For Visit: GASTRITIS, ALCOHOL WITHDRAWAL Discharge Diagnosis: Hematemesis Activity: Resume your previous activity Non-emergency contact: Primary Care Provider and Commercial Interior Designer Call non-emergency contact if: you have any medication questions Follow-up/Referrals: Eddy Wylie, [Primary Care Provider] - Diet: Regular Addtl Attending Provider Instructions: please make appointment to follow up with your tuyere fitter Pending Studies at Discharge: No Stand-Alone Forms: My [facility], Smoking Cessation Medications and DC Order Prescriptions: Continued nicotine 21 mg/24 hr patch 24 hour 1 patch transdermal DAILY Qty: 28 0RF nicotine 14 mg/24 hr patch 24 hour 1 patch transdermal DAILY Qty: 28 0RF Rx Instructions: start after 21mg patches nicotine 7 mg/24 hr patch 24 hour 1 patch transdermal Q24H Qty: 28 3RF Rx Instructions: start after 14mg patches clonidine HCl 0.1 mg tablet 0.1 mg PO BID Qty: 60 11RF metoprolol tartrate 25 mg tablet 25 mg PO BID PRN (Reason: palpitations) Qty: 60 11RF pantoprazole [Protonix] 40 mg tablet,delayed release (DR/EC) 40 mg PO DAILY Qty: 30 11RF Anoro Ellipta 62.5-25 mcg/actuation blister with device 1 ea INHALATION QAM Qty: 60 11RF albuterol sulfate 90 mcg/actuation HFA aerosol inhaler 2 puff inhalation Q6H PRN (Reason: Shortness Of Breath Or Wheezing) Qty: 18 3RF amitriptyline 25 mg tablet 25 mg PO DAILY Qty: 30 5RF Mylanta Coat-Cool 1,200 mg-270 mg -80 mg/10 mL suspension 10 ml PO AC Qty: 355 0RF Label Comments: currently not taking, ran out multivitamin Tablet 1 tab PO QAM Discharge Orders: Discharge Order (Routine); Ordered 09/16/22 Ordered By: Miriam Arredondo Admission Data Admit Date/Time: 09/13/22 17:41 Attending Provider: Miriam Arredondo Admit Provider: Prasanth Carmichael Primary Care Provider: Eddy Wylie Other Providers: Prasanth Carmichael ; Juan Damina Coding Level of Care Code HOSP INP/OBS DISCH >30 MIN Diagnoses Hematemesis K92.0 Alcohol use disorder F19.90 Liver disease, alcoholic K70.9 COPD (chronic obstructive pulmonary disease) J44.9 HTN (hypertension) I10 GERD (gastroesophageal reflux disease) K21.9 Hypomagnesemia E83.42 Time Spent (min) 35
== END 2022-09-16 14:12 | disposition home or self-care (01) | DRG 379 ==
LOC: ED 15:44 → EDINP 17:41 → SUATTDRO 17:41 → 2E 09-14 19:22

== ENCOUNTER 2023-04-09 21:29 | Inpatient (IN) ==
[2023-04-09] MEDS ORDERED: ONDANSETRON INJ 2 MG/ML 2 ML VIAL IV STA ×2 (21:37→23:33)
[2023-04-09] MEDS ORDERED: SODIUM CHLORIDE 0.9% 1000ML 1,000 ML IV ONE ×2 (22:09→23:33)
[2023-04-09] MEDS ORDERED: PANTOprazole 80 MG in DEXTROSE 5% 100 ML IV STA (22:09)
[2023-04-09] MEDS ORDERED: THIAMINE HCL 100 MG, FOLIC ACID 1 MG in SODIUM CHLORIDE 0.9% 1000ML 1,000 ML IV STA (22:09)
[2023-04-09] MEDS ORDERED: LORazepam 2 MG/1 ML VIAL IV STA ×2 (22:11→23:33)
--- NOTE | 2023-04-09 22:11 | Emergency Department Note ---
Impression & Plan Alcohol withdrawal, Gastrointestinal hemorrhage with hematemesis, Intractable nausea and vomiting, Acute dehydration ED Provider Note Name: CLEMENCIA SIBLEY Age: 47 Sex: M Arrives Via: Walk-In Informant: Patient, friend ED Provider: Jesus Santos MD Chief Complaint: Vomiting blood Impression: As per impressions above Medical Decision Makin-year-old male alcoholic arrives for evaluation of nausea vomiting over the last 2 days. He did stop drinking about 4 days ago and began vomiting thereafter. Patient arrives tachycardic hypertensive quite tremulous and is actively vomiting. Large amounts of bloody emesis noted. Quick review of chart reveals no evidence of varices on recent EGD earlier this year. Patient was given multiple rounds of Ativan for both withdrawal and nausea vomiting control. He was given IV fluids, thiamine. IV Protonix given. Initial labs relatively stable. He is not significantly acidotic at this time. He did have a bit of wheezing though no evidence of aspiration or infiltrate on chest x-ray. Given a DuoNeb with some improvement. After third round of Ativan is starting to calm down some and feel a lot better. Given the amount of blood in the clear withdrawal findings hospitalization indicated. At this point medical alcohol is 0. Lactic acid is within normal range and other lab counts are consistent with his history Prior Medical Record and Triage/Nursing Notes reviewed by Me Extensive chart review including previous hospitalization records and EGD findings Differentials:Alcohol withdrawal, gastroenteritis, upper GI bleed, esophageal varices, obstruction, ischemia, liver failure, electrolyte imbalance, many other pathologies considered Vital Signs: reviewed and remarkable for tachycardic and hypertensive Interventions: Ativan 2 mg IV, Ativan 1 mg IV x2, Zofran 4 mg IV x2, normal saline bolus 2 L IV, thiamine 100 mg IV, DuoNeb, Protonix 80 mg IV Labs:Reviewed labs as per chart by me Imagin view chest x-ray as per my informal interpretation there is no evidence of lobar infiltrate or aspiration event at this time. EKG:As per my interpretation. Indication tach arrhythmia. Sinus tachycardia 112 bpm QTc of 442. There is FL of 130. There is no ectopy nor overt ischemia. When compared to an EKG of September 13, 2022 there is no significant change. Cardiac/Tele Monitoring: Cardiac Monitoring: An Order was placed for continuous cardiac monitoring. The monitor shows a rate of 120 with a sinus tach rhythm. Consults:Dr Rodriguez of the [facility] service Plan: Disposition:Hospitalization. Condition: Fair History of Present Illness:47-year-old male arrives for evaluation of vomiting. Patient with a history of alcoholism but stopped drinking about 4 days ago. 2 days ago started becoming nauseous and shaky. Has been vomiting intractably since then. Emesis is bloody. This is similar to previous episodes of withdrawal. Patient notes that initially emesis was bile clear but after multiple rounds retching he eventually started having blood in it. Denies any specific chest pain shortness of breath or abdominal pain but is noting some burning in his throat from retching. Denies any fevers, chills. He does get lightheaded when standing. No falls, trauma, injuries. No blood thinner use. EGD about 9 months ago following similar episode showed esophagitis and gastritis but there was no varices at that time. Past History:Alcoholism, GERD, asthma Home Medications:albuterol inhaler Allergies:nkda Vitals:Blood Pressure: 160/120, Pulse 124, RR 25, T 36.8C, O2 97% on RA Physical Exam: GENERAL: Patient is unwell appearing and in moderate distress. Patient is tremulous and actively vomiting large clots of blood. EYES: No scleral icterus, unremarkable pupils. ENT: Mucous membranes moist, no nasal congestion. NECK: No masses appreciated, nomeningismus, trachea is midline. RESPIRATORY: Moderately dyspneic with diffuse wheezing CARDIOVASCULAR: Tachycardic.No murmurs, rubs, gallops appreciated. GASTROINTESTINAL: Abdomen soft, non-tender, no peritonitis.Bowel sounds positive.No masses appreciated. EXTREMITIES: Normal motion all extremities, no cyanosis, no edema. NEUROLOGIC: Alert and oriented, patient is quite tremulous but no focal neurologic deficit appreciated SKIN: No rash, no jaundice, no diaphoresis. PSYCH: Anxious GCS: 15 ED Course: Times/Reassessments: Multiple repeat evaluations patient throughout his stay. Gradually improving withdrawal findings and no further vomiting. Vitals improved nicely. Jesus Santos MD Past Med/Surg History Medical History Alcohol intoxication Closed cervical spine fracture (2011) Current smoker GERD (gastroesophageal reflux disease) Heart palpitations follows with Dr. Jean Hematemesis Labile hypertension Pulmonary embolism (06/2020) was on blood thinners was taken off roughly a few months now UGIB (upper gastrointestinal bleed) Surgical History History of esophagogastroduodenoscopy (EGD) 04/15/21 Dr. Juan Damian at [facility] History of fusion of cervical spine History of tooth extraction History of wisdom tooth extraction Family History Aunt Myocardial infarction Breast cancer Uncle Myocardial infarction Brother Myocardial infarction Other No family history of adverse response to anesthesia Denies family history of Ovarian cancer Prostate cancer Colorectal cancer Social History Smoking Status: Current every day smoker Tobacco Type: Cigarettes packs per day: 0.5; Cigarettes Per Day: 10; Second Hand Exposure: No; Do You Dip or Chew Tobacco: No; Tobacco Cessation Education Requested by Patient: No Hx Alcohol Use: Yes Alcohol type: beer Alcohol Intake Frequency: 2-3 x/Week Hx Substance Use: No Preferred Language: Greenlandic Communication Ability: Effective 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 Assembly Required: No Beliefs That Will Affect Care: None marital status: Current Living Situation: Family Current Living Situation Comment: Lives with daughter current occupational status: employed Other Information That Helps Us Care for You: No Feels Safe at Home: Yes Safety Concerns: Feels Safe At This Time caffeine: Yes Dental Care, Regularly: No Physical Activity Frequency: Daily Seatbelt Use: always Sunscreen Use: No Assistive Devices: None Allergies Allergies Allergy/AdvReac Type Severity Reaction Status Date / Time No Known Allergies Allergy Mild Verified 11/16/22 13:00 Home Meds Home Medications Medication Instructions Recorded Confirmed multivitamin 1 tab PO QAM 07/03/20 04/10/23 amitriptyline 25 mg tablet 25 mg PO HS 04/10/23 04/10/23 pantoprazole 40 mg tablet,delayed 40 mg PO HS 04/10/23 04/10/23 release (Protonix) Previous Rx's Medication Instructions Recorded calcium carb 1,200 mg-mag hydrox 10 ml PO AC #355 mL 04/18/21 270 mg-simeth 80 mg/10 mL oral susp (Mylanta Coat-Cool) albuterol sulfate 90 mcg/actuation 2 puff inhalation Q6H PRN 09/18/22 aerosol inhaler Shortness Of Breath Or Wheezing #18 grams clonidine HCl 0.1 mg tablet 0.1 mg PO BID #60 tabs 09/18/22 metoprolol tartrate 25 mg tablet 25 mg PO BID PRN palpitations #60 09/18/22 tabs umeclidinium 62.5 mcg-vilanterol 1 ea inhalation QAM #60 ea 11/16/22 25 mcg/actuation powdr for inhalation (Anoro Ellipta) varenicline 1 mg tablet 1 mg PO BID #56 tabs 11/16/22 Results & Data (ED) Vital Signs Vital Signs - 24 hr 04/09/23 21:31 04/09/23 22:03 04/09/23 22:22 Temperature 36.3 C L Temperature Source Temporal Artery Scan Pulse Rate 112 H 116 H Pulse Rate [Apical] 111 H Respiratory Rate 18 20 Respiratory Depth Normal Blood Pressure 160/96 H Blood Pressure [Left Arm] 191/130 H Blood Pressure Mean 117 Blood Pressure Mean [Left Arm] 150 Pulse Oximetry 93 96 Oxygen Delivery Method Room Air Room Air Oxygen Flow Rate Sepsis Recent Fever Within 48 Hours No Sepsis New/Unexplained Change in Mental Status N/A Sepsis Action Taken by Nursing No Action Required 04/09/23 23:24 04/09/23 23:24 Temperature Temperature Source Pulse Rate Pulse Rate [Apical] 111 H 116 H Respiratory Rate 20 19 Respiratory Depth Blood Pressure Blood Pressure [Left Arm] 164/114 H Blood Pressure Mean Blood Pressure Mean [Left Arm] 130 Pulse Oximetry 88 L 92 Oxygen Delivery Method Room Air Nasal Cannula Oxygen Flow Rate 2 Sepsis Recent Fever Within 48 Hours Sepsis New/Unexplained Change in Mental Status Sepsis Action Taken by Nursing Laboratory Data 04/09/23 21:55 04/09/23 21:55 Lab Results 04/09/23 04/09/23 04/09/23 Range/Units 21:55 21:55 21:55 WBC 13.38 H (4.8-10.8) K/ul RBC 4.85 (4.70-6.10) M/uL Hgb 16.4 (14.0-18.0) g/dl Hct 46.7 (42.0-52.0) % MCV 96.3 (80.0-100.0) fL MCH 33.8 (25.0-34.0) pg MCHC 35.1 (32.0-36.0) g/dL RDW Std Deviation 42.5 (36.4-46.3) fL RDW Coeff of Marguerite 11.9 (11.5-14.5) % Plt Count 308 (130-400) K/uL MPV 9.7 (9.4-12.4) fL Immature Gran % (Auto) 0.3 % Neut % (Auto) 82.8 % Lymph % (Auto) 10.3 % [place] % (Auto) 5.5 % Eos % (Auto) 0.4 % Baso % (Auto) 0.7 % Neut # (Auto) 11.07 H (1.40-6.50) K/uL Lymph # (Auto) 1.38 (1.2-3.4) K/uL [place] # (Auto) 0.73 H (0.11-0.59) K/uL Eos # (Auto) 0.06 (0-0.50) K/uL Baso # (Auto) 0.10 (0-0.2) K/uL Immature Gran # (Auto) 0.04 (0.01-0.20) K/uL PT 10.6 (9.0-12.0) Seconds INR 1.0 (0.9-1.1) APTT 26.5 (21.0-31.0) Seconds PTT Ratio 0.9 ABG pH (7.35-7.45) ABG pCO2 (35-46) mmHg ABG pO2 (80-95) mmHg ABG HCO3 (19-24) mmol/L ABG O2 Saturation (90-95) % ABG Base Excess (-9-1.8) mEq/L Ismael Test (Pos) Oxygen Given Sodium 136 (136-145) mmol/L Potassium 3.8 (3.5-5.1) mmol/L Chloride 96 L (98-107) mmol/L Carbon Dioxide 27 (21-32) mmol/L Anion Gap 13 H (3-11) BUN 11 (6-23) mg/dl Creatinine 1.19 (0.6-1.4) mg/dl Est Cr Clr Drug Dosing 71.7 ml/min Est GFR ( Amer) 83.2 ml/min Est GFR (Non-Af Amer) 71.8 ml/min BUN/Creatinine Ratio 9.2 L (10-20) Glucose 173 H (70-99(Fasting)) mg/dl Lactate Calcium 10.0 (8.6-10.3) mg/dl Total Bilirubin 2.4 H (0.2-1.0) mg/dl AST 33 (13-39) U/L ALT 31 (7-52) U/L Alkaline Phosphatase 79 (34-104) U/L Total Creatine Kinase 72 (30-223) U/L Total Protein 8.5 H (6.0-8.3) gm/dl Albumin 4.6 (3.4-5.0) gm/dl Globulin 3.9 (2.5-4.0) gm/dl Albumin/Globulin Ratio 1.2 (0.9-2) Lipase 12 (11-82) U/L Ethyl Alcohol mg/dL (<10.0) mg/dl 04/09/23 04/09/23 04/09/23 Range/Units 22:53 22:53 22:53 WBC (4.8-10.8) K/ul RBC (4.70-6.10) M/uL Hgb (14.0-18.0) g/dl Hct (42.0-52.0) % MCV (80.0-100.0) fL MCH (25.0-34.0) pg MCHC (32.0-36.0) g/dL RDW Std Deviation (36.4-46.3) fL RDW Coeff of Marguerite (11.5-14.5) % Plt Count (130-400) K/uL MPV (9.4-12.4) fL Immature Gran % (Auto) % Neut % (Auto) % Lymph % (Auto) % [place] % (Auto) % Eos % (Auto) % Baso % (Auto) % Neut # (Auto) (1.40-6.50) K/uL Lymph # (Auto) (1.2-3.4) K/uL [place] # (Auto) (0.11-0.59) K/uL Eos # (Auto) (0-0.50) K/uL Baso # (Auto) (0-0.2) K/uL Immature Gran # (Auto) (0.01-0.20) K/uL PT (9.0-12.0) Seconds INR (0.9-1.1) APTT (21.0-31.0) Seconds PTT Ratio ABG pH 7.48 H (7.35-7.45) ABG pCO2 42 (35-46) mmHg ABG pO2 68 L (80-95) mmHg ABG HCO3 31 H (19-24) mmol/L ABG O2 Saturation 95.2 H (90-95) % ABG Base Excess 7.0 H (-9-1.8) mEq/L Ismael Test POS (Pos) Oxygen Given RA Sodium (136-145) mmol/L Potassium (3.5-5.1) mmol/L Chloride (98-107) mmol/L Carbon Dioxide (21-32) mmol/L Anion Gap (3-11) BUN (6-23) mg/dl Creatinine (0.6-1.4) mg/dl Est Cr Clr Drug Dosing ml/min Est GFR ( Amer) ml/min Est GFR (Non-Af Amer) ml/min BUN/Creatinine Ratio (10-20) Glucose (70-99(Fasting)) mg/dl Lactate Cancelled Calcium (8.6-10.3) mg/dl Total Bilirubin (0.2-1.0) mg/dl AST (13-39) U/L ALT (7-52) U/L Alkaline Phosphatase (34-104) U/L Total Creatine Kinase (30-223) U/L Total Protein (6.0-8.3) gm/dl Albumin (3.4-5.0) gm/dl Globulin (2.5-4.0) gm/dl Albumin/Globulin Ratio (0.9-2) Lipase (11-82) U/L Ethyl Alcohol mg/dL < 10.0 (<10.0) mg/dl Administered Medications Albuterol (Albut/Ipratrop 3mg/0.5mg Neb 3 Ml Vial) 3 ml NEB Q2H PRN; Protocol PRN Reason: dyspnea Stop: 05/10/23 02:19 Last Admin: 04/10/23 15:22 Dose: 3 ml Documented By: TRAVIS Thiamine HCl 100 mg/ Syringe 10 mls @ 2 mls/min IV QAM KEMAR Stop: 08/31/23 08:59 Last Admin: 04/10/23 08:25 Dose: 2 mls/min Documented By: Folic Acid 1 mg/ Syringe 10 mls @ 5 mls/min IV QAM [facility] Stop: 05/10/23 08:59 Last Admin: 04/10/23 08:25 Dose: 5 mls/min Documented By: Piperacillin Sod/Tazobactam (Sod 4.5 gm/ Dextrose) 120 mls @ 30 mls/hr IV Q8H KEMAR; Protocol Stop: 04/17/23 07:59 Last Infusion: 04/10/23 12:41 Dose: 0 mls/hr Documented By: Admin: 04/10/23 08:24 Dose: 30 mls/hr Documented By: Acetaminophen (Ofirmev) 1,000 mg in 100 mls @ 400 mls/hr IV Q8H PRN PRN Reason: Pain or Fever Stop: 04/13/23 03:56 Last Admin: 04/10/23 15:24 Dose: 400 mls/hr Documented By: Pantoprazole Sodium 40 mg/ (Syringe) 10 mls @ 5 mls/min IV BID [facility] Stop: 05/10/23 08:59 Last Admin: 04/10/23 08:27 Dose: 5 mls/min Documented By: Insulin Aspart (Insulin Aspart Per Unit Charge) 0 units SC Q6 KEMAR Stop: 05/10/23 05:59 Last Admin: 04/10/23 11:40 Dose: Not Given Documented By: Co-signed By: YAMIL Admin: 04/10/23 05:48 Dose: Not Given Documented By: YORDAN Co-signed By: PRUDENCIO Metoprolol Tartrate (Metoprolol Tartrate 1 Mg/Ml Vial) 5 mg IV Q4 KEMAR Stop: 05/10/23 07:59 Last Admin: 04/10/23 12:44 Dose: 5 mg Documented By: Admin: 04/10/23 08:50 Dose: 5 mg Documented By: Ondansetron HCl (Ondansetron Inj 2 Mg/Ml 2 Ml Vial) 4 mg IV Q6H PRN PRN Reason: Nausea Stop: 05/10/23 02:19 Last Admin: 04/10/23 10:35 Dose: 4 mg Documented By: Discontinued Medications Albuterol (Albut/Ipratrop 3mg/0.5mg Neb 3 Ml Vial) 3 ml NEB NOW STA; Protocol Stop: 04/09/23 23:34 Last Admin: 04/09/23 23:55 Dose: 3 ml Documented By: Pantoprazole Sodium 80 mg/ (Dextrose) 120 mls @ 480 mls/hr IV ONE STA Stop: 04/09/23 22:23 Last Infusion: 04/09/23 23:42 Dose: 0 mls/hr Documented By: Admin: 04/09/23 23:21 Dose: 480 mls/hr Documented By: Thiamine HCl 100 mg/ Folic (Acid 1 mg/ Sodium Chloride) 1,001.2 mls @ 500 mls/hr IV .Q2H1M STA; Protocol Stop: 04/10/23 00:09 Last Infusion: 04/10/23 01:48 Dose: 0 mls/hr Documented By: Admin: 04/09/23 23:46 Dose: 500 mls/hr Documented By: Sodium Chloride (Nss 1000ml) 1,000 mls @ 999 mls/hr IV .Q1H1M ONE Stop: 04/09/23 23:09 Last Infusion: 04/09/23 23:28 Dose: 0 mls/hr Documented By: Admin: 04/09/23 22:25 Dose: 999 mls/hr Documented By: Sodium Chloride (Nss 1000ml) 1,000 mls @ 999 mls/hr IV .Q1H1M ONE Stop: 04/10/23 00:33 Last Infusion: 04/10/23 00:52 Dose: 0 mls/hr Documented By: Admin: 04/09/23 23:50 Dose: 999 mls/hr Documented By: Potassium Chloride/Sodium Chloride (Normal Saline W/20 Meq Kcl) 20 meq in 1,000 mls @ 150 mls/hr IV .Q6H40M KEMAR Stop: 05/10/23 02:19 Last Infusion: 04/10/23 08:46 Dose: 0 mls/hr Documented By: Admin: 04/10/23 03:27 Dose: 150 mls/hr Documented By: PRUDENCIO Acetaminophen (Ofirmev) 1,000 mg in 100 mls @ 400 mls/hr IV NOW STA Stop: 04/10/23 04:11 Last Infusion: 04/10/23 04:26 Dose: 0 mls/hr Documented By: Admin: 04/10/23 04:10 Dose: 400 mls/hr Documented By: YORDAN Piperacillin Sod/Tazobactam (Sod 4.5 gm/ Dextrose) 120 mls @ 240 mls/hr IV NOW ONE; Protocol Stop: 04/10/23 04:44 Last Infusion: 04/10/23 05:02 Dose: 0 mls/hr Documented By: Admin: 04/10/23 04:23 Dose: 240 mls/hr Documented By: YORDAN Lorazepam (Lorazepam 2 Mg/1 Ml Vial) 2 mg IV NOW STA Stop: 04/09/23 22:12 Last Admin: 04/09/23 22:25 Dose: 2 mg Documented By: Lorazepam (Lorazepam 2 Mg/1 Ml Vial) 1 mg IV NOW STA Stop: 04/09/23 23:34 Last Admin: 04/09/23 23:55 Dose: 1 mg Documented By: Lorazepam (Lorazepam 2 Mg/1 Ml Vial) 1 mg IV NOW STA Stop: 04/10/23 00:36 Last Admin: 04/10/23 00:58 Dose: 1 mg Documented By: Lorazepam (Lorazepam 2 Mg/1 Ml Vial) 3 mg IV ONCE PRN; Protocol PRN Reason: EtOH Withdrawal AWSS Score 10+ Last Admin: 04/10/23 02:44 Dose: 3 mg Documented By: YORDAN Metoprolol Tartrate (Metoprolol Tartrate 1 Mg/Ml Vial) 5 mg IV NOW STA Stop: 04/10/23 04:16 Last Admin: 04/10/23 04:21 Dose: 5 mg Documented By: YORDAN Ondansetron HCl (Ondansetron Inj 2 Mg/Ml 2 Ml Vial) 4 mg IV NOW STA Stop: 04/09/23 21:38 Last Admin: 04/09/23 21:50 Dose: 4 mg Documented By: DMITRIY Ondansetron HCl (Ondansetron Inj 2 Mg/Ml 2 Ml Vial) 4 mg IV NOW STA Stop: 04/09/23 23:34 Last Admin: 04/09/23 23:55 Dose: 4 mg Documented By: Imaging Data Radiologist's Impression: Chest X-Ray 04/09/23 22:14 SINGLE VIEW CHEST CLINICAL HISTORY: Vomiting. FINDINGS: 2 AP, portable, upright chest radiographs are compared to study dated 09/13/2022 and correlated with chest CT dated 07/18/2021. The cardiomediastinal silhouette is unremarkable. The lungs and pleural spaces are clear. No pneumothorax is seen. The bony thorax is grossly intact. Fusion hardware is noted in the lower cervical spine. IMPRESSION: No active disease in the chest. ACT 112: Negative or not required by law. Electronically signed by: Kelton Thomas M.D. 04/10/2023 7:48 AM KUB X-Ray 04/09/23 22:14 KUB CLINICAL HISTORY: Vomiting. FINDINGS: 2 AP, portable, supine abdominal radiographs are compared to study dated 09/13/2022 and correlated with abdominal CT dated 04/14/2021. There is a nonobstructed abdominal bowel gas pattern. No evidence of intraperitoneal free air is seen on these supine images. There are no abnormal abdominal calcifications. The bony structures appear intact. IMPRESSION: No acute abnormality is identified. Electronically signed by: Kelton Thomas M.D. 04/10/2023 8:08 AM Discharge Plan Visit Data Chief Complaint: Vomiting Stated Complaint: VOMITING BLOOD ED Provider: Jesus Santos Discharge Problem: Alcohol withdrawal, Gastrointestinal hemorrhage with hematemesis, Intractable nausea and vomiting, Acute dehydration Patient Disposition: Admitted As Inpatient Discharge Instructions Interventions: ED Discharge Assessment Last Done: 04/10/23 01:58
[2023-04-09 22:19] LABS: Basophils % (auto) 0.7 %; Eosinophils # (auto) 0.06 K/uL (0-0.50); Eosinophils % (auto) 0.4 %; Hematocrit (blood only) 46.7 % (42.0-52.0); Hemoglobin 16.4 g/dl (14.0-18.0); Immature Granulocytes # (auto) 0.04 K/uL (0.01-0.20); Immature Granulocytes % (auto) 0.3 %; Lymphocytes # (auto) 1.38 K/uL (1.2-3.4); Lymphocytes % (auto) 10.3 %; Mean Corpuscular Hemoglobin 33.8 pg (25.0-34.0); Mean Corpuscular Hgb Conc 35.1 g/dL (32.0-36.0); Mean Corpuscular Volume 96.3 fL (80.0-100.0); Mean Platelet Volume 9.7 fL (9.4-12.4); Monocytes # (auto) 0.73 K/uL (0.11-0.59); Monocytes % (auto) 5.5 %; Neutrophils # (auto) 11.07 K/uL (1.40-6.50); Neutrophils % (auto) 82.8 %; Platelet Count 308 K/uL (130-400); RDW Coefficient of Variation 11.9 % (11.5-14.5); RDW Standard Deviation 42.5 fL (36.4-46.3); Red Blood Count 4.85 M/uL (4.70-6.10); White Blood Count 13.38 K/ul (4.8-10.8)
[2023-04-09 22:29] LABS: Albumin Globulin Ratio 1.2 (0.9-2); Albumin Level 4.6 gm/dl (3.4-5.0); BUN Creatinine Ratio 9.2 (10-20); Bilirubin,Total 2.4 mg/dl (0.2-1.0); Creatinine Clr Calc Pharmacy 71.7 ml/min; Est GFR (African American) 83.2 ml/min; Est GFR (Non-African American) 71.8 ml/min; Globulin 3.9 gm/dl (2.5-4.0); Potassium 3.8 mmol/L (3.5-5.1); Total Protein 8.5 gm/dl (6.0-8.3)
[2023-04-09 22:39] LABS: Partial Thromboplastin Ratio 0.9; Partial Thromboplastin Time 26.5 Seconds (21.0-31.0); Prothrombin Time 10.6 Seconds (9.0-12.0)
[2023-04-09 23:15] LABS: HCO3 ABG 31 mmol/L (19-24); Oxygen Saturation ABG 95.2 % (90-95); PCO2 ABG 42 mmHg (35-46); PO2 ABG 68 mmHg (80-95); pH ABG 7.48 (7.35-7.45)
[2023-04-09 23:23] LABS: Allen Test POS (Pos)
[2023-04-09] MEDS ORDERED: ALBUT/IPRATROP 3MG/0.5MG NEB 3 ML VIAL NEB STA (23:33)
[2023-04-10] MEDS ORDERED: LORazepam 2 MG/1 ML VIAL IV STA (00:35)
--- NOTE | 2023-04-10 01:29 | History & Physical Report ---
Date of Service April 10, 2023 Assessment & Plan (1) Hematemesis: (2) UGIB (upper gastrointestinal bleed): (3) Esophagitis: (4) COPD (chronic obstructive pulmonary disease): (5) Alcohol use disorder: (6) HTN (hypertension): (7) GERD (gastroesophageal reflux disease): (8) Current smoker: (9) Liver disease, alcoholic: (10) Alcohol abuse: (11) Alcohol withdrawal: Plan Hematemesis/upper GI bleed/alcohol use disorder/esophagitis/no history of varices- Given pantoprazole 40 mg IV from the ED, will continue 40 mg IV every 12 hours Status post normal saline 2 L in ED, will continue IV fluids with normal saline plus KCl 20 mEq at 150 mils per hour Zofran 4 mg IV every 6 hours as needed NPO H&H every 6 hours CBC with differential, chemistry profile and magnesium every morning Consult gastroenterology Alcohol abuse/alcohol withdrawal- Admit to monitored bed Thiamine 100 mg IV daily Folic acid 1 mg IV daily AWSS protocol with IV Ativan Aspiration pneumonia/pneumonitis/COPD exacerbation- Zosyn 4.5 g IV every 8 hours DuoNebs every 2 hours as needed Continue usual inhalers Aspiration precautions Hypertension- Holding clonidine and metoprolol due to n.p.o. status Lopressor 5 mg IV every 4 hours, hold for heart rate less than 60 or systolic blood pressure less than 120 History of Present Illness Chief Complaint: The patient presents to the emergency department with alcohol abuse, concerns regarding alcohol withdrawal, with last use 3 days ago, and vomiting blood with difficulty breathing Primary Care Provider: Eddy Wylie DO The patient is a 47-year-old male with a past medical history including alcohol abuse, esophagitis, tobacco use disorder, COPD, peripheral neuropathy upper extremities, vitamin D deficiency, orthostasis, history of DVT/PE, acute upper GI bleeding, GERD, labile hypertension, COPD, and alcoholic liver disease. Patient presented to the emergency department with shortness of breath, hematemesis, last alcohol use about 3 days ago with concerns regarding alcohol withdrawal. From the ED the patient received the following: Protonix 80 mg IV, banana bag, normal saline 1 L x 2, lorazepam 2 mg then 1 mg IV x2, Zofran 4 mg IV and a DuoNeb. Significant laboratories: WBC 13.38, hemoglobin 16.4, hematocrit 46.7, glucose 173, total bilirubin 2.4 ABG: pH 7.48, PCO2 42, PO2 68, pulse ox 95.2% Allergies Allergy/AdvReac Type Severity Reaction Status Date / Time No Known Allergies Allergy Mild Verified 11/16/22 13:00 Home Medications Medication Instructions Recorded Confirmed Type multivitamin 1 tab PO QAM 07/03/20 04/10/23 History calcium carb 1,200 mg-mag hydrox 10 ml PO AC #355 mL 04/18/21 04/10/23 Rx 270 mg-simeth 80 mg/10 mL oral susp (Mylanta Coat-Cool) albuterol sulfate 90 mcg/actuation 2 puff inhalation Q6H PRN 09/18/22 04/10/23 Rx aerosol inhaler Shortness Of Breath Or Wheezing #18 grams clonidine HCl 0.1 mg tablet 0.1 mg PO BID #60 tabs 09/18/22 04/10/23 Rx metoprolol tartrate 25 mg tablet 25 mg PO BID PRN palpitations #60 09/18/22 04/10/23 Rx tabs umeclidinium 62.5 mcg-vilanterol 1 ea inhalation QAM #60 ea 11/16/22 04/10/23 Rx 25 mcg/actuation powdr for inhalation (Anoro Ellipta) varenicline 1 mg tablet 1 mg PO BID #56 tabs 11/16/22 04/10/23 Rx amitriptyline 25 mg tablet 25 mg PO HS 04/10/23 04/10/23 History pantoprazole 40 mg tablet,delayed 40 mg PO HS 04/10/23 04/10/23 History release (Protonix) Past Med/Surg History Medical History (Updated 04/10/23 @ 05:42 by Kvng Rodriguez MD) Alcohol intoxication Closed cervical spine fracture (2011) Current smoker GERD (gastroesophageal reflux disease) Heart palpitations follows with Dr. Jean Hematemesis Labile hypertension Pulmonary embolism (06/2020) was on blood thinners was taken off roughly a few months now UGIB (upper gastrointestinal bleed) Surgical History History of esophagogastroduodenoscopy (EGD) 04/15/21 Dr. Juan Damian at [facility] History of fusion of cervical spine History of tooth extraction History of wisdom tooth extraction Family History Aunt Myocardial infarction Breast cancer Uncle Myocardial infarction Brother Myocardial infarction Other No family history of adverse response to anesthesia Denies family history of Ovarian cancer Prostate cancer Colorectal cancer Social History Smoking Status: Current every day smoker Tobacco Type: Cigarettes packs per day: 0.5; Cigarettes Per Day: 10; Second Hand Exposure: No; Do You Dip or Chew Tobacco: No; Tobacco Cessation Education Requested by Patient: No Hx Alcohol Use: Yes Alcohol type: beer Alcohol Intake Frequency: 2-3 x/Week Hx Substance Use: No Preferred Language: Bulgarian Communication Ability: Effective Wheel Buffer Required: No Beliefs That Will Affect Care: None marital status: Current Living Situation: Family Current Living Situation Comment: Lives with daughter current occupational status: employed Other Information That Helps Us Care for You: No Feels Safe at Home: Yes Safety Concerns: Feels Safe At This Time caffeine: Yes Dental Care, Regularly: No Physical Activity Frequency: Daily Seatbelt Use: always Sunscreen Use: No Assistive Devices: Glasses Review of Systems Review of Systems: The patient denies chest pain, palpitations, lower extremity swelling, fevers, chills, sweats, blood in urine or stool, dysuria, urinary frequency or urgency, loss of consciousness, imbalance, focal or generalized weakness, numbness or tingling in arms or legs, back or neck pain, or night sweats. The review of systems is otherwise negative other than for that already noted above, and at least 10 systems have been reviewed. Physical Exam Physical Exam: The patient is awake, alert and oriented 3, well developed and well nourished, normocephalic and atraumatic, lying in bed and in no acute distress. HEENT--PERRL, EOMI, mucous membranes and oropharynx dry. Neck--supple. No JVD. No bruits. Thyroid normal, trachea midline, no adenopathy. Heart--normal S1 and S2. No murmurs, rubs or gallops. Lungs--coarse breath sounds bilaterally. Respiratory distress, no accessory muscle use. Rhonchorous cough Abdomen--normal bowel sounds and soft. Nontender. Nondistended, no hernias or masses, no organomegaly. Extremities--no cyanosis or clubbing. No edema. Dermatologic--normal skin turgor, normal color, no abnormal lymph nodes, no rash. Neurologic--cranial nerves II through XII grossly intact. Rheumatologic--normal range of motion. Psychiatric--normal affect. Results & Data Results & Data Vital Signs (Past 12 Hours) Vital Signs Temp Pulse Pulse Resp BP BP Pulse Ox 04/09/23 23:24 116 H 19 164/114 H 92 04/09/23 23:24 111 H 20 88 L 04/09/23 22:22 111 H 20 191/130 H 96 04/09/23 22:03 116 H 04/09/23 21:31 36.3 C L 112 H 18 160/96 H 93 O2 Del Method O2 Flow Rate 04/09/23 23:24 Nasal Cannula 2 04/09/23 23:24 Room Air 04/09/23 22:22 Room Air 04/09/23 22:03 04/09/23 21:31 Room Air Laboratory Results Laboratory Results WBC 13.38 K/ul (4.8-10.8) H 04/09/23 21:55 RBC 4.85 M/uL (4.70-6.10) 04/09/23 21:55 Hgb 16.4 g/dl (14.0-18.0) 04/09/23 21:55 Hct 46.7 % (42.0-52.0) 04/09/23 21:55 MCV 96.3 fL (80.0-100.0) 04/09/23 21:55 MCH 33.8 pg (25.0-34.0) 04/09/23 21:55 MCHC 35.1 g/dL (32.0-36.0) 04/09/23 21:55 RDW Std Deviation 42.5 fL (36.4-46.3) 04/09/23 21:55 RDW Coeff of Marguerite 11.9 % (11.5-14.5) 04/09/23 21:55 Plt Count 308 K/uL (130-400) 04/09/23 21:55 MPV 9.7 fL (9.4-12.4) 04/09/23 21:55 Immature Gran % (Auto) 0.3 % 04/09/23 21:55 Neut % (Auto) 82.8 % 04/09/23 21:55 Lymph % (Auto) 10.3 % 04/09/23 21:55 [place] % (Auto) 5.5 % 04/09/23 21:55 Eos % (Auto) 0.4 % 04/09/23 21:55 Baso % (Auto) 0.7 % 04/09/23 21:55 Neut # (Auto) 11.07 K/uL (1.40-6.50) H 04/09/23 21:55 Lymph # (Auto) 1.38 K/uL (1.2-3.4) 04/09/23 21:55 [place] # (Auto) 0.73 K/uL (0.11-0.59) H 04/09/23 21:55 Eos # (Auto) 0.06 K/uL (0-0.50) 04/09/23 21:55 Baso # (Auto) 0.10 K/uL (0-0.2) 04/09/23 21:55 Immature Gran # (Auto) 0.04 K/uL (0.01-0.20) 04/09/23 21:55 PT 10.6 Seconds (9.0-12.0) 04/09/23 21:55 INR 1.0 (0.9-1.1) 04/09/23 21:55 APTT 26.5 Seconds (21.0-31.0) 04/09/23 21:55 PTT Ratio 0.9 04/09/23 21:55 ABG pH 7.48 (7.35-7.45) H 04/09/23 22:53 ABG pCO2 42 mmHg (35-46) 04/09/23 22:53 ABG pO2 68 mmHg (80-95) L 04/09/23 22:53 ABG HCO3 31 mmol/L (19-24) H 04/09/23 22:53 ABG O2 Saturation 95.2 % (90-95) H 04/09/23 22:53 ABG Base Excess 7.0 mEq/L (-9-1.8) H 04/09/23 22:53 Ismael Test POS (Pos) 04/09/23 22:53 Oxygen Given RA 04/09/23 22:53 Sodium 136 mmol/L (136-145) 04/09/23 21:55 Potassium 3.8 mmol/L (3.5-5.1) 04/09/23 21:55 Chloride 96 mmol/L (98-107) L 04/09/23 21:55 Carbon Dioxide 27 mmol/L (21-32) 04/09/23 21:55 Anion Gap 13 (3-11) H 04/09/23 21:55 BUN 11 mg/dl (6-23) 04/09/23 21:55 Creatinine 1.19 mg/dl (0.6-1.4) 04/09/23 21:55 Est Cr Clr Drug Dosing 71.7 ml/min 04/09/23 21:55 Est GFR ( Amer) 83.2 ml/min 04/09/23 21:55 Est GFR (Non-Af Amer) 71.8 ml/min 04/09/23 21:55 BUN/Creatinine Ratio 9.2 (10-20) L 04/09/23 21:55 Glucose 173 mg/dl (70-99(Fasting)) H 04/09/23 21:55 Lactate 1.9 mmol/L (0.4-2.0) 04/10/23 01:52 Calcium 10.0 mg/dl (8.6-10.3) 04/09/23 21:55 Total Bilirubin 2.4 mg/dl (0.2-1.0) H 04/09/23 21:55 AST 33 U/L (13-39) 04/09/23 21:55 ALT 31 U/L (7-52) 04/09/23 21:55 Alkaline Phosphatase 79 U/L (34-104) 04/09/23 21:55 Total Creatine Kinase 72 U/L (30-223) 04/09/23 21:55 Total Protein 8.5 gm/dl (6.0-8.3) H 04/09/23 21:55 Albumin 4.6 gm/dl (3.4-5.0) 04/09/23 21:55 Globulin 3.9 gm/dl (2.5-4.0) 04/09/23 21:55 Albumin/Globulin Ratio 1.2 (0.9-2) 04/09/23 21:55 Lipase 12 U/L (11-82) 04/09/23 21:55 Urine Color [place] 04/10/23 04:30 Urine Appearance Clear (Clear) 04/10/23 04:30 Urine pH 7.5 (4.5-7.5) 04/10/23 04:30 Ur Specific [place] 1.026 (1.000-1.030) 04/10/23 04:30 Urine Protein 1+ (Negative) H 04/10/23 04:30 Urine Glucose (UA) Negative (Negative) 04/10/23 04:30 Urine Ketones Trace (Negative) H 04/10/23 04:30 Urine Blood Negative (Negative) 04/10/23 04:30 Urine Nitrite Positive (Negative) A 04/10/23 04:30 Urine Bilirubin 1+ (Negative) H 04/10/23 04:30 Urine Urobilinogen Positive (Negative) H 04/10/23 04:30 Ur Leukocyte Esterase Trace (Negative) H 04/10/23 04:30 Urine WBC (Auto) 1-5 /hpf (0-5) 04/10/23 04:30 Urine RBC (Auto) 0-4 /hpf (0-4) 04/10/23 04:30 U Hyaline Cast (Auto) 0 /lpf (0-5) 04/10/23 04:30 U Epithel Cells (Auto) >30 /lpf (0-5) H 04/10/23 04:30 Urine Bacteria (Auto) Negative (Negative) 04/10/23 04:30 Ur Renal Epithelial Cell Not Reportable 04/10/23 04:30 Urine Mucus Present (None Prsent) A 04/10/23 04:30 Ethyl Alcohol mg/dL < 10.0 mg/dl (<10.0) 04/09/23 22:53 Blood Type O Negative 04/10/23 01:52 Antibody Screen NEGATIVE 04/10/23 01:52 Code Status & VTE Plan Code Status Full code VTE Prophylaxis Plan VTE Prophylaxis will be ordered: Yes PG Care Time/CCT Total # of Minutes Spent Total Time Spent with Patient: Total time spent is greater than 50% in coordination of care (as documented) at patient's floor/unit and/or counseling patient: Coding Level of Care Code 37598 INT INP/OBS CARE 3/75MIN Diagnoses Hematemesis K92.0 UGIB (upper gastrointestinal bleed) K92.2 Esophagitis K20.90 COPD (chronic obstructive pulmonary disease) J44.9 Alcohol use disorder F10.90 HTN (hypertension) I10 GERD (gastroesophageal reflux disease) K21.9 Current smoker F17.200 Liver disease, alcoholic K70.9 Alcohol abuse F10.10 Alcohol withdrawal F10.939
[2023-04-10] MEDS ORDERED: GLUCOSE 40% GEL 15 GM TUBE PO PRN (02:20)
[2023-04-10] MEDS ORDERED: GLUCOSE 10 TAB/TUBE PO PRN (02:20)
[2023-04-10] MEDS ORDERED: NSS + 20MEQ KCL 20 MEQ/1,000 ML BAG IV SCH (02:20)
[2023-04-10] MEDS ORDERED: CARBOHYDRATES FOR HYPOGLYCEMIA PO PRN (02:20)
[2023-04-10] MEDS ORDERED: LORazepam 2 MG/1 ML VIAL IV PRN ×2 (02:20)
[2023-04-10] MEDS ORDERED: DEXTROSE 50% 50 ML SYRINGE IV PRN (02:20)
[2023-04-10] MEDS ORDERED: Ativan IV Alcohol Withdrawal--Active Protocol IV PRN (02:20)
[2023-04-10] MEDS ORDERED: GLUCAGON FOR INJ 1 MG VIAL SQ PRN (02:20)
[2023-04-10] MEDS ORDERED: ACETAMINOPHEN 1,000 MG/100 ML VIAL IV STA (03:57)
[2023-04-10] MEDS ORDERED: PIPERACILLIN/TAZOBACTAM 4.5 GM (over 30 mins) IV ONE (04:15)
[2023-04-10] MEDS ORDERED: METOPROLOL TARTRATE 1 MG/ML VIAL IV STA (04:15)
[2023-04-10 05:00] LABS: Appearance Urine Clear (Clear); Bacteria Urine Automated Negative (Negative); Blood Urine Negative (Negative); Color Urine Orange; Epithelial Cell Urine Auto >30 /lpf (0-5); Glucose Urine UA Negative (Negative); Ketones Urine Trace (Negative); Leukocyte Esterase Urine Trace (Negative); Nitrite Urine Positive (Negative); RBC Urine Automated 0-4 /hpf (0-4); Specific Gravity Urine 1.026 (1.000-1.030); Urobilinogen Urine Positive (Negative); pH Urine 7.5 (4.5-7.5)
[2023-04-10 05:07] LABS: Bilirubin Urine 1+ (Negative); Protein Urine 1+ (Negative)
[2023-04-10 05:20] LABS: Mucus Urine Present (None Prsent)
[2023-04-10 05:21] LABS: Cast Urine Automated 0 /lpf (0-5)
[2023-04-10] MEDS: INSULIN ASPART PER UNIT CHARGE SC SCH ×4 (05:48→23:31)
[2023-04-10 06:44] LABS: Hematocrit (blood only) 36.8 % (42.0-52.0); Mean Corpuscular Hgb Conc 35.3 g/dL (32.0-36.0); Mean Corpuscular Volume 96.3 fL (80.0-100.0); Mean Platelet Volume 9.9 fL (9.4-12.4); Platelet Count 204 K/uL (130-400); RDW Standard Deviation 42.3 fL (36.4-46.3); Red Blood Count 3.82 M/uL (4.70-6.10); White Blood Count 16.79 K/ul (4.8-10.8)
[2023-04-10 06:48] LABS: Albumin Globulin Ratio 1.3 (0.9-2); Albumin Level 3.4 gm/dl (3.4-5.0); BUN Creatinine Ratio 11.7 (10-20); Bilirubin,Total 1.9 mg/dl (0.2-1.0); Calcium 8.4 mg/dl (8.6-10.3); Creatinine Clr Calc Pharmacy 76.8 ml/min; Est GFR (African American) 90.5 ml/min; Est GFR (Non-African American) 78.1 ml/min; Globulin 2.7 gm/dl (2.5-4.0); Potassium 3.9 mmol/L (3.5-5.1); Total Protein 6.1 gm/dl (6.0-8.3)
[2023-04-10 06:51] LABS: Basophils # (auto) 0.05 K/uL (0-0.2); Basophils % (auto) 0.3 %; Immature Granulocytes # (auto) 0.13 K/uL (0.01-0.20); Immature Granulocytes % (auto) 0.8 %; Lymphocytes # (auto) 0.76 K/uL (1.2-3.4); Lymphocytes % (auto) 4.5 %; Monocytes # (auto) 1.02 K/uL (0.11-0.59); Monocytes % (auto) 6.1 %; Neutrophils # (auto) 14.83 K/uL (1.40-6.50); Neutrophils % (auto) 88.3 %
[2023-04-10 07:28] LABS: Estimated Average Glucose 100 mg/dl; Hemoglobin A1C 5.1 % (4.5-5.6)
--- NOTE | 2023-04-10 07:50 | XRay Report ---
SINGLE VIEW CHEST CLINICAL HISTORY: Vomiting. FINDINGS: 2 AP, portable, upright chest radiographs are compared to study dated 09/13/2022 and correlat ed with chest CT dated 07/18/2021. The cardiomediastinal silhouette is unremarkable. The lungs and ple ural spaces are clear. No pneumothorax is seen. The bony thorax is grossly intact. Fusion hardware is noted in the lower cervical spine. IMPRESSION: No active disease in the chest. ACT 112: Negative or not required by law. Electronically signed by: Kelton Thomas M.D. 04/10/2023 7:48 AM
--- NOTE | 2023-04-10 08:09 | XRay Report ---
KUB CLINICAL HISTORY: Vomiting. FINDINGS: 2 AP, portable, supine abdominal radiographs are compared to study dated 09/13/2022 and corre lated with abdominal CT dated 04/14/2021. There is a nonobstructed abdominal bowel gas pattern. No evid ence of intraperitoneal free air is seen on these supine images. There are no abnormal abdominal calc ifications. The bony structures appear intact. IMPRESSION: No acute abnormality is identified. Electronically signed by: Kelton Thomas M.D. 04/10/2023 8:08 AM
[2023-04-10] MEDS: PIPERACILLIN/TAZOBACTAM 4.5 GM in DEXTROSE 5% 100 ML IV SCH ×3 (08:24→23:37)
[2023-04-10] MEDS: THIAMINE HCL 100 MG in SYRINGE 9 ML IV SCH (08:25)
[2023-04-10] MEDS: FOLIC ACID 1 MG in SYRINGE 9.8 ML IV SCH (08:25)
[2023-04-10] MEDS: PANTOprazole 40 MG in SYRINGE 0 ML IV SCH ×2 (08:27→19:33)
[2023-04-10 08:45] LABS: Hemoglobin 13.1 g/dl (14.0-18.0)
[2023-04-10] MEDS: METOPROLOL TARTRATE 1 MG/ML VIAL IV SCH ×5 (08:50→23:30)
[2023-04-10] MEDS: ONDANSETRON INJ 2 MG/ML 2 ML VIAL IV PRN (10:35)
--- NOTE | 2023-04-10 11:18 | Gastrointestinal Consultation ---
Date of Consultation April 10, 2023 Assessment & Plan (1) Hematemesis: Patient with a known history of esophagitis and prior episodes of hematemesis who is currently hospitalized with alcohol withdrawal. -IV Protonix 40 mg BID -Continue to monitor H/H -Continue treatment of alcohol withdrawal per primary team -When acute alcohol withdrawal resolves and patient becomes more cooperative with discussion, can have an EGD at that time. He does not have any ongoing overt GI bleeding at this time. Would keep him NPO after midnight just in case, and can re-evaluate in the AM, however documentation from hospitalists do note concern for aspiration pneumonitis vs COPD exacerbation so this may be best deferred pending clinical improvement. Supervising Physician Co-Signing Physician Notes Agree with LUDMILA Whittaker as above Abd: Soft, NT, ND, +BS Continue current therapy and supportive care Consider EGD in AM History of Present Illness Reason for Consultation: Hematemesis Attending Physician: Miriam Arredondo MD History of Present Illness Patient is a 47 yo male with PMH of alcohol abuse, esophagitis, tobacco use, COPD, peripheral neuropathy, prior DVT/PE, acute upper GI bleeding, GERD, labile hypertension, COPD, and alcoholic liver disease. He presented to [facility] after an episode of hematemesis and concern for alcohol withdrawal. Last alcohol intake was reportedly 3 days prior to presentation to our ED. Since arrival, he has had testing that indicates the following: * H/H 13.1/38.0 * BUN normal * WBC 16,790 * ABG pH of 7.48 * ABG pO2 68 * ABG pCO2 42 * ABG HCO3 31 * ABG O2 sats 95.2% * ABG Base excess 7.0 * INR 1.0 * Unremarkable electrolytes this AM * T bili 1.9 * Normal AST, ALT, Alk phos * Ethyl alcohol level <10 * Unremarkable KUB * CXR unremarkable Per nursing, patient did require 3 mg Ativan overnight. He is sleeping this morning and will not arouse for a conversation. No further hematemesis since presentation to the hospital. He has a history of an EGD in 2020 that indicated esophagitis. He was to have a repeat EGD in 2021, however he did not present to his outpatient evaluations to arrange this testing. His med list notes Protonix 40 mg QHS, but I am unclear if he is actually taking this. Allergies Allergy/AdvReac Type Severity Reaction Status Date / Time No Known Allergies Allergy Mild Verified 11/16/22 13:00 Home Medications Medication Instructions Recorded Confirmed Type multivitamin 1 tab PO QAM 07/03/20 04/10/23 History calcium carb 1,200 mg-mag hydrox 10 ml PO AC #355 mL 04/18/21 04/10/23 Rx 270 mg-simeth 80 mg/10 mL oral susp (Mylanta Coat-Cool) albuterol sulfate 90 mcg/actuation 2 puff inhalation Q6H PRN 09/18/22 04/10/23 Rx aerosol inhaler Shortness Of Breath Or Wheezing #18 grams clonidine HCl 0.1 mg tablet 0.1 mg PO BID #60 tabs 09/18/22 04/10/23 Rx metoprolol tartrate 25 mg tablet 25 mg PO BID PRN palpitations #60 09/18/22 04/10/23 Rx tabs umeclidinium 62.5 mcg-vilanterol 1 ea inhalation QAM #60 ea 11/16/22 04/10/23 Rx 25 mcg/actuation powdr for inhalation (Anoro Ellipta) varenicline 1 mg tablet 1 mg PO BID #56 tabs 11/16/22 04/10/23 Rx amitriptyline 25 mg tablet 25 mg PO HS 04/10/23 04/10/23 History pantoprazole 40 mg tablet,delayed 40 mg PO HS 04/10/23 04/10/23 History release (Protonix) Patient History Medical History Alcohol intoxication Closed cervical spine fracture (2011) Current smoker GERD (gastroesophageal reflux disease) Heart palpitations follows with Dr. Jean Hematemesis Labile hypertension Pulmonary embolism (06/2020) was on blood thinners was taken off roughly a few months now UGIB (upper gastrointestinal bleed) Surgical History History of esophagogastroduodenoscopy (EGD) 04/15/21 Dr. Juan Damian at [facility] History of fusion of cervical spine History of tooth extraction History of wisdom tooth extraction Family History Aunt Myocardial infarction Breast cancer Uncle Myocardial infarction Brother Myocardial infarction Other No family history of adverse response to anesthesia Denies family history of Ovarian cancer Prostate cancer Colorectal cancer Social History Smoking Status: Current every day smoker Tobacco Type: Cigarettes packs per day: 0.5; Cigarettes Per Day: 10; Second Hand Exposure: No; Do You Dip or Chew Tobacco: No; Tobacco Cessation Education Requested by Patient: No Hx Alcohol Use: Yes Alcohol type: beer Alcohol Intake Frequency: 2-3 x/Week Hx Substance Use: No Preferred Language: Pashto Communication Ability: Effective Ax Survey Worker Required: No Beliefs That Will Affect Care: None marital status: Current Living Situation: Family Current Living Situation Comment: Lives with daughter current occupational status: employed Other Information That Helps Us Care for You: No Feels Safe at Home: Yes Safety Concerns: Feels Safe At This Time caffeine: Yes Dental Care, Regularly: No Physical Activity Frequency: Daily Seatbelt Use: always Sunscreen Use: No Assistive Devices: None Review of Systems Review of Systems: Other (Patient did not participate in ROS due to alcohol withdrawal (received 3 mg Ativan overnight)) Physical Exam Constitutional: no acute distress Respiratory: normal respiratory effort Cardiovascular: Rate/Rhythm: regular rate Gastrointestinal (Abdomen): normal bowel sounds, soft, nontender, no hepatosplenomegaly Musculoskeletal: Head/Neck/Chest: normocephalic Results & Data Vital Signs (Past 12 Hours) Vital Signs Temp Pulse Pulse Resp BP BP Pulse Ox 04/10/23 09:05 80 123/88 04/10/23 08:50 91 H 129/90 04/10/23 07:47 36.3 C L 98 H 20 129/90 98 04/10/23 07:49 91 H 04/10/23 04:37 37.7 C H 04/10/23 04:36 104 H 131/89 04/10/23 04:34 109 H 133/85 04/10/23 04:21 123 H 143/94 H 04/10/23 02:30 04/10/23 03:43 38.8 C H 120 H 24 133/103 H 97 04/10/23 02:20 37.0 C 113 H 26 H 167/111 H 97 04/10/23 01:58 04/10/23 01:28 116 H 18 151/99 H 96 04/09/23 23:24 116 H 19 164/114 H 92 04/09/23 23:24 111 H 20 88 L O2 Del Method O2 Flow Rate 04/10/23 09:05 04/10/23 08:50 04/10/23 07:47 Nasal Cannula 2.5 04/10/23 07:49 04/10/23 04:37 04/10/23 04:36 04/10/23 04:34 04/10/23 04:21 04/10/23 02:30 Nasal Cannula 3 04/10/23 03:43 Nasal Cannula 3 04/10/23 02:20 Nasal Cannula 3 04/10/23 01:58 Nasal Cannula 2 04/10/23 01:28 Nasal Cannula 2 04/09/23 23:24 Nasal Cannula 2 04/09/23 23:24 Room Air PG Care Time/CCT Total # of Minutes Spent Total Time Spent with Patient: Total time spent is greater than 50% in coordination of care (as documented) at patient's floor/unit and/or counseling patient: Coding Level of Care Code 28159 IN/OBS CONSULT LVL 4,60M Diagnoses Hematemesis K92.0
[2023-04-10 14:41] LABS: Hematocrit (blood only) 37.7 % (42.0-52.0); Hemoglobin 12.9 g/dl (14.0-18.0)
[2023-04-10] MEDS: ALBUT/IPRATROP 3MG/0.5MG NEB 3 ML VIAL NEB PRN ×2 (15:22→21:13)
[2023-04-10] MEDS: ACETAMINOPHEN 1,000 MG/100 ML VIAL IV PRN (15:24)
[2023-04-10 16:07] LABS: A calco-baum cmplx NotReported Not Detected (NotDetected); Bact fragilis Not Reported Not Detected (NotDetected); C auris Not Reported Not Detected (NotDetected); Calbicans Not Reported Not Detected (NotDetected); Candida glabrata Not Reported Not Detected (NotDetected); Candida krusei Not Reported Not Detected (NotDetected); Cneoformans/gatti Not Reported Not Detected (NotDetected); Cparapsilosis Not Reported Not Detected (NotDetected); Ctropicalis Not Reported Not Detected (NotDetected); E cloacae compx Not Reported Not Detected (NotDetected); Efaecalis Not Reported Not Detected (NotDetected); Efaecium Not Reported Not Detected (NotDetected); Enterobacterales Not Reported Not Detected (NotDetected); Escherichia coli Not Reported Not Detected (NotDetected); H influenzae Not Reported Not Detected (NotDetected); K aerogenes Not Reported Not Detected (NotDetected); Koxytoca Not Reported Not Detected (NotDetected); Kpneumoniae grp Not Reported Not Detected (NotDetected); Lmonocyt Not Reported Not Detected (NotDetected); N meningitidis Not Reported Not Detected (NotDetected); P aeruginosa Not Reported Not Detected (NotDetected); Proteus spp Not Reported Not Detected (NotDetected); Salmonella spp Not Reported Not Detected (NotDetected); Smarcescens Not Reported Not Detected (NotDetected); Staph lugdunensis Not Reported Not Detected (NotDetected); Staph spp. Not Reported DETECTED (NotDetected); Staphaureus Not Reported Not Detected (NotDetected); Staphepi Not Reported DETECTED (NotDetected); Stenmaltophilia Not Reported Not Detected (NotDetected); Strep agal(GrpB) Not Reported Not Detected (NotDetected); Strep pneum Not Reported Not Detected (NotDetected); Strep pyog (GrpA) Not Reported Not Detected (NotDetected); Strep spp Not Reported Not Detected (NotDetected); mecAC Resistant Gene Not Detected (NotDetected)
[2023-04-10 16:20] LABS: Staphylococcus epidermidis DETECTED (NotDetected); Staphylococcus spp. DETECTED (NotDetected)
[2023-04-10 20:13] LABS: Hematocrit (blood only) 36.8 % (42.0-52.0); Hemoglobin 12.8 g/dl (14.0-18.0)
[2023-04-10] MEDS: NICOTINE 14 MG/24 HR PATCH TD SCH (22:39)
[2023-04-11] MEDS: ACETAMINOPHEN 1,000 MG/100 ML VIAL IV PRN ×2 (04:03→11:44)
[2023-04-11] MEDS: METOPROLOL TARTRATE 1 MG/ML VIAL IV SCH ×5 (04:04→20:45)
[2023-04-11] MEDS: INSULIN ASPART PER UNIT CHARGE SC SCH ×3 (06:43→18:26)
--- NOTE | 2023-04-11 07:20 | XRay Report ---
SINGLE VIEW CHEST CLINICAL HISTORY: Vomiting. FINDINGS: An AP, portable, upright chest radiograph is compared to study dated 04/09/2023 and correlat ed with chest CT dated 07/18/2021. The examination is degraded by portable technique and patient rotat ion. The cardiomediastinal silhouette is unremarkable. The lungs and pleural spaces are clear. No pn eumothorax is seen. The bony thorax is grossly intact. Fusion hardware is noted in the lower cervical spine. IMPRESSION: No active disease in the chest. ACT 112: Negative or not required by law. Electronically signed by: Kelton Thomas M.D. 04/11/2023 7:19 AM
[2023-04-11] MEDS: PANTOprazole 40 MG in SYRINGE 0 ML IV SCH ×2 (08:52→20:45)
[2023-04-11] MEDS: THIAMINE HCL 100 MG in SYRINGE 9 ML IV SCH (08:52)
[2023-04-11] MEDS: FOLIC ACID 1 MG in SYRINGE 9.8 ML IV SCH (08:52)
[2023-04-11] MEDS: NICOTINE 14 MG/24 HR PATCH TD SCH (08:52)
--- NOTE | 2023-04-11 08:54 | History & Physical Bridge Note ---
Date of Service April 11, 2023 History & Physical Bridge Note I have examined the patient, reviewed the History & Physical and in the interval since the performance of the History & Physical I have noted the following changes of clinical significance: Patient is notably more awake/alert/oriented. He is agreeable to proceeding with GI testing today and notes that he has not had further episodes of hematemesis overnight. He has been NPO since prior to midnight. Patient does note to me that prior to this event, he had not been taking his PPI at home because he was out of town. Keep NPO & proceed with EGD today. Continue IV Protonix 40 mg BID at the present time.
[2023-04-11] MEDS: PIPERACILLIN/TAZOBACTAM 4.5 GM in DEXTROSE 5% 100 ML IV SCH (08:56)
[2023-04-11 09:27] LABS: Basophils # (auto) 0.06 K/uL (0-0.2); Basophils % (auto) 0.7 %; Eosinophils # (auto) 0.21 K/uL (0-0.50); Eosinophils % (auto) 2.5 %; Hemoglobin 12.9 g/dl (14.0-18.0); Immature Granulocytes # (auto) 0.01 K/uL (0.01-0.20); Immature Granulocytes % (auto) 0.1 %; Lymphocytes # (auto) 1.49 K/uL (1.2-3.4); Lymphocytes % (auto) 17.4 %; Mean Corpuscular Hemoglobin 33.9 pg (25.0-34.0); Mean Corpuscular Hgb Conc 33.9 g/dL (32.0-36.0); Mean Platelet Volume 10.1 fL (9.4-12.4); Monocytes # (auto) 0.56 K/uL (0.11-0.59); Monocytes % (auto) 6.5 %; Neutrophils # (auto) 6.22 K/uL (1.40-6.50); Neutrophils % (auto) 72.8 %; Platelet Count 176 K/uL (130-400); RDW Coefficient of Variation 12.1 % (11.5-14.5); RDW Standard Deviation 44.4 fL (36.4-46.3); White Blood Count 8.55 K/ul (4.8-10.8)
[2023-04-11 09:41] LABS: Albumin Globulin Ratio 1.1 (0.9-2); Albumin Level 3.4 gm/dl (3.4-5.0); BUN Creatinine Ratio 18.4 (10-20); Bilirubin,Total 1.5 mg/dl (0.2-1.0); Calcium 8.8 mg/dl (8.6-10.3); Creatinine Clr Calc Pharmacy 75.1 ml/min; Est GFR (African American) 87.7 ml/min; Est GFR (Non-African American) 75.6 ml/min; Magnesium 1.7 mg/dl (1.7-2.4); Potassium 3.6 mmol/L (3.5-5.1); Total Protein 6.4 gm/dl (6.0-8.3)
--- NOTE | 2023-04-11 11:02 | Gastroenterology Progress Note ---
Date of Service April 11, 2023 Assessment & Plan (1) Alcohol withdrawal: (2) Gastrointestinal hemorrhage with hematemesis: Plan -Continue IV Protonix 40 mg BID; Patient should be discharged on Protonix 40 mg po BID. -Defer EGD until respiratory status is improved. This will likely need to occur as an outpatient. -Monitor H/H. -Ok to advance diet. Admission and Anticipated Discharge Date Admission Date: April 10, 2023 Supervising Physician Co-Signing Physician Notes Agree with LUDMILA Whittaker as above Abd: Soft, NT, ND, +BS Continue current therapy and supportive care Subjective Patient is a 47 yo male with alcohol withdrawal, hematemesis, & history of esophagitis. He notes he has not been compliant with his PPI therapy as of lately. He notes no further hematemesis overnight. He was to undergo an EGD, unfortunately he has new oxygen requirements and is on antibiotics for aspiration pneumonitis vs COPD exacerbation. H/H 12.9/38.0. Review of Systems Constitutional: no fever and no chills Respiratory: + cough; no dyspnea Gastrointestinal: no abdominal pain and no hematemesis Physical Exam Constitutional: well developed Respiratory: no respiratory distress Cardiovascular: Rate/Rhythm: regular rate Gastrointestinal (Abdomen): normal bowel sounds, soft, nontender, no hepatosplenomegaly Results & Data Results & Data Vital Signs (Past 12 Hours) Vital Signs Temp Pulse Pulse Resp BP BP Pulse Ox 04/11/23 09:26 68 121/70 04/11/23 08:56 88 134/78 04/11/23 08:06 36.9 C 74 16 138/91 100 04/11/23 03:48 37.0 C 68 20 114/73 98 04/10/23 23:30 60 O2 Del Method O2 Flow Rate 04/11/23 09:26 04/11/23 08:56 04/11/23 08:06 Nasal Cannula 2 04/11/23 03:48 Nasal Cannula 2.0 04/10/23 23:30 PG Care Time/CCT Total # of Minutes Spent Total Time Spent with Patient: Total time spent is greater than 50% in coordination of care (as documented) at patient's floor/unit and/or counseling patient: Coding Level of Care Code 61524 SUB INP/OBS CARE 3/50MIN Diagnoses Alcohol withdrawal F10.930 Complication of substance-induced condition: uncomplicated Gastrointestinal hemorrhage with hematemesis K92.0 (1) Alcohol withdrawal Complication of substance-induced condition: uncomplicated Qualified Code(s): F10.930 - Alcohol use, unspecified with withdrawal, uncomplicated
--- NOTE | 2023-04-11 11:25 | Hospitalist Progress Note ---
Date of Service April 11, 2023 Assessment & Plan (1) Alcohol withdrawal: Plan: Preseneted with signs of alcohol withdrawal Still on CIWA protocol No tremors on exam Continue PRN Ativan, PO Thiamine (2) Gastrointestinal hemorrhage with hematemesis: Plan: No more episodes of hematemesis since admission Plan is for EGD today (3) COPD (chronic obstructive pulmonary disease): Plan: With exacerbation still some wheeze on exaam will continue Duonebs scheduled and PRN (4) Positive blood culture: Plan: one bottle in 4 growing gram positive cocci will empirically start IV Unasyn, was on Zosyn Will continue to monitor cultures Plan continue hospitalization Admission and Anticipated Discharge Date Admission Date: April 10, 2023 Subjective patient seen and examined, still has some wheeze, plan is EGD today Review of Systems Review of Systems: All systems reviewed are negative, apart from the ones contained in the history. Physical Exam Physical Exam: The patient is awake, alert and oriented 3, well developed and well nourished, normocephalic and atraumatic, lying in bed and in no acute distress. HEENT--PERRL, EOMI, mucous membranes and oropharynx mildly dry Neck--supple. No JVD. No bruits. Thyroid normal, trachea midline, no adenopathy. Heart--normal S1 and S2. No murmurs, rubs or gallops. Lungs--expiratory wheeze Abdomen--normal bowel sounds and soft. Mild epigastric and left sided abdominal pain Extremities--no cyanosis or clubbing. No edema. Dermatologic--normal skin turgor, normal color, no abnormal lymph nodes, no rash. Neurologic--cranial nerves II through XII grossly intact. Rheumatologic--normal range of motion. Psychiatric--normal affect. Results & Data Results & Data Vital Signs (Past 12 Hours) Vital Signs Temp Pulse Pulse Resp BP BP Pulse Ox 04/11/23 09:26 68 121/70 04/11/23 08:56 88 134/78 04/11/23 08:06 98.4 F 74 16 138/91 100 04/11/23 03:48 98.6 F 68 20 114/73 98 04/10/23 23:30 60 O2 Del Method O2 Flow Rate 04/11/23 09:26 04/11/23 08:56 04/11/23 08:06 Nasal Cannula 2 08/02/23 03:48 Nasal Cannula 2.0 04/10/23 23:30 PG Care Time/CCT Total # of Minutes Spent Total Time Spent with Patient: Total time spent is greater than 50% in coordination of care (as documented) at patient's floor/unit and/or counseling patient: Coding Level of Care Code 70552 SUB INP/OBS CARE 2/35MIN Diagnoses Alcohol withdrawal F10.930 Complication of substance-induced condition: uncomplicated Gastrointestinal hemorrhage with hematemesis K92.0 COPD (chronic obstructive pulmonary disease) J44.9 Positive blood culture R78.81 Time Spent (min) 35 (1) Alcohol withdrawal Complication of substance-induced condition: uncomplicated Qualified Code(s): F10.930 - Alcohol use, unspecified with withdrawal, uncomplicated
[2023-04-11] MEDS: LORazepam 2 MG/1 ML VIAL IV PRN ×2 (11:43→21:52)
[2023-04-11] MEDS: AMPICILLIN/SULBACTAM SOD 3,000 MG in 0.9 % SODIUM CHLORIDE 100 ML IV SCH ×2 (16:48→21:52)
--- NOTE | 2023-04-11 23:08 | Electrocardiogram Report ---
Test Reason : Blood Pressure : / mmHG Vent. Rate : 112 BPM Atrial Rate : 112 BPM P-R Int : 130 ms QRS Dur : 084 ms QT Int : 324 ms P-R-T Axes : 083 090 071 degrees QTc Int : 442 ms Sinus tachycardia Rightward axis Cannot rule out Anterior infarct , age undetermined Abnormal ECG When compared with ECG of 13-SEP-2022 15:57, No significant change was found Confirmed by Charly Chambers ([id number]) on 04/11/2023 11:07:48 PM Referred By: REFERRED SELF Confirmed By:Charly Chambers
[2023-04-12] MEDS: INSULIN ASPART PER UNIT CHARGE SC SCH ×2 (00:33→06:32)
[2023-04-12] MEDS: METOPROLOL TARTRATE 1 MG/ML VIAL IV SCH ×4 (00:35→12:18)
[2023-04-12] MEDS: ACETAMINOPHEN 1,000 MG/100 ML VIAL IV PRN ×2 (03:23→08:54)
[2023-04-12] MEDS: AMPICILLIN/SULBACTAM SOD 3,000 MG in 0.9 % SODIUM CHLORIDE 100 ML IV SCH ×4 (03:49→21:27)
[2023-04-12 06:06] LABS: Basophils # (auto) 0.07 K/uL (0-0.2); Basophils % (auto) 1.1 %; Eosinophils # (auto) 0.35 K/uL (0-0.50); Eosinophils % (auto) 5.6 %; Hematocrit (blood only) 36.3 % (42.0-52.0); Hemoglobin 12.7 g/dl (14.0-18.0); Immature Granulocytes # (auto) 0.02 K/uL (0.01-0.20); Immature Granulocytes % (auto) 0.3 %; Lymphocytes # (auto) 1.55 K/uL (1.2-3.4); Lymphocytes % (auto) 24.9 %; Mean Corpuscular Hemoglobin 33.7 pg (25.0-34.0); Mean Corpuscular Volume 96.3 fL (80.0-100.0); Mean Platelet Volume 9.8 fL (9.4-12.4); Monocytes # (auto) 0.52 K/uL (0.11-0.59); Monocytes % (auto) 8.4 %; Neutrophils # (auto) 3.71 K/uL (1.40-6.50); Neutrophils % (auto) 59.7 %; Platelet Count 182 K/uL (130-400); RDW Coefficient of Variation 11.8 % (11.5-14.5); RDW Standard Deviation 41.5 fL (36.4-46.3); Red Blood Count 3.77 M/uL (4.70-6.10); White Blood Count 6.22 K/ul (4.8-10.8)
[2023-04-12 06:19] LABS: Albumin Globulin Ratio 1.1 (0.9-2); Albumin Level 3.2 gm/dl (3.4-5.0); BUN Creatinine Ratio 23.6 (10-20); Bilirubin,Total 1.1 mg/dl (0.2-1.0); Calcium 8.4 mg/dl (8.6-10.3); Creatinine Clr Calc Pharmacy 95.8 ml/min; Est GFR (African American) 117.2 ml/min; Est GFR (Non-African American) 101.1 ml/min; Globulin 2.9 gm/dl (2.5-4.0); Magnesium 1.6 mg/dl (1.7-2.4); Potassium 3.5 mmol/L (3.5-5.1); Total Protein 6.1 gm/dl (6.0-8.3)
[2023-04-12] MEDS: THIAMINE HCL 100 MG in SYRINGE 9 ML IV SCH (08:25)
[2023-04-12] MEDS: PANTOprazole 40 MG in SYRINGE 0 ML IV SCH ×2 (08:25→20:41)
[2023-04-12] MEDS: NICOTINE 14 MG/24 HR PATCH TD SCH (08:26)
[2023-04-12] MEDS: FOLIC ACID 1 MG in SYRINGE 9.8 ML IV SCH (08:27)
[2023-04-12] MEDS ORDERED: Nursing to Pharmacy Communication SCH (09:00)
[2023-04-12] MEDS ORDERED: CHLORASEPTIC 1.4% SOLN 180 ML BTL MT PRN (10:42)
--- NOTE | 2023-04-12 11:01 | Hospitalist Progress Note ---
Date of Service April 12, 2023 Assessment & Plan (1) Alcohol withdrawal: Plan: Patient presented to the hospital with signs of alcohol withdrawal Still on CIWA protocol No tremors on exam Continue PRN Ativan, PO Thiamine (2) Gastrointestinal hemorrhage with hematemesis: Plan: No more episodes of hematemesis since admission Initial plan was for EGD yesterday but this has been deferred to outpatient (3) COPD (chronic obstructive pulmonary disease): Plan: With exacerbation No more wheeze on exam today will continue Duonebs scheduled and PRN (4) Positive blood culture: Plan: one bottle in 4 growing gram positive cocci, could be contamination will empirically start IV Unasyn, was on Zosyn Will continue to monitor cultures Plan Hopefully discharge tomorrow if no further cultures Admission and Anticipated Discharge Date Admission Date: April 10, 2023 Subjective patient seen and examined, feels overall better, EGD was deferred yesterday Review of Systems Review of Systems: All systems reviewed are negative, apart from the ones contained in the history. Physical Exam Physical Exam: The patient is awake, alert and oriented 3, well developed and well nourished, normocephalic and atraumatic, lying in bed and in no acute distress. HEENT--PERRL, EOMI, mucous membranes and oropharynx mildly dry Neck--supple. No JVD. No bruits. Thyroid normal, trachea midline, no adenopathy. Heart--normal S1 and S2. No murmurs, rubs or gallops. Lungs--expiratory wheeze Abdomen--normal bowel sounds and soft. Mild epigastric and left sided abdominal pain Extremities--no cyanosis or clubbing. No edema. Dermatologic--normal skin turgor, normal color, no abnormal lymph nodes, no rash. Neurologic--cranial nerves II through XII grossly intact. Rheumatologic--normal range of motion. Psychiatric--normal affect. Results & Data Results & Data Vital Signs (Past 12 Hours) Vital Signs Temp Pulse Pulse Resp BP BP BP 04/12/23 10:52 62 04/12/23 10:30 66 172/96 H 04/12/23 10:25 97.5 F L 66 16 172/96 H 04/12/23 09:02 82 158/90 H 04/12/23 08:04 98.1 F 82 18 158/90 H 04/12/23 03:54 58 L 151/85 H 04/12/23 03:24 70 155/86 H 04/12/23 03:15 97.7 F 70 20 155/86 H 04/12/23 00:00 68 04/11/23 23:42 98.1 F 66 18 149/98 H 04/12/23 00:35 56 L Pulse Ox O2 Del Method O2 Flow Rate 04/12/23 10:52 04/12/23 10:30 04/12/23 10:25 98 Room Air 04/12/23 09:02 04/12/23 08:04 97 Room Air 04/12/23 03:54 04/12/23 03:24 04/12/23 03:15 96 Room Air 04/12/23 00:00 04/11/23 23:42 97 Nasal Cannula 1.0 04/12/23 00:35 PG Care Time/CCT Total # of Minutes Spent Total Time Spent with Patient: Total time spent is greater than 50% in coordination of care (as documented) at patient's floor/unit and/or counseling patient: Coding Level of Care Code 24142 SUB INP/OBS CARE 2/35MIN Diagnoses Alcohol withdrawal F10.930 Complication of substance-induced condition: uncomplicated Gastrointestinal hemorrhage with hematemesis K92.0 COPD (chronic obstructive pulmonary disease) J44.9 Positive blood culture R78.81 Time Spent (min) 35 (1) Alcohol withdrawal Complication of substance-induced condition: uncomplicated Qualified Code(s): F10.930 - Alcohol use, unspecified with withdrawal, uncomplicated
[2023-04-12] MEDS ORDERED: INSULIN ASPART PER UNIT CHARGE SC SCH (11:30)
[2023-04-12] MEDS: cloNIDine HCL 0.1 MG TAB PO SCH ×2 (13:25→20:41)
[2023-04-12] MEDS ORDERED: hydrALAZINE HCL 20 MG/ML VIAL IV STA (15:26)
[2023-04-13] MEDS: AMPICILLIN/SULBACTAM SOD 3,000 MG in 0.9 % SODIUM CHLORIDE 100 ML IV SCH (03:02)
[2023-04-13] MEDS: ONDANSETRON INJ 2 MG/ML 2 ML VIAL IV PRN (03:05)
[2023-04-13 06:40] LABS: Hematocrit (blood only) 36.6 % (42.0-52.0); Mean Corpuscular Hemoglobin 33.2 pg (25.0-34.0); Mean Corpuscular Hgb Conc 35.5 g/dL (32.0-36.0); Mean Corpuscular Volume 93.6 fL (80.0-100.0); Platelet Count 190 K/uL (130-400); RDW Coefficient of Variation 11.5 % (11.5-14.5); RDW Standard Deviation 39.8 fL (36.4-46.3); Red Blood Count 3.91 M/uL (4.70-6.10); White Blood Count 5.52 K/ul (4.8-10.8)
[2023-04-13 07:00] LABS: BUN Creatinine Ratio 13.9 (10-20); Calcium 8.5 mg/dl (8.6-10.3); Creatinine Clr Calc Pharmacy 110.5 ml/min; Est GFR (African American) 123.1 ml/min; Est GFR (Non-African American) 106.2 ml/min; Magnesium 1.6 mg/dl (1.7-2.4); Potassium 3.4 mmol/L (3.5-5.1)
[2023-04-13] MEDS: MAGNESIUM SULFATE / D5W 1 GM/100 ML BAG IV SCH ×2 (08:49→10:25)
[2023-04-13] MEDS: FOLIC ACID 1 MG in SYRINGE 9.8 ML IV SCH (09:01)
[2023-04-13] MEDS: PANTOprazole 40 MG in SYRINGE 0 ML IV SCH ×2 (09:01→20:44)
[2023-04-13] MEDS: THIAMINE HCL 100 MG in SYRINGE 9 ML IV SCH (09:02)
[2023-04-13] MEDS: cloNIDine HCL 0.1 MG TAB PO SCH ×3 (09:02→20:44)
[2023-04-13] MEDS: NICOTINE 14 MG/24 HR PATCH TD SCH (09:03)
[2023-04-13] MEDS ORDERED: KETOROLAC TROMETHAMINE 15 MG/ML VIAL IV ONE (10:01)
[2023-04-13] MEDS: AMOXICILLIN/CLAVULANATE 875 MG TAB PO SCH ×2 (10:19→17:29)
--- NOTE | 2023-04-13 11:04 | Hospitalist Progress Note ---
Date of Service April 13, 2023 Assessment & Plan (1) Alcohol withdrawal: Plan: Patient presented to the hospital with signs of alcohol withdrawal Still on CIWA protocol No tremors on exam, hasnt required ativan in a while Continue PRN Ativan, PO Thiamine (2) Gastrointestinal hemorrhage with hematemesis: Plan: No more episodes of hematemesis since admission Initial plan was for EGD, but this has been deferred to outpatient (3) COPD (chronic obstructive pulmonary disease): Plan: With exacerbation No more wheeze on exam today will continue Duonebs scheduled and PRN (4) Positive blood culture: Plan: one bottle in 4 growing gram positive cocci, most likely a contaminant patient has been afebrile, wbc wnl Initially on Unasyn, transitioned to Augmentin for what its worth Repeat culture negative Plan I wanted to discharge patient today however he states he feels very weak, consulted PT Admission and Anticipated Discharge Date Admission Date: April 10, 2023 Subjective patient seen and examined, feels overall better, EGD was deferred for outpatient, Review of Systems Review of Systems: All systems reviewed are negative, apart from the ones contained in the history. Physical Exam Physical Exam: The patient is awake, alert and oriented 3, well developed and well nourished, normocephalic and atraumatic, lying in bed and in no acute distress. HEENT--PERRL, EOMI, mucous membranes and oropharynx mildly dry Neck--supple. No JVD. No bruits. Thyroid normal, trachea midline, no adenopathy. Heart--normal S1 and S2. No murmurs, rubs or gallops. Lungs--expiratory wheeze Abdomen--normal bowel sounds and soft. Mild epigastric and left sided abdominal pain Extremities--no cyanosis or clubbing. No edema. Dermatologic--normal skin turgor, normal color, no abnormal lymph nodes, no rash. Neurologic--cranial nerves II through XII grossly intact. Rheumatologic--normal range of motion. Psychiatric--normal affect. Results & Data Results & Data Vital Signs (Past 12 Hours) Vital Signs Temp Pulse Pulse Resp BP BP Pulse Ox 04/13/23 10:54 04/13/23 08:29 61 04/13/23 08:00 98.1 F 58 L 18 138/79 96 04/13/23 03:11 97.9 F 61 17 130/78 97 04/13/23 00:29 98.1 F 77 18 147/93 H 96 O2 Del Method 04/13/23 10:54 Room Air 04/13/23 08:29 04/13/23 08:00 Room Air 04/13/23 03:11 Room Air 04/13/23 00:29 Room Air PG Care Time/CCT Total # of Minutes Spent Total Time Spent with Patient: Total time spent is greater than 50% in coordination of care (as documented) at patient's floor/unit and/or counseling patient: Coding Level of Care Code 93161 SUB INP/OBS CARE 2/35MIN Diagnoses Alcohol withdrawal F10.930 Complication of substance-induced condition: uncomplicated Gastrointestinal hemorrhage with hematemesis K92.0 COPD (chronic obstructive pulmonary disease) J44.9 Positive blood culture R78.81 Time Spent (min) 35 (1) Alcohol withdrawal Complication of substance-induced condition: uncomplicated Qualified Code(s): F10.930 - Alcohol use, unspecified with withdrawal, uncomplicated
[2023-04-13] MEDS: ACETAMINOPHEN 325 MG TAB PO PRN ×2 (15:29→20:49)
[2023-04-14 06:08] LABS: BUN Creatinine Ratio 10.3 (10-20); Calcium 8.6 mg/dl (8.6-10.3); Creatinine Clr Calc Pharmacy 100.5 ml/min; Est GFR (African American) 118.3 ml/min; Est GFR (Non-African American) 102.1 ml/min; Potassium 3.6 mmol/L (3.5-5.1)
[2023-04-14] MEDS: PANTOprazole 40 MG in SYRINGE 0 ML IV SCH ×2 (08:30→20:33)
[2023-04-14] MEDS: cloNIDine HCL 0.1 MG TAB PO SCH ×3 (08:30→20:32)
[2023-04-14] MEDS: THIAMINE HCL 100 MG TAB PO SCH (08:31)
[2023-04-14] MEDS: NICOTINE 14 MG/24 HR PATCH TD SCH (08:31)
[2023-04-14] MEDS: FOLIC ACID 1 MG TAB PO SCH (08:31)
[2023-04-14] MEDS: AMOXICILLIN/CLAVULANATE 875 MG TAB PO SCH ×2 (08:31→17:14)
[2023-04-14] MEDS: ACETAMINOPHEN 325 MG TAB PO PRN ×2 (08:42→20:37)
[2023-04-14 11:42] LABS: Magnesium 1.9 mg/dl (1.7-2.4)
[2023-04-14 12:09] LABS: Hematocrit (blood only) 35.9 % (42.0-52.0); Hemoglobin 12.8 g/dl (14.0-18.0); Mean Corpuscular Hemoglobin 34.6 pg (25.0-34.0); Mean Corpuscular Hgb Conc 35.7 g/dL (32.0-36.0); Platelet Count 183 K/uL (130-400); RDW Coefficient of Variation 11.9 % (11.5-14.5); RDW Standard Deviation 42.2 fL (36.4-46.3); White Blood Count 4.16 K/ul (4.8-10.8)
[2023-04-14] MEDS: UMECLIDINIUM/VILANTEROL 62.5/25MCG 7 PUFFS/INHALER INH SCH (12:10)
--- NOTE | 2023-04-14 17:05 | Hospitalist Progress Note ---
Date of Service April 14, 2023 Assessment & Plan (1) Alcohol withdrawal: Plan: Patient presented to the hospital with signs of alcohol withdrawal Still on CIWA protocol No tremors on exam, hasnt required ativan in a while Continue PRN Ativan, PO Thiamine and folic acid (2) Gastrointestinal hemorrhage with hematemesis: Plan: No more episodes of hematemesis since admission Initial plan was for EGD, but this has been deferred to outpatient Hemoglobin stable Continue protonix (3) COPD (chronic obstructive pulmonary disease): Plan: With exacerbation versus possible aspiration pneumonia/pneumonitis Mild wheeze on exam today, the patient does not feel significantly dyspneic and normal O2 saturations Started Duonebs scheduled and PRN Initially on Zosyn --> Unsayn --> transitioned to Augmentin and will continue this possible from aspiration pneumonia (4) Positive blood culture: Plan: one bottle in 4 growing gram positive cocci, most likely a contaminant patient has been afebrile, wbc wnl Initially on Zosyn --> Unsayn --> transitioned to Augmentin and will continue this possible from aspiration pneumonia Repeat culture negative Plan PT: to return home Admission and Anticipated Discharge Date Admission Date: April 10, 2023 Subjective * Denies any acute concerns today. Reports breathing well and at baseline. Denies any chest pain, palpitations, lightheadedness or dizziness. Tolerating p.o. well. Voiding and stooling without concern. Physical Exam Physical Exam: General: Well-appearing, NAD Cardiovascular: RRR, no M/R/G Pulmonary: Mild expiratory wheezing Abdomen: Soft, NT/ND, no guarding Extremities: Moving all extremities, no pedal edema Integumentary: No suspicious rash or lesion on exposed skin Neurologic: AAOx3, no focal deficits Psychiatric: Appropriate mood/affect Results & Data Results & Data Vital Signs (Past 12 Hours) Vital Signs Temp Pulse Pulse Resp BP BP Pulse Ox 04/14/23 15:27 37.2 C 63 16 122/84 98 04/14/23 11:59 04/14/23 11:29 36.7 C 69 16 125/84 97 04/14/23 07:55 51 L 04/14/23 07:53 36.8 C 57 L 16 130/79 97 O2 Del Method 04/14/23 15:27 Room Air 04/14/23 11:59 Room Air 04/14/23 11:29 Room Air 04/14/23 07:55 04/14/23 07:53 Room Air Laboratory Results Hemoglobin stable at 12.8, sodium mildly low to 133, potassium increased to 3.6, magnesium normal at 1.9, calcium normal at 8.6 PG Care Time/CCT Total # of Minutes Spent Total Time Spent with Patient: Total time spent is greater than 50% in coordination of care (as documented) at patient's floor/unit and/or counseling patient: Coding Level of Care Code 25175 SUB INP/OBS CARE 10/04MIN Diagnoses Alcohol withdrawal F10.930 Complication of substance-induced condition: uncomplicated Gastrointestinal hemorrhage with hematemesis K92.0 COPD (chronic obstructive pulmonary disease) J44.9 Positive blood culture R78.81 (1) Alcohol withdrawal Complication of substance-induced condition: uncomplicated Qualified Code(s): F10.930 - Alcohol use, unspecified with withdrawal, uncomplicated
[2023-04-15] MEDS: PANTOprazole 40 MG in SYRINGE 0 ML IV SCH (08:59)
[2023-04-15] MEDS: cloNIDine HCL 0.1 MG TAB PO SCH (08:59)
[2023-04-15] MEDS: UMECLIDINIUM/VILANTEROL 62.5/25MCG 7 PUFFS/INHALER INH SCH (08:59)
[2023-04-15] MEDS: THIAMINE HCL 100 MG TAB PO SCH (09:00)
[2023-04-15] MEDS: FOLIC ACID 1 MG TAB PO SCH (09:00)
[2023-04-15] MEDS: AMOXICILLIN/CLAVULANATE 875 MG TAB PO SCH (09:00)
[2023-04-15] MEDS: NICOTINE 14 MG/24 HR PATCH TD SCH (09:01)
--- NOTE | 2023-04-15 11:56 | Discharge Summary ---
Date of Service April 15, 2023 Admission HPI Per Admitting Provider The patient is a 47-year-old male with a past medical history including alcohol abuse, esophagitis, tobacco use disorder, COPD, peripheral neuropathy upper extremities, vitamin D deficiency, orthostasis, history of DVT/PE, acute upper GI bleeding, GERD, labile hypertension, COPD, and alcoholic liver disease. Patient presented to the emergency department with shortness of breath, hematemesis, last alcohol use about 3 days ago with concerns regarding alcohol withdrawal. From the ED the patient received the following: Protonix 80 mg IV, banana bag, normal saline 1 L x 2, lorazepam 2 mg then 1 mg IV x2, Zofran 4 mg IV and a DuoNeb. Significant laboratories: WBC 13.38, hemoglobin 16.4, hematocrit 46.7, glucose 173, total bilirubin 2.4 ABG: pH 7.48, PCO2 42, PO2 68, pulse ox 95.2% Admission Exam Per Admitting Provider The patient is awake, alert and oriented 3, well developed and well nourished, normocephalic and atraumatic, lying in bed and in no acute distress. HEENT--PERRL, EOMI, mucous membranes and oropharynx dry. Neck--supple. No JVD. No bruits. Thyroid normal, trachea midline, no adenopathy. Heart--normal S1 and S2. No murmurs, rubs or gallops. Lungs--coarse breath sounds bilaterally. Respiratory distress, no accessory muscle use. Rhonchorous cough Abdomen--normal bowel sounds and soft. Nontender. Nondistended, no hernias or masses, no organomegaly. Extremities--no cyanosis or clubbing. No edema. Dermatologic--normal skin turgor, normal color, no abnormal lymph nodes, no rash. Neurologic--cranial nerves II through XII grossly intact. Rheumatologic--normal range of motion. Psychiatric--normal affect. Principal Diagnosis Hematemesis, Alcohol Withdrawal Discharge Exam General: Well-appearing, NAD HEENT: Normal conjunctivae Cardiovascular: RRR, no M/R/G Pulmonary: CTAB, no wheezing Abdomen: Soft, NT/ND, no guarding Extremities: Moving all extremities, no pedal edema Integumentary: No suspicious rash or lesion on exposed skin Neurologic: AAOx3, no focal deficits Psychiatric: Appropriate mood/affect Discharge Data Allergies Allergy/AdvReac Type Severity Reaction Status Date / Time No Known Allergies Allergy Mild Verified 11/16/22 13:00 Consultations 04/10/23 00:50 ED Decision to Admit Stat 04/10/23 05:48 Consult Gastroenterology Routine 04/14/23 16:27 Consult RAH bladder cleaner Routine Procedures Performed Operation Date: 04/11/23 16:45 <No data on this case meets the specified criteria> Ordered Studies Chest x-ray 04/09/2023: FINDINGS: 2 AP, portable, upright chest radiographs are compared to study dated 09/13/2022 and correlated with chest CT dated 07/18/2021. The cardiomediastinal silhouette is unremarkable. The lungs and pleural spaces are clear. No pneumothorax is seen. The bony thorax is grossly intact. Fusion hardware is noted in the lower cervical spine. IMPRESSION: No active disease in the chest. KUB x-ray 04/09/2023: FINDINGS: 2 AP, portable, supine abdominal radiographs are compared to study dated 09/13/2022 and correlated with abdominal CT dated 04/14/2021. There is a nonobstructed abdominal bowel gas pattern. No evidence of intraperitoneal free air is seen on these supine images. There are no abnormal abdominal calcifications. The bony structures appear intact. IMPRESSION: No acute abnormality is identified. Chest x-ray 04/29/2023: FINDINGS: An AP, portable, upright chest radiograph is compared to study dated 04/09/2023 and correlated with chest CT dated 07/18/2021. The examination is degraded by portable technique and patient rotation. The cardiomediastinal silhouette is unremarkable. The lungs and pleural spaces are clear. No pneumothorax is seen. The bony thorax is grossly intact. Fusion hardware is noted in the lower cervical spine. IMPRESSION: No active disease in the chest. Hospital Course (1) Alcohol withdrawal: (2) Gastrointestinal hemorrhage with hematemesis: (3) COPD (chronic obstructive pulmonary disease): (4) Positive blood culture: Plan (1) Alcohol withdrawal: Patient presented to the hospital with signs of alcohol withdrawal Monitored on CIWA protocol with ativan - no ativan needed in the few days prior to discharge Was on PO Thiamine and folic acid while inpatient - continue home Multivitamin on discharge (2) Gastrointestinal hemorrhage with hematemesis: No more episodes of hematemesis since admission Initial plan was for EGD, but per GI this has been deferred to outpatient - message sent to nurse navigator to help arrange Hemoglobin stable Continue protonix 40 BID per GI Recommend recheck of hemoglobin at PCP f/u visit, consider further evaluation with iron studies, folate, b12 as well (3) COPD (chronic obstructive pulmonary disease): With exacerbation versus possible aspiration pneumonia/pneumonitis No oral or IV steroids administered, discharged on home inhalers Initially on Zosyn --> Unsayn --> transitioned to Augmentin for possible aspirat ion pneumonia. Completed at least 5 day course of antibiotics and patient doing well so no further antibiotics on discharge (4) Positive blood culture: One bottle from 04/09 BCx with bacillus species and coag neg staph, likely a contaminant patient has been afebrile, wbc wnl Initially on Zosyn --> Unsayn --> transitioned to Augmentin continued this possible from aspiration pneumonia, discontinued on discharge as above Repeat BCx 04/12 negative Total Time Total Time Spent Total Time Spent (In Minutes): 40 minutes Total Time Includes: Examination of the Patient, Discharge Planning and Medication Reconciliation Discharge Plan Discharge Items Patient Disposition: Home - Self-Care Reason For Visit: ALCOHOL WITHDRAWAL, HEMATEMESIS Discharge Diagnosis: Hematemesis Activity: Resume your previous activity Non-emergency contact: Primary Care Provider Call non-emergency contact if: your symptoms worsen Follow-up/Referrals: Eddy Wylie DO [Primary Care Provider] - Diet: Regular Addtl Attending Provider Instructions: You are admitted with a GI bleed and had anemia from this. You were seen by intelligence director who will plan for doing an endoscopy outpatient. 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 Make sure to have a follow up appointment with your primary care provider to follow up on your blood pressure, breathing, and anemia from the GI bleed. You will be scheduled for an outpatient endoscopy - if you don't hear from anybody regarding this by Sunday, call your primary care provider's office. You also went through alcohol withdrawal - recommend abstaining from alcohol use and seek further help and resources from your primary care provider. You are also encouraged to decrease your tobacco use. Pending Studies at Discharge: Yes (Outpatient EGD to be coordinated by nurse navigator) Stand-Alone Forms: [facility], Smoking Cessation Medications and DC Order Prescriptions: New pantoprazole 40 mg tablet,delayed release (DR/EC) 40 mg PO BID Qty: 60 0RF Continued albuterol sulfate 90 mcg/actuation HFA aerosol inhaler 2 puff inhalation Q6H PRN (Reason: Shortness Of Breath Or Wheezing) Qty: 18 3RF clonidine HCl 0.1 mg tablet 0.1 mg PO BID Qty: 60 5RF metoprolol tartrate 25 mg tablet 25 mg PO BID PRN (Reason: palpitations) Qty: 60 5RF varenicline 1 mg tablet 1 mg PO BID Qty: 56 3RF Anoro Ellipta 62.5-25 mcg/actuation blister with device 1 ea INHALATION QAM Qty: 60 11RF Mylanta Coat-Cool 1,200 mg-270 mg -80 mg/10 mL suspension 10 ml PO AC Qty: 355 0RF Patient Comments: currently not taking, ran out multivitamin Tablet 1 tab PO QAM amitriptyline 25 mg tablet 25 mg PO HS Discontinued pantoprazole [Protonix] 40 mg tablet,delayed release (DR/EC) 40 mg PO HS Discharge Orders: Discharge Order (Routine); Ordered 04/15/23 Ordered By: Silvia Powell/Other Patient Handouts: Alcohol Addiction, Alcoholism: Getting Help Admission Data Admit Date/Time: 04/10/23 01:28 Attending Provider: Silvia Lorenzo Admit Provider: Kvng Rodriguez Primary Care Provider: Eddy Wylie Other Providers: Kvng Rodriguez ; Juan Damian Other Interventions: Discharge Summary Assessment (RN) Last Done: 04/15/23 12:43 Coding Level of Care Code 71822 INP/OBS DISCH >30 MIN Diagnoses Alcohol withdrawal F10.930 Complication of substance-induced condition: uncomplicated Gastrointestinal hemorrhage with hematemesis K92.0 COPD (chronic obstructive pulmonary disease) J44.9 Positive blood culture R78.81
== END 2023-04-15 13:15 | disposition home or self-care (01) | DRG 897 ==
LOC: ED 21:29 → 4W 04-10 01:28 → SUATTDRO 04-10 01:28 → 4W 04-10 01:58